=== PATIENT | female | born 1970 | race Caucasian/White ===

== ENCOUNTER 2016-10-24 05:48 | Outpatient (CLI) | payer OTHER ==
[2016-10-22 11:11] LABS: BASOPHILS 0.1 % (0.0-2.0); EOSINOPHILS 2.4 % (0-7); HEMATOCRIT 42.2 % (36.0-48.0); HEMOGLOBIN 14.2 g/dL (12-16); IMMATURE GRANULOCYTES 0.7 % (0-5); LYMPHOCYTES 13.9 % (15-50); MCH 32.5 pg (26.0-34.0); MCHC 33.6 g/dL (31.0-37.0); MCV 96.6 fL (80.0-100.0); MEAN PLATELET VOLUME 9.5 fL (7.4-10.4); MONOCYTES 9.2 % (2-11); NEUTROPHILS 73.7 % (40-80); RBC 4.37 10x6/uL (4.00-5.40); RDW 12.8 % (11.5-14.5); WBC 14.5 10x3/uL (4.8-10.8)
[2016-10-22 11:12] LABS: PLATELET COUNT 353 10x3/uL (130-400)
[~2016-10-24] VITALS: Ht 149.9 cm; Wt 47.2 kg
[~2016-10-24 05:48] MED LIST: ABILIFY2 MG PO; HYDROCODON-ACE1 EAC7 PO; INDERAL10 MG PO; NEURONTIN 400400 MG PO; NEXIUM20 MG PO; PROZAC20 MG PO
[2016-10-24 06:01] VITALS: BP 112/66; Ht 149.9 cm; Wt 47.2 kg
[2016-10-24 06:08] LABS: HCG URINE NEGATIVE (NEGATIVE)
--- NOTE | 2016-10-24 06:33 | NUR ---
0600-DR NINO NOTIFIED OF PT WBC OF 14.2, NEW ORDER RECEIVED FOR CHEST XRAY 0615-PTS POX 86-89% ON ROOM AIR AND BASE OF LUNGS ARE WET DR NINO AWARE. 06-DR NINO HERE AT BEDSIDE SPEAKING WITH PATIENT, PT SURGERY CANCELLED AND PT GIVEN PRESCRIPTIONS x2. PT STATES UNDERSTANDING AND DENIES ANY NEEDS OR CONCERNS AT THIS TIME. PT DISCHARGED HOME IN STABLE CONDITION WITH FAMILY AT SIDE. OFFICE WILL CALL PT AND RESCHEDULE SURGERY AT A LATER DATE.
== END 2016-10-24 07:00 | disposition home or self-care (01) ==
LOC: D.SDCHOLD 05:48 → D.PAN 05:48 → D.SDCHOLD 07:00 → EDSTATUS 07:30 → D.SDCHOLD 07:30
PROVIDERS: Obstetrics & Gynecology
DX: Z53.09 Procedure and treatment not carried out because of other contraindication (principal)

== ENCOUNTER 2016-11-01 05:24 | Inpatient (IN) | payer OTHER ==
[2016-10-29 10:50] LABS: EOSINOPHILS 5.8 % (0-7); HEMATOCRIT 41.5 % (36.0-48.0); HEMOGLOBIN 13.3 g/dL (12-16); IMMATURE GRANULOCYTES 2.8 % (0-5); LYMPHOCYTES 26.5 % (15-50); MCH 32.1 pg (26.0-34.0); MCV 100.2 fL (80.0-100.0); MONOCYTES 8.3 % (2-11); NEUTROPHILS 55.6 % (40-80); PLATELET COUNT 422 10x3/uL (130-400); RBC 4.14 10x6/uL (4.00-5.40); RDW 14.8 % (11.5-14.5); WBC 9.3 10x3/uL (4.8-10.8)
[2016-11-01] VITALS (13 sets, daily range): BP systolic 86–120; BP diastolic 50–63; Ht 121.9 cm; Wt 46.7 kg
[~2016-11-01] VITALS: Ht 121.9 cm; Wt 46.7 kg
[2016-11-01 06:23] LABS: HCG URINE NEGATIVE (NEGATIVE)
--- NOTE | 2016-11-01 09:50 | NUR ---
PATIENT RECEIVED TO ROOM 1214 FROM PACU VIA STRETCHER. PATIENT ASSISTED TO BED. PATIENT ORIENTED TO ROOM AND CALL SYSTEM. INITIAL VITAL SIGNS OBTAINED. PATIENT ALSO ORIENTED TO CHARGE AIDE SYSTEM. PATIENT DENIES QUESTIONS OR CONCERNS. CALL LIGHT WITHIN REACH AND SIDE RAILS UP X 2.
--- NOTE | 2016-11-01 10:05 | NUR ---
ASSESSMENT COMPLETE AT THIS TIME. NO SIGNS OF DISTRESS NOTED.
--- NOTE | 2016-11-01 10:33 | NUR ---
Pt wanting to smoke and coffee. Explained no smoking and offered patch - pt said I guess. No coffee just yet want to see how you do on clears - water provided per request over juice or sprite. IV infusing per pump with out difficulty. STRATEGY EXECUTION CONSULTANT not used yet but working, rates pain 3 on 0-10 pain scale. Sats 95% on o2. Jain to bed side gravity, blue/green tinged urine draining without difficulty. Dressing to abd C/D/I. Family at bed side.
--- NOTE | 2016-11-01 10:43 | NUR ---
Sats 95 on 4lt o2, pt resting with eyes closed. decreased o2 to 3 lt and will monitor. Pt does not use 02 at home.
--- NOTE | 2016-11-01 11:53 | NUR ---
Resting quietly with eyes closed, aroused when scanning braclet. Sats 96 % on 2lt O2. Decreased to 2 lt and will monitor. IV site clear, villeda draing to bed side gravity without difficulty. Visitor at bedside. No needs at this time.
--- NOTE | 2016-11-01 12:30 | NUR ---
PATIENT UP IN BED EATING LUNCH. VISITOR IN ROOM. PATIENT DENIES NEEDS AT THIS TIME.
--- NOTE | 2016-11-01 13:30 | NUR ---
Patient resting with eyes closed. at bedside. No signs of distress noted.
--- NOTE | 2016-11-01 14:47 | NUR ---
Pt resting quietly with eyes closed. Family in room at bed side. Pulse ox 97 % on 2 lt, will monitor.
--- NOTE | 2016-11-01 14:54 | NUR ---
Pt back to sleep/snoring. Sats dropped to 89% on RA. O2 placed at 1 lt and will monitor.
--- NOTE | 2016-11-01 14:55 | NUR ---
Sats at 90-91 on 1 lt, increased O2 to 2 lt and will monitor
--- NOTE | 2016-11-01 15:02 | NUR ---
INSTRUCTED PATIENT AND FAMILY ON IS AND COUGH AND DEEP BREATHING. PT AND FAMILY VERBLIZED UNDERSTANDING. O2 AT 2.5 lT AND SATS AT 93% AT THIS TIME. WILL CALL MD TO REPORT.
--- NOTE | 2016-11-01 15:10 | NUR ---
DR NINO NOTIFIED BY KATRINA HERRERA OF PATIENT STILL REQUIRING OXYGEN 3 LT AND PATIENT WANTING NICOTINE PATCH. NEW ORDERS RECEIVED.
[2016-11-01 15:47] LABS: BASOPHILS 0.2 % (0.0-2.0); EOSINOPHILS 2.2 % (0-7); HEMATOCRIT 32.2 % (36.0-48.0); HEMOGLOBIN 10.2 g/dL (12-16); IMMATURE GRANULOCYTES 0.9 % (0-5); LYMPHOCYTES 17.5 % (15-50); MCH 32.2 pg (26.0-34.0); MCHC 31.7 g/dL (31.0-37.0); MCV 101.6 fL (80.0-100.0); MEAN PLATELET VOLUME 8.9 fL (7.4-10.4); MONOCYTES 3.6 % (2-11); NEUTROPHILS 75.6 % (40-80); RBC 3.17 10x6/uL (4.00-5.40); RDW 15.6 % (11.5-14.5); WBC 10.8 10x3/uL (4.8-10.8)
[2016-11-01 15:55] LABS: CALC OSMOLALITY 274 mosm/kg (275-300); CALCIUM 7.5 mg/dL (8.5-10.1); CARBON DIOXIDE 28.9 mmol/L (21.0-32.0); CHLORIDE - SERUM 104 mmol/L (98-107); CREATININE - SERUM 0.6 mg/dL (0.6-1.3); GLUCOSE 82 mg/dL (74-106); POTASSIUM - SERUM 4.4 mmol/L (3.5-5.1); SODIUM 139 mmol/L (136-145); UREA NITROGEN 6 mg/dL (7-18); eGFR NON AFRICAN AMERICAN > 90 mL/min (90-120)
--- NOTE | 2016-11-01 16:00 | NUR ---
APPLIED NICOTINE PATCH REQUESTED AND ORDERED. SITTING IN BED WITH AT BEDSIDE AND FAMILY IN THE ROOM. STATES NO FURTHER NEEDS AT THIS TIME.
--- NOTE | 2016-11-01 16:20 | NUR ---
PATIENT AWAKE SITTING UP IN BED. ENCOURAGED PATIENT TO USE INCENTIVE SPIROMETER. OXYGEN SATURATION 92% ON OXIMIZER. PATIENT VISITING WITH FAMILY.
[2016-11-01 16:21] LABS: PLATELET COUNT 324 10x3/uL (130-400)
--- NOTE | 2016-11-01 17:30 | NUR ---
PATIENT RESTING QUIETLY IN ROOM. OXYGEN SATURATION 93 % AT 2.5 l VIA OXIMIZER. 250 CC'S OF CLEAR YELLOW URINE EMPTIED OUT OF LUGO CATHETER. vs TAKEN. nO SIGNS OF DISTRESS NOTED.
--- NOTE | 2016-11-01 19:15 | NUR ---
PT RECEIVED SITTING UP IN BED WITH SPOUSE AT BEDSIDE. BP - 88/50, P-107 O2 - 93% ON 2.5 LITERS O2 VIA OXYMIZER. TEMP 99.2 ORAL. IV NOTED TO RIGHT WRIST INFUSING LR @ 125 CC/HR. PATENT. DRESSING CDI. HEART RRR. LUNG SOUNDS EXPIRATORY WHEEZES BILATERALLY. BOWEL SOUNDS ACTIVE X4 QUAD. PT RATES PAIN 4/10. SCDS NOTED TO BLE. LOW TRANSVERSE INCISION NOTED TO ABDOMEN WITH DRESSING. CDI. SCANT BLEEDING NOTED TO PAD UNDER PT. ABDOMEN SOFT WITH TENDERNESS. PT REQUESTS PILLOW AT THIS TIME. DENIES OTHER NEEDS. BED LOW. PHONE AND CALL LIGHT IN REACH. SRX2.
--- NOTE | 2016-11-01 20:40 | NUR ---
EMPTIED 600 CC FROM LUGO AT THIS TIME. REASSESSED PT'S BP. READING ON LEFT ARM WAS 85/42. CHANGED ARMS. READING ON RIGHT ARM 94/47. PT DENIES ANY DIZZINESS OR LIGHTHEADEDNESS. WILL CONTINUE TO MONITOR.
--- NOTE | 2016-11-01 21:20 | NUR ---
PT RESTING QUIETLY AT THIS TIME. DENIES NEEDS. BED LOW. PHONE AND CALL LIGHT IN REACH. SRX2.
--- NOTE | 2016-11-01 22:25 | NUR ---
PT SITTING UP IN BED RESTING QUIETLY AT THIS TIME. AROUSED EASILY. BP - 106/52 - P-105. PT JUST FINISHED DRINKING ICE WATER. WILL REASSESS TEMP. REQUESTS MORE ICE WATER. DENIES OTHER NEEDS. 02 SAT 92% ON 2.5 L VIA OXYMIZER. EMPTIED 650 CC FROM LUGO AT THIS TIME. BED LOW. PHONE AND CALL LIGHT IN REACH. SRX2.
--- NOTE | 2016-11-01 22:50 | NUR ---
REASSESSED TEMP AT THIS TIME. 99.6 ORALLY. WILL CONTINUE TO MONITOR. PT SITTING UP IN BED ON BACK. STATES SHE HAS USED HER IS AND COUGHED. PT REQUESTS COFFEE AT THIS TIME. DENIES OTHER NEEDS. BED LOW. PHONE AND CALL LIGHT IN REACH. SRX2.
--- NOTE | 2016-11-01 23:45 | NUR ---
PT LYING IN BED RESTING QUIETLY AT THIS TIME. SCANT BLEEDING NOTED TO PAD UNDER PT. DIME SIZE SEROSANGINOUS DISCOLORATION NOTED TO DRESSING. DRAINAGE HAS NOT SATURATED DRESSING AT THIS TIME. WILL CONTINUE TO MONITOR. BP 110/58 P-107 O2 94% ON 2.5 L O2 VIA OXYMIZER. VENITA PADS CHANGED AT THIS TIME. INSTRUCTED PT TO LIMIT MOVEMENT TO EVERY 2 HOURS FOR PAIN CONTROL. PT VERBALIZED UNDERSTANDING. DENIES NEEDS AT THIS TIME. BED LOW. PHONE AND CALL LIGHT IN REACH. SRX2.
--- NOTE | 2016-11-02 02:02 | NUR ---
PT SITTING UP IN BED WATCHING TV AT THIS TIME. TEMP-98.8. P -98 O2-93% ON 2.5 L O2 VIA OXYMIZER. NO BLOOD NOTED TO VENITA PADS UNDER PT. DRESSING - NO CHANGE. PT REQUESTS COFFEE AT THIS TIME. DENIES OTHER NEEDS. BED LOW. PHONE AND CALL LIGHT IN REACH. SRX2.
[2016-11-02 04:00] VITALS: BP 100/54
--- NOTE | 2016-11-02 04:00 | NUR ---
PT RESTING QUIETLY AT THIS TIME. BP-100/54 P-93 TEMP 98.7. O2 - 91% ON 2.5 L O2 VIA OXYMIZER. EMPTIED 900 CC FROM LUGO AT THIS TIME. PT RATES PAIN 06/17. SCANT LOCHIA NOTED TO VENITA PAD UNDER PT. PLACED NEW VENITA PAD. DRESSING - NO CHANGE. PT REQUESTS ICE WATER AT THIS TIME. DENIES OTHER NEEDS. BED LOW. PHONE AND CALL LIGHT IN REACH. SRX2.
--- NOTE | 2016-11-02 06:34 | NUR ---
PT RESTING QUIETLY AT THIS TIME. ADMINISTERED TORADOL IVP PER ORDERS FOR PAIN 06/17. SCANT AMOUNT BLOOD NOTED TO VENITA PAD. CHANGED VENITA PAD. EMPTIED 950 CC FROM LUGO AT THIS TIME. PT DENIES OTHER NEEDS. BED LOW. PHONE AND CALL LIGHT IN REACH. SRX2.
[2016-11-02 07:20] VITALS: BP 95/59
--- NOTE | 2016-11-02 07:20 | NUR ---
PT AWAKE, ALERT, ORIENTED, SITTING UP IN BED. 02 ON PER OXIMIZER NC AT 2.5 LITERS. EXP WHEEZES HEARD BILATERALLY IN UPPER LOBES. BS PRESENT, ABD SOFT. DRESSING TO LOWER ABD C/D/I. LUGO DRAINING CLEAR YELLOW URINE, [address] ENCOURAGED USE OF IS. PT USED ONCE AND BEGAN COUGHING AND SAID " THAT'S ALL YOUR GETTING WITH THAT". DISCUSSED PLAN OF CARE. WILL D/C LUGO AND IVF'S WITH MD'S ORDERS, AMBULATE, SHOWER. PT ASKS RE GOING OUT TO SMOKE. DEFERRED ANSWER PENDING DOCTOR'S VISIT. SIG OTHER AT BEDSIDE. BASIN PROVIDED FOR PT TO BRUSH TEETH.
[2016-11-02 07:27] LABS: BASOPHILS 0.1 % (0.0-2.0); EOSINOPHILS 0.4 % (0-7); HEMATOCRIT 31.2 % (36.0-48.0); HEMOGLOBIN 9.8 g/dL (12-16); IMMATURE GRANULOCYTES 0.6 % (0-5); MCH 32.1 pg (26.0-34.0); MCHC 31.4 g/dL (31.0-37.0); MCV 102.3 fL (80.0-100.0); MEAN PLATELET VOLUME 8.8 fL (7.4-10.4); MONOCYTES 4.4 % (2-11); NEUTROPHILS 85.5 % (40-80); PLATELET COUNT 326 10x3/uL (130-400); RBC 3.05 10x6/uL (4.00-5.40); RDW 15.8 % (11.5-14.5)
[2016-11-02 07:29] LABS: WBC 18.4 10x3/uL (4.8-10.8)
[2016-11-02 07:39] LABS: CALC OSMOLALITY 270 mosm/kg (275-300); CALCIUM 7.7 mg/dL (8.5-10.1); CARBON DIOXIDE 29.4 mmol/L (21.0-32.0); CHLORIDE - SERUM 101 mmol/L (98-107); CREATININE - SERUM 0.5 mg/dL (0.6-1.3); GLUCOSE 97 mg/dL (74-106); POTASSIUM - SERUM 3.8 mmol/L (3.5-5.1); SODIUM 137 mmol/L (136-145); eGFR NON AFRICAN AMERICAN > 90 mL/min (90-120)
[2016-11-02 07:40] LABS: UREA NITROGEN 4 mg/dL (7-18)
--- NOTE | 2016-11-02 08:34 | NUR ---
RESTING IN BED ON RIGHT SIDE. TURNS SELF EASILY FROM SIDE TO SIDE. SIG OTHER AT BEDSIDE.
--- NOTE | 2016-11-02 09:19 | NUR ---
LINENS PROVIDED FOR SPOUSE TO SHOWER.
--- NOTE | 2016-11-02 09:49 | NUR ---
PT RESTING ON LEFT SIDE. ASKS RE ANOTHER DOSE OF TORADOL. ADVISED NOT YET TIME.
[2016-11-02 10:52] VITALS: BP 96/61
--- NOTE | 2016-11-02 10:52 | NUR ---
02 SAT NOTED ON RA. 02 REPLACED AT 3L PER OXIMIZER. MULTIPLE FAMILY MEMBERS AT BEDSIDE.
--- NOTE | 2016-11-02 11:25 | NUR ---
LUGO CATH D/C'D PER ORDER, WITH 700 IN BAG. IVF'S D/C'D. ADVISED MD ORDERED PERCOCET, BUT PT SAID SHE TAKES NORCO. DR. BOSS ADVISED.
--- NOTE | 2016-11-02 12:17 | NUR ---
PT UP TO SHOWER ASSISTED BY SPOUSE.
--- NOTE | 2016-11-02 12:36 | NUR ---
DRESSING REMOVED FROM LOWER ABD INCISION. INCISION LINE C/D/I WITH RHINA. COVERED WITH VENITA PAD FOR COMFORT. SITTING UP AT BEDSIDE EATING LUNCH.
--- NOTE | 2016-11-02 12:37 | NUR ---
UP TO AMBULATE IN HALLWAY.
--- NOTE | 2016-11-02 13:00 | NUR ---
02 SAT 92% ON 2L PER NC. PT REPORTS OXYGEN DRYING NASAL PASSAGES. PAGED RT TO BRING HUMIDIFIER.
--- NOTE | 2016-11-02 13:36 | NUR ---
CONCUR WITH WITNESS TO WASTE OF DILAUDID.
--- NOTE | 2016-11-02 13:36 | NUR ---
2.8 MG DILAUDID WASTED FROM CURRICULUM AND INSTRUCTION DIRECTOR, WITNESSED BY EDUARDO TURNER RN.
--- NOTE | 2016-11-02 13:46 | NUR ---
PT SITTING UP IN BED TALKING WITH FAMILY. OFFERED PT TOBACCO QUITLINE. SHE DECLINED.
--- NOTE | 2016-11-02 14:06 | NUR ---
OFFERED PT REFERRAL TO TOBACCO QUITLINE, SHE DECLINED. STATES NICOTINE PATCH HELPING HER CRAVINGS, AND WOULD LIKE RX WHEN D/C'D.
--- NOTE | 2016-11-02 14:38 | NUR ---
PT TRANSFERRED AMBULATORY TO ROOM 1257. ORIENTED TO ROOM, CALL LIGHT, ETC. 02 PLACED ON @ 2L PER NC, HUMIDIFIED. SIG OTHER AT BEDSIDE.
[2016-11-02 14:50] VITALS: BP 109/69
--- NOTE | 2016-11-02 14:50 | NUR ---
TORADOL 30 MG IV GIVEN FOR INCISIONAL PAIN. VSS. 02 AT 93% ON 2L.
--- NOTE | 2016-11-02 14:54 | NUR ---
PT VOIDED 350 CC LUIS URINE.
--- NOTE | 2016-11-02 15:32 | NUR ---
PT SITTING UP IN BED LOOKING AT IPAD. NO NEEDS AT THIS TIME.
--- NOTE | 2016-11-02 16:13 | NUR ---
PT CALLS ON LIGHT. THIS NURSE AND Marium TURNER RN TO ROOM. PT STATES "I'M SUPPOSED TO GET PAIN MEDICINE AT 4 O'CLOCK". PT STATES PAIN OF "6" ON 0-10 PAIN SCALE. NORCO 10/325 GIVEN PO ORDERED. PT INSTRUCTED ON PAIN MED BEING PRN AND PT HAS TO REQUEST PRN MEDICATION. PT VERBALIZES UNDERSTANDING. NEXT DUE PAIN MED INFO PLACED IN DRY ERASE BOARD FOR PT.
--- NOTE | 2016-11-02 17:00 | NUR ---
PT SITTING UP IN BED. CONSUMING REG DIET. DIDI WELL. DENIES NEEDS OR C/O.
--- NOTE | 2016-11-02 18:00 | NUR ---
PT SITTING UP IN BED. VISITS WITH SO.
--- NOTE | 2016-11-02 19:04 | NUR ---
REPORT GIVEN TO ON-COMING SHIFT.
[2016-11-02 19:18] VITALS: BP 98/58
--- NOTE | 2016-11-02 19:18 | NUR ---
RN TO RESUME CARE OF PATIENT IN ROOM 1257. PT REC'D SITTING IN BED IN SEMI FOWLERS POSITION WITH SPOUSE AT BEDSIDE. BEDSIDE REPORT REC'D FROM Miguel SALINAS RN. PT A&O X3, CURRENTLY HAS O2 LAYING IN BED BESIDE HER STATING THAT HER NOSTRILS WERE VERY DRY EVEN WITH HUMIDIFIED O2. O2 SAT 91% ON RA, REQUESTS TO LEAVE O2 OFF AT THIS TIME. PAIN CURRENTLY 4/10 TO INTERMITTENT ABD CRAMPING/ACHING/SORENESS, AND INCISIONAL BURNING. INCISION WELL APPROXIMATED WITH 18 RHINA INTACT, CLEAN AND DRY WITH NO DRAINAGE NOTED. PERIPAD COVERING INCISION AT THIS TIME, REPLACED WITH PILLOWCASE D/T C/O ITCHING FROM TAILS OF PERIPAD. INSTRUCTED THAT WHEN SHE GOT HOME SHE COULD USE A SOFT WASH CLOTHE/TOWEL, PILLOW CASE, OR EVEN GAUZE DRSG WAS TO PREVENT WAISTLINE OF CLOTHING FROM RUBBING AND IRITIATING INCISION, VERBALIZED UNDERSTANDING. BOWEL SOUNDS PRESENT AND ACTIVE X4 QUAD, REPORT THAT SHE HAS HAD BM AND IS PASSING FLATUS AT THIS TIME. DENIES DIFFICULTY VOIDING, REPORTS OCCASIONAL "SPOTTING" NONE NOTED TO PERIPAD AT THIS TIME, STATES SHE HAS HAD NONE SINCE 1400 THIS AFTERNOON. PT REPORTS THAT SHE HAS BEEN USING INCENTIVE SPIROMETER, DEMONSTRATED PROPER USE X10 TO RN. INSTRUCTED ON INCISIONAL CARE FOR D/C AND S/S OF INFECTION/COMPLICATIONS TO REPORT AND PAIN MGMT TECHNIQUES AT D/C VERBALIZED UNDERSTANDING. PLAN OF CARE DISCUSSED WITH PT AND SPOUSE, BOTH VERBALIZED UNDERSTANDING AND DENY QUESTIONS. VSS. SL FROM LEFT FA REMOVED PER PT REQUEST FOLLOWING REVIEW OF LAB VALUES, PT VERBALIZED UNDERSTANDING THAT PIV WOULD HAVE TO BE RESITED IF NEED FOR IV ACCESS OCCURS. ICE WATER GIVEN PER REQUEST. PT UP TO AMBULATE AROUND UNIT WITH SPOUSE AT THIS TIME. BED IN LOW POSITION, CL/PHONE PLACED ON BEDSIDE TABLE BESIDE BED.
--- NOTE | 2016-11-02 19:50 | NUR ---
PT BACK TO ROOM FROM AMBULATING WITH SPOUSE. REPORTS THAT SHE AND SPOUSE AMBULATED TO VENDING MACHINES BY CAFETERIA, DENIES NEEDS AT THIS TIME. PAIN 4-5/10, DENIES NEED FOR PAIN MEDICATION AT THIS TIME.
--- NOTE | 2016-11-02 20:20 | NUR ---
PT CALLED VIA . PAIN 7-04/17. REQUESTS MOTRIN AND NORCO FOR PAIN. GIVEN PER REQUEST. ICE WATER GIVEN. PT LAYING IN BED WITH GRIMACE ON FACE. SPOUSE SITTING ON COUCH AT THIS TIME, SUPPORTIVE OF PATIENT. PT REPORTS INCISIONAL BURNING AND ABD CRAMPING AND ACHING. DENIES ADDITIONAL NEEDS AT THIS TIME.
--- NOTE | 2016-11-02 21:05 | NUR ---
PAIN REASSESSMENT COMPLETED. PAIN CURRENTLY /, DENIES NEED FOR ADDITIONAL INTERVENTION, STATES THAT SHE IS JUST GOING TO TRY TO REST AT THIS TIME.
--- NOTE | 2016-11-02 21:19 | NUR ---
PT REQUESTS AMBIEN AT THIS TIME. STATES THAT SHE HAS NEVER TAKEN THIS MEDICATION IN THE PAST AND REQUESTS TO TAKE 5 MG STARTING OUT AND THEN THE ADDITIONAL 5 MG PRN. 5 MG DOSE GIVEN, ADDITIONAL TAB RETURNED TO BOX. VSS AT THIS TIME. PT REQUESTS NOT TO BE WOKE DURING THE NIGHT FOR 0000 V/S IF SHE IS SLEEPING AT THAT TIME. AMBIEN USE AND S/E DISCUSSED, VERBALIZED UNDERSTANDING. ROUNDING EXPLAINED TO PATIENT, VERBALIZED UNDERSTANDING, EXPLAINED THAT IF SHE WERE RESTING AND RESPIRATIONS WERE REGULAR, RN WOULD NOT WAKE UNTIL 0400 V/S. BED IN LOW POSITION, CL/PHONE WITHIN PT REACH. SPOUSE REMAINS AT BEDSIDE.
--- NOTE | 2016-11-02 22:19 | NUR ---
ROUND MADE. PT SLEEPING AT THIS TIME. RESPIRATIONS REGULAR, NO S/S OF DISTRESS NOTED. SPOUSE WATCHING TV AT THIS TIME, DENIES NEEDS. BED REMAINS IN LOW POSITION WITH UPPER SIDE RAILS RAISED X2. CL/PHONE WITHIN PT REACH. WILL CONT TO MONITOR AND ASSIST PRN.
--- NOTE | 2016-11-03 00:20 | NUR ---
ROUNDS MADE. PT SLEEPING AT THIS TIME. RESPIRATIONS REGULAR, NO S/S OF DISTRESS NOTED. SPOUSE SLEEPING ON COUCH IN ROOM. CL/PHONE ON BEDSIDE TABLE WITHIN PT REACH. BED REMAINS IN LOW POSITION WITH UPPER SIDE RAILS RAISED X2. PT LEFT SLEEPING PER REQUEST, WILL CHECK V/S AT NEXT SCHEDULED TIME.
--- NOTE | 2016-11-03 02:24 | NUR ---
ROUNDS MADE. PT SLEEPING AT THIS TIME. RESPIRATIONS REGULAR, NO S/S OF DISTRESS NOTED. BED REMAINS IN LOW POSITION WITH UPPER SIDE RAILS RAISED X2, HOB ELEVATED TO 20 DEGREES. CL/PHONE REMAIN WITHIN REACH. SPOUSE AT BEDSIDE SLEEPING ON COUCH AT THIS TIME. WILL CONT TO MONITOR AND ASSIST PRN.
--- NOTE | 2016-11-03 04:43 | NUR ---
CALLED VIA CL. PT TEARFUL UPON RN ENTERING ROOM, STATES THAT SHE GOT UP TO VOID AND IS IN TERRIBLE PAIN AT THIS TIME. PAIN 10/10 TO ABD AND INCISION, DESCRIBED PRESSURE, REPORTS THAT IT OCCURRED FOLLOWING VOIDING ALONG WITH INCISIONAL BURNING AND ABD ACHING. REQUEST NORCO AND MOTRIN, GIVEN PER REQUEST. STATES THAT SHE STILL FEELS THE NEED TO VOID, REFUSED TO ALLOW RN TO ASSESS FOR DISTENDED BLADDER. BLADDER SCAN DISCUSSED WITH PT AND SHE IS AGREEABLE ONCE RN ALLOWS TIME FOR PAIN MEDS TO WORK.
--- NOTE | 2016-11-03 04:51 | NUR ---
DR. BOSS NOTIFIED OF PT C/O PRESSURE TO ABD FOLLOWING VOID AND CONTINUING TO FEEL THE NEED TO VOID, PT REFUSALL TO ALLOW RN TO ASSESS FOR DISTENDED BLADDER. MD AGREEABLE FOR BLADDER SCAN TO BE DONE.
[2016-11-03] MEDS ORDERED: IBUPROFEN600 MG PO (05:05)
[2016-11-03] MEDS ORDERED: HYDROCODONE-APA1 TAB PO (05:05)
[2016-11-03] MEDS ORDERED: NICODERM C1 PATCH .2 TRANSDERM (05:06)
--- NOTE | 2016-11-03 05:31 | NUR ---
PAIN NOW 4-5/10. BLADDER SCAN DONE, SHOWING LESS THAN 30 MLS OVER 3 AREAS OF BLADDER, EXPLAINED THIS TO PT. VERBALIZED UNDERSTANDING AND STATES THAT SINCE PAIN MEDS HAVE STARTED WORKING PRESSURE IS GONE.
[2016-11-03 06:35] LABS: HEMOGLOBIN 9.9 g/dL (12-16); MCH 31.9 pg (26.0-34.0); MCHC 30.9 g/dL (31.0-37.0); MCV 103.2 fL (80.0-100.0); MEAN PLATELET VOLUME 9.1 fL (7.4-10.4); RBC 3.1 10x6/uL (4.00-5.40); RDW 15.7 % (11.5-14.5); WBC 15.2 10x3/uL (4.8-10.8)
--- NOTE | 2016-11-03 06:42 | NUR ---
AM HEMOGRAM STABLE, WILL PROCEED WITH D/C HOME PER MD ORDERS.
--- NOTE | 2016-11-03 07:50 | NUR ---
PATIENT HAS DC ORDERS WRITTEN THIS MORNING BY . TO ROOM TO DC PATIENT BUT CURRENTLY OUT AMBULATING. WILL COMPLETE DC INSTRUCTIONS WHEN SHE RETURNS.
--- NOTE | 2016-11-03 08:20 | NUR ---
COMPLETED DC TEACHING TO INCLUDE POST-OP CARE, S&S OF INFECTION, MEDICATION ADMINISTRATION, PAIN MANAGEMENT AND FOLLOW-UP. VERBAL AND WRITTEN INFORMATION GIVEN. VERBALIZED UNDERSTANDING. DC'D VIA WHEELCHAIR TO CAR WITH FAMILY MEMBER, PT HAS INSTRUCTIONS PRESCRIPTIONS AND ALL BELONGINGS FROM ROOM.
== END 2016-11-03 08:20 | disposition home or self-care (01) | DRG 743 ==
LOC: D.SDCHOLD 05:24 → D.WS 05:24 → D.SDCHOLD 07:30 → D.WS 09:34 → D.LD 11-02 14:39
PROVIDERS: Specialist; ADMIT Obstetrics & Gynecology
PROC: 0UT20ZZ Resection of Bilateral Ovaries, Open Approach (ICD-10-PCS; 2016-11-01)
PROC: 0UT70ZZ Resection of Bilateral Fallopian Tubes, Open Approach (ICD-10-PCS; 2016-11-01)
PROC: 0UT90ZZ Resection of Uterus, Open Approach (ICD-10-PCS; principal; 2016-11-01 07:30)
PROC: 0UTC0ZZ Resection of Cervix, Open Approach (ICD-10-PCS; 2016-11-01 07:30)
DX: N92.0 Excessive and frequent menstruation with regular cycle (principal); N80.9 Endometriosis, unspecified; N73.6 Female pelvic peritoneal adhesions (postinfective); Z72.0 Tobacco use

== ENCOUNTER → 2017-04-14 16:32 | Outpatient (CLI) | payer MEDICAID ==
[2016-11-01 13:32] VITALS: BMI 31.4
[~2017-04-14 16:32] MED LIST changes: +HYDROCODONE-APA1 TAB PO; +IBUPROFEN600 MG PO; +NICODERM C1 PATCH .2 TRANSDERM
== END | disposition home or self-care (01) ==
LOC: D.LABREF 16:32
DX: R07.9 Chest pain, unspecified (principal)

== ENCOUNTER → 2017-04-17 07:29 | Outpatient (CLI) | payer BC ==
[2016-11-01 13:32] VITALS: BMI 31.4
--- NOTE | ~2017-04-17 | EC ---
PATIENT:NARGIS CUELLO DATE OF SERVICE: 04/17/17 SEX: F MEDICAL RECORD: [id number] DATE OF : [birth year] LOCATION:D.RT AGE OF PATIENT: 47 ADMISSION DATE: 04/17/17 REFERRING PHYSICIAN: INTERPRETING PHYSICIAN: AUSTIN ALMONTE MD ECHOCARDIOGRAM REPORT ECHO CHARGES 4 ECHO COMPLETE CLINICAL DIAGNOSIS: CP ECHOCARDIOGRAPHIC MEASUREMENTS (adult normal given) AC root (d.<3.7cm) 2.9 cm LV Septum d (<1.2 cm> 1.0 cm Valve Excursion 1.8 cm LV Septum (systole) 1.4 cm Left Atria (s.<4.0cm> 2.8 cm LVPW d(<1.2cm) 0.9 cm RV (d.<2.3cm) 2.4 cm LVPW (sytole) 1.4 cm LV diastole(<5.6CM) 5.0 cm MV E-F(>70mm/sec) cm LV systole 3.2 cm LVOT Diameter 1.7 cm MV exc.(>10mm) cm Est.ejection fraction (50-75%) % Pericardial Effusion N DOPPLER: LVIT cm/sec A 56.0 cm/sec E 85.0 cm/sec LA cm/sec RVSP 33.2 mmHg LVOT 107 cm/sec AOP1/2T m/s Asc. Ao 155 cm/sec RVOT 66.0 cm/sec RA cm/sec PA 71.0 cm/sec AV Gradient Peak 9.6 mmHg AV Mean 4.2 mmHg AV Area 1.6 cm MV Gradient Peak 4.4 mmHg MV Mean 1.8 mmHg MV Area cm COMMENTS: ECHO WITH BUBBLE STUDY [employer] Worker: Sierra DUMONTOE Amr Physician: 1 Dr. Almonte TAPE# PACS DATE OF SERVICE: 04/17/2017 Echocardiogram with Bubble Study FINDINGS: 1. Left ventricular chamber size is within normal limits. Left ventricular systolic function is normal. Overall ejection fraction estimated at 55%. 2. Left atrium, right atrium, and right ventricular chamber sizes are within normal limits. 3. Valvular structures have normal structure and motion. ECHOCARDIOGRAM REPORT [id number] NARGIS CUELLO Y 4. Doppler interrogation reveals mild mitral regurgitation, mild tricuspid regurgitation, no other valvular insufficiency or stenosis. Pulmonary systolic pressure is normal estimated at 33 mmHg. 5. Bubble study was performed, this is normal with no left to right or right to left shunt. TRANSINT:[id number] Voice Confirmation ID: [id number] DOCUMENT ID: [id number] AUSTIN ALMONTE MD CC: [id number] DICTATION DATE: 04/17/17 1244 GEAR MACHINE OPERATOR GENERAL: 04/17/17 1905 [facility] [address] [id number]
[2017-04-17 10:37] LABS: BASOPHILS 0.2 % (0-2); EOSINOPHILS 0.1 % (0-7); HEMATOCRIT 32.8 % (36.0-48.0); HEMOGLOBIN 10.1 g/dL (12-16); IMMATURE GRANULOCYTES 1.2 % (0-5); LYMPHOCYTES 12.5 % (15-50); MCH 35.8 pg (26.0-34.0); MCHC 30.8 g/dL (31.0-37.0); MCV 116.3 fL (80.0-100.0); MEAN PLATELET VOLUME 9.2 fL (7.4-10.4); PLATELET COUNT 267 10x3/uL (130-400); RBC 2.82 10x6/uL (4.00-5.40); RDW 16.6 % (11.5-14.5); WBC 11.1 10x3/uL (4.8-10.8)
[2017-04-17 11:08] LABS: ALBUMIN 3.8 g/dL (3.4-5.0); ALKALINE PHOSPHATASE 36 U/L (46-116); ALT (SGPT) 18 U/L (10-68); BILIRUBIN - TOTAL 1.18 mg/dL (0.2-1.3); CALC OSMOLALITY 274 mosm/kg (275-300); CALCIUM 8.5 mg/dL (8.5-10.1); CARBON DIOXIDE 30.4 mmol/L (21.0-32.0); CHLORIDE - SERUM 101 mmol/L (98-107); CREATININE - SERUM 0.6 mg/dL (0.6-1.3); GLUCOSE 102 mg/dL (74-106); POTASSIUM - SERUM 3.8 mmol/L (3.5-5.1); PROTEIN - SERUM 7.1 g/dL (6.4-8.2); SODIUM 138 mmol/L (136-145); UREA NITROGEN 11 mg/dL (7-18); eGFR NON AFRICAN AMERICAN > 90 mL/min (90-120)
[2017-04-18 10:17] LABS: ANA REFLEX - DIRECT Negative (Negative)
[2017-04-18 14:20] LABS: IMMUNOGLOBULIN E 500 IU/mL (0-100)
== END | disposition home or self-care (01) ==
LOC: D.RT 07:29
PROVIDERS: Internal Medicine Pulmonary Disease
DX: J96.91 Respiratory failure, unspecified with hypoxia (principal); R07.9 Chest pain, unspecified; R79.1 Abnormal coagulation profile

== ENCOUNTER → 2017-05-29 19:17 | Outpatient (CLI) | payer BC ==
[2016-11-01 13:32] VITALS: BMI 31.4
== END | disposition home or self-care (01) ==
LOC: D.SLEEP 19:17
DX: G47.33 Obstructive sleep apnea (adult) (pediatric) (principal)

== ENCOUNTER → 2017-06-02 19:12 | Outpatient (CLI) | payer BC ==
[2016-11-01 13:32] VITALS: BMI 31.4
== END | disposition home or self-care (01) ==
LOC: D.SLEEP 19:12
DX: G47.33 Obstructive sleep apnea (adult) (pediatric) (principal)

== ENCOUNTER 2017-08-20 10:27 | Inpatient (IN) | payer BC ==
[~2017-08-20] VITALS: Ht 121.9 cm; Wt 53.6 kg
[2017-08-20 11:21] VITALS: BP 112/73; BMI 36.0
[2017-08-20 13:10] LABS: BASOPHILS 0.3 % (0-2); EOSINOPHILS 0.6 % (0-7); HEMATOCRIT 32.9 % (36.0-48.0); HEMOGLOBIN 10.1 g/dL (12-16); MCH 34.6 pg (26.0-34.0); MCHC 30.7 g/dL (31.0-37.0); MCV 112.7 fL (80.0-100.0); MEAN PLATELET VOLUME 9.8 fL (7.4-10.4); MONOCYTES 6.7 % (2-11); NEUTROPHILS 64.4 % (40-80); PLATELET COUNT 293 10x3/uL (130-400); RBC 2.92 10x6/uL (4.00-5.40); RDW 17.7 % (11.5-14.5); WBC 15.8 10x3/uL (4.8-10.8)
[2017-08-20 13:23] LABS: ALBUMIN 3.7 g/dL (3.4-5.0); ALKALINE PHOSPHATASE 44 U/L (46-116); ALT (SGPT) 20 U/L (10-68); BILIRUBIN - TOTAL 1.43 mg/dL (0.2-1.3); CALC OSMOLALITY 281 mosm/kg (275-300); CALCIUM 8.8 mg/dL (8.5-10.1); CARBON DIOXIDE 30.1 mmol/L (21.0-32.0); CHLORIDE - SERUM 105 mmol/L (98-107); CREATININE - SERUM 0.6 mg/dL (0.6-1.3); GLUCOSE 82 mg/dL (74-106); POTASSIUM - SERUM 4.2 mmol/L (3.5-5.1); PROTEIN - SERUM 6.6 g/dL (6.4-8.2); SODIUM 142 mmol/L (136-145); UREA NITROGEN 12 mg/dL (7-18); eGFR NON AFRICAN AMERICAN > 90 mL/min (90-120)
[2017-08-20 17:02] VITALS: BP 85/45
[2017-08-20 17:17] LABS: CKMB 0.8 U/L (0.0-3.6); CREATINE KINASE 64 UL (21-215)
[2017-08-20 17:23] LABS: TROPONIN-I < 0.017 ng/mL (0.000-0.060)
[2017-08-20 20:00] VITALS: BP 93/45
--- NOTE | 2017-08-20 20:00 | NUR ---
ASSESSMENT PER FLOWSHEET. IV PATENT RT FOREAR. OF NS AT KVO. O2 ON 5L/M PER NC. PT ON CONTINUOUS PULSE OX SHOWING 94-95%SR UP X2 CALL LIGHT WITHIN REACH.
--- NOTE | 2017-08-20 21:00 | NUR ---
MEDS GIVEN PER MAR.
[2017-08-20 23:57] LABS: CKMB 0.5 U/L (0.0-3.6); CREATINE KINASE 42 UL (21-215)
[2017-08-20 23:59] LABS: TROPONIN-I < 0.017 ng/mL (0.000-0.060)
[2017-08-21] VITALS: BP 90/48
--- NOTE | 2017-08-21 | NUR ---
EYES CLOSED RESPIRATIONS WITH EASE AND UNLABORED.
--- NOTE | 2017-08-21 03:00 | NUR ---
RESTING QUIETLY DENIES NEEDS.
[2017-08-21 04:00] VITALS: BP 103/70
[2017-08-21 04:43] LABS: BASOPHILS 0 % (0-2); EOSINOPHILS 0 % (0-7); HEMATOCRIT 30.2 % (36.0-48.0); HEMOGLOBIN 9.2 g/dL (12-16); IMMATURE GRANULOCYTES 1.2 % (0-5); LYMPHOCYTES 10.9 % (15-50); MCH 34.5 pg (26.0-34.0); MCHC 30.5 g/dL (31.0-37.0); MCV 113.1 fL (80.0-100.0); MEAN PLATELET VOLUME 9.5 fL (7.4-10.4); MONOCYTES 2.8 % (2-11); NEUTROPHILS 85.1 % (40-80); PLATELET COUNT 268 10x3/uL (130-400); RBC 2.67 10x6/uL (4.00-5.40); RDW 17.8 % (11.5-14.5)
[2017-08-21 04:56] LABS: WBC 6.7 10x3/uL (4.8-10.8)
[2017-08-21 05:16] LABS: ALBUMIN 3.4 g/dL (3.4-5.0); ALKALINE PHOSPHATASE 42 U/L (46-116); ALT (SGPT) 25 U/L (10-68); CALC OSMOLALITY 274 mosm/kg (275-300); CALCIUM 8.6 mg/dL (8.5-10.1); CARBON DIOXIDE 27.6 mmol/L (21.0-32.0); CHLORIDE - SERUM 103 mmol/L (98-107); CKMB 0.5 U/L (0.0-3.6); CREATINE KINASE 36 UL (21-215); CREATININE - SERUM 0.7 mg/dL (0.6-1.3); POTASSIUM - SERUM 4.5 mmol/L (3.5-5.1); PROTEIN - SERUM 6.6 g/dL (6.4-8.2); SODIUM 136 mmol/L (136-145); TROPONIN-I < 0.017 ng/mL (0.000-0.060); UREA NITROGEN 15 mg/dL (7-18); eGFR NON AFRICAN AMERICAN > 90 mL/min (90-120)
[2017-08-21 05:21] LABS: GLUCOSE 126 mg/dL (74-106)
[2017-08-21 07:01] LABS: UDS - AMPHET NEGATIVE QUAL (NEGATIVE); UDS - BARB NEGATIVE QUAL (NEGATIVE); UDS - BENZO NEGATIVE QUAL (NEGATIVE); UDS - COCAINE NEGATIVE QUAL (NEGATIVE); UDS - OPIATE POSITIVE QUAL (NEGATIVE); UDS - PCP NEGATIVE QUAL (NEGATIVE); UDS - THC NEGATIVE QUAL (NEGATIVE)
--- NOTE | 2017-08-21 07:10 | NUR ---
REPORT RECEIVED, ASSUMED CARE OF PT. RESTING, WATCHING TV, NO NEEDS VOICED AT THIS TIME. R FOREARM IV SALINE LOCKED, DRSG C/D/I. 02 AT 5L VIA NASAL CANNULA. BED IN LOWEST POSITION, SIDE RAILS UP X 2, CALL LIGHT WITHIN REACH.
[2017-08-21 08:48] VITALS: BP 102/63
[2017-08-21 10:53] LABS: % SATURATION 50 % (15-55); IRON 86 ug/dl (35-150); TOTAL IRON BIND CAPACITY 171 ug/dl (260-445); UNSAT IRON BIND CAPACITY 85 ug/dl (150-375)
[2017-08-21 12:33] VITALS: BP 103/60
--- NOTE | 2017-08-21 15:31 | NUR ---
Patient Name: NARGIS CUELLO Admission Status: Elective Accout number: [id number] Admission Date: 08-20-2017 : 1970 Admission Diagnosis: Attending: WARREN BLANCO Current LOS: 1 Anticipated DC Date: 08-25-2017 Planned Disposition: Home Primary Insurance: [employer] [facility] [employer] Discharge Planning Comments: CM MET WITH PATIENT REGARDING D/C NEEDS AND PLANS. PATIENT STATED SHE LIVES WITH HER SPOUSE AND HE WILL DRIVE HER HOME AT DISCHARGE. PATIENT STATED SHE DOES NOT HAVE ANY STEPS OR STAIRS AT HER HOME. PATIENT IS INDEPENDENT WITH HER CARE AND HAS A WALKER, BS COMMODE, SHOWER CHAIR, CANE, C-PAP, OXYGEN, NEBULIZER, AND PORTABLE O2. PATIENT DOES NOT REMEMBER WHO SUPPLIES HER OXYGEN BUT WILL HAVE HER SPOUSE BRING HER PORTABLE AT DISCHARGE. PATIENTS PCP IS DR. BLANCO AND PHARMACY IS [facility]. CM WILL CONTINUE TO FOLLOW PATIENT WITH D/C NEEDS AND PLANS. PCP DR. BLANCO [facility] [id number] JAYDA (DAUGHTER) [phone] [employer] H[employer] Developer: Marjorie Rivera Is the patient Alert and Oriented? Yes 0 * How many steps to enter\exit or inside your home? 0 0 * PCP DR. BLANCO 0 * Pharmacy [facility] 0 * Preadmission Environment Home with Family 0 * ADLs Independent 0 * Equipment Bedside Commode Cane CPAP Nebulizer Oxygen Shower Chair Walker 0 * List name and contact numbers for known caregivers / representatives who currently or will assist patient after discharge: JAYDA (DAUGHTER) [phone] * Community resources currently utilized None 0 * Additional services required to return to the preadmission environment? Yes 0 * Can the patient safely return to the preadmission environment? Yes 0 * Has this patient been hospitalized within the prior 30 days at any hospital? No 0 Grand Total: 0
[2017-08-21 15:55] VITALS: BP 99/63
[2017-08-21 20:00] VITALS: BP 103/58
--- NOTE | 2017-08-21 20:00 | NUR ---
ASSESSMENT PER FLOWSHEET. IV PATENT RT FOREARM SALINE LOCKED. O2 ON 5 L/M PER NC. ALERT/ORIENTED X3 DENIES NEEDS.
--- NOTE | 2017-08-21 21:30 | NUR ---
MEDS GIVEN PER NOV. UP AND ABOUT IN ROOM ON ROOM AIR. NO DISTRESS. UP AND AMBULATED OUTSIDE FOR A SMOKE.
--- NOTE | 2017-08-21 22:30 | NUR ---
RETURNS TO ROOM O2 PLACED BY PATIENT AT 5 L/M. DENIES NEEDS.
[2017-08-22] VITALS: BP 90/55
--- NOTE | 2017-08-22 | NUR ---
MEDS GIVEN PER MAR.
--- NOTE | 2017-08-22 01:44 | NUR ---
EYES CLOSED RESPIRATIONS WITH EASE AND UNLABORED.
[2017-08-22 04:00] VITALS: BP 104/69
[2017-08-22 05:38] LABS: BASOPHILS 0 % (0-2); EOSINOPHILS 0 % (0-7); HEMATOCRIT 31.9 % (36.0-48.0); HEMOGLOBIN 9.8 g/dL (12-16); IMMATURE GRANULOCYTES 1.2 % (0-5); LYMPHOCYTES 7.1 % (15-50); MCH 34.8 pg (26.0-34.0); MCHC 30.7 g/dL (31.0-37.0); MCV 113.1 fL (80.0-100.0); MEAN PLATELET VOLUME 9.8 fL (7.4-10.4); NEUTROPHILS 86.7 % (40-80); PLATELET COUNT 305 10x3/uL (130-400); RBC 2.82 10x6/uL (4.00-5.40); RDW 18.7 % (11.5-14.5)
[2017-08-22 05:45] LABS: WBC 11.2 10x3/uL (4.8-10.8)
[2017-08-22 06:11] LABS: ALBUMIN 3.8 g/dL (3.4-5.0); ALKALINE PHOSPHATASE 43 U/L (46-116); ALT (SGPT) 23 U/L (10-68); BILIRUBIN - TOTAL 1.23 mg/dL (0.2-1.3); CALC OSMOLALITY 282 mosm/kg (275-300); CARBON DIOXIDE 30.6 mmol/L (21.0-32.0); CHLORIDE - SERUM 102 mmol/L (98-107); CREATININE - SERUM 0.7 mg/dL (0.6-1.3); GLUCOSE 138 mg/dL (74-106); POTASSIUM - SERUM 4.5 mmol/L (3.5-5.1); PROTEIN - SERUM 7.1 g/dL (6.4-8.2); SODIUM 141 mmol/L (136-145); UREA NITROGEN 12 mg/dL (7-18); eGFR NON AFRICAN AMERICAN > 90 mL/min (90-120)
--- NOTE | 2017-08-22 08:00 | NUR ---
ASSESSMENT PER FLOW SHEET.PT WITHOUT DISTRESS. SHE IS GOING TO AMBULATE IN HALLS FOR COFFEE.MONITOR FOR NEEDS
[2017-08-22 08:08] VITALS: BP 108/66
--- NOTE | 2017-08-22 09:00 | NUR ---
WALKING WITH DAUGHTER OUT TO CAR. PT WITHOUT DISTRESS.
--- NOTE | 2017-08-22 10:40 | NUR ---
MEDS ORDERED PER MAR AFTER SHOWER
[2017-08-22 12:26] VITALS: BP 120/72
[2017-08-22 12:36] VITALS: Ht 121.9 cm; Wt 53.6 kg
[2017-08-22 15:58] VITALS: BP 96/55
--- NOTE | 2017-08-22 20:02 | NUR ---
IV DCD WITH CATH TIP INTACT.DISCHARGE INSTRUCTIONS,STATES UNDERSTANDING.LEFT UNIT WITH FAMILY FOR TRANSPORT HOME
[2017-08-23 07:24] LABS: HAPTOGLOBIN <10 mg/dL (34-200)
[2017-08-23] MEDS ORDERED: STERAPRED DS 1210 MG PO (11:06)
[2017-08-25 09:09] LABS: ERYTHROPOIETIN 27.6 mIU/mL (2.6-18.5)
--- NOTE | 2017-08-26 15:53 | EC ---
PATIENT:NARGIS CUELLO DATE OF SERVICE: 08/20/17 SEX: F MEDICAL RECORD: [id number] DATE OF : [birth year] LOCATION:D.MS [facility] AGE OF PATIENT: 47 ADMISSION DATE: 08/20/17 REFERRING PHYSICIAN: INTERPRETING PHYSICIAN: DEWEY KEY MD ECHOCARDIOGRAM REPORT ECHO CHARGES 4 ECHO COMPLETE CLINICAL DIAGNOSIS: SOB/HYPOXEMIA ECHOCARDIOGRAPHIC MEASUREMENTS (adult normal given) AC root (d.<3.7cm) 3.4 cm LV Septum d (<1.2 cm> 1.0 cm Valve Excursion 1.5 cm LV Septum (systole) 1.5 cm Left Atria (s.<4.0cm> 3.2 cm LVPW d(<1.2cm) 1.4 cm RV (d.<2.3cm) 4.0 cm LVPW (sytole) 1.7 cm LV diastole(<5.6CM) 4.7 cm MV E-F(>70mm/sec) cm LV systole 2.9 cm LVOT Diameter 1.9 cm MV exc.(>10mm) 1.2 cm Est.ejection fraction (50-75%) % Pericardial Effusion N DOPPLER: LVIT cm/sec A 85.0 cm/sec E 93.0 cm/sec LA cm/sec RVSP 30 mmHg LVOT 101 cm/sec AOP1/2T m/s Asc. Ao 154 cm/sec RVOT 65 cm/sec RA cm/sec PA 98 cm/sec AV Gradient Peak 9.52 mmHg AV Mean 4.77 mmHg AV Area 2.2 cm MV Gradient Peak 4.59 mmHg MV Mean 2.26 mmHg MV Area cm COMMENTS: Boarding Specialist: Brando WEBER [employer] Agent: 4 Dr. Key TAPE# PACS DATE OF SERVICE: 08/21/2017 PROCEDURE: Transthoracic echocardiogram. FINDINGS: 1. Left ventricle is normal size, normal function, mildly hyperdynamic. The overall ejection fraction is 65%. There is evidence of mild concentric left ventricular hypertrophy with normal inflow characteristics. 2. The right ventricle is normal size, normal function. 3. The right atrium appears to be mildly dilated. ECHOCARDIOGRAM REPORT [id number] NARGIS CUELLO Y 4. The aortic valve appears to be grossly normal. 5. The mitral valve is structurally normal. 6. The tricuspid valve has mild mitral regurgitation. 7. RVSP of 30 mmHg. 8. There is no pericardial effusion. 9. The pulmonic valve is normal. CONCLUSIONS: The patient has evidence of normal to hyperdynamic function with possibly mild hypertrophic left ventricular wall, which is concentric in nature. TRANSINT:[id number] Voice Confirmation ID: [id number] DOCUMENT ID: [id number] 08/26/2017 Edited to correct date of service, dm. DEWEY KEY MD at 1553 CC: [id number] DICTATION DATE: 08/22/17 0753 HEALTH LEAD: 08/22/17 1246 DIS IN 08/22/17 [facility] [address] [place] [address]
--- NOTE | 2017-09-04 14:06 | CN ---
PATIENT NAME:NARGIS CUELLO MEDICAL RECORD: [id number] : 68 LOCATION:[id number] ADMIT DATE: 08/20/17 ACCOUNT: [id number] CONSULTING PHYSICIAN: MANJULA SAMPSON MD REFERRING PHYSICIAN: WARREN BLANCO MD DATE OF CONSULTATION: 08/20/2017 CONSULT REQUESTING PHYSICIAN: Dr. Kelsie Ledesma. REASON FOR CONSULTATION: Acute exacerbation of chronic obstructive pulmonary disease and acute hypoxia. HISTORY OF PRESENT ILLNESS: Ms. Cuello is a 47-year-old female who has a history of COPD. She is sick for the last couple of weeks. She was seen in Dr. Bright's office on Friday. She was given prednisone and steroids. She was seen in Dr. Blanco's office yesterday, her pulse ox was in the 80. She was also getting doxycycline and Rocephin injections, but the patient was not getting any better and directly admitted from his office. She hears herself wheezing. She has shortness of breath with exertion. The cough is not productive with the sputum. There are no night sweats. REVIEW OF SYSTEMS: CONSTITUTIONAL: She has aches and pain. No fever. HEENT: Sinus congestion. RESPIRATORY: As in history of present illness. CARDIOVASCULAR: Negative. GASTROINTESTINAL: No nausea, vomiting. No diarrhea. GENITOURINARY: Negative. Other review of the systems is negative. PAST MEDICAL HISTORY: 1. COPD. 2. Asthma. PAST SURGICAL HISTORY: Hysterectomy. FAMILY HISTORY: Significant for coronary artery disease and lung cancer and asthma. PERSONAL SOCIAL HISTORY: The patient stills continue half pack per day. PHYSICAL EXAMINATION: GENERAL: Now, the patient is lying comfortably. She is not in acute distress. VITAL SIGNS: The blood pressure 112/73, pulse is 80, respiration is 16, temperature 98.8, and SPO2 is 84% on room air. HEENT: Conjunctivae are pink. Sclerae nonicteric. NECK: Neck is supple. No JVD. CHEST: The chest excursion is minimal on both side. Wheeze on forceful expiration. HEART: Rhythm regular, normal sound, no murmur. ABDOMEN: Abdomen is soft. Bowel sounds present. No hepatosplenomegaly. RECTAL: Deferred. EXTREMITIES: No cyanosis, no clubbing, and no pedal edema. SKIN: The skin is warm, normal turgor. CENTRAL NERVOUS SYSTEM: The patient is awake and alert. There are no obvious CONSULT REPORT [id number] NARGIS CUELLO cranial nerve abnormalities. The gait was not tested. LABORATORY DATA AND DIAGNOSTIC STUDIES: Chest radiograph, there is no acute infiltrate. Other laboratory data; CBC: The WBC 15.8, hemoglobin 10.1, hematocrit is 32.9, and the platelet count 293. Chemistry; sodium 142, potassium 4.2, BUN is 12, creatinine 0.6. The D-dimer is pending. ABG: The pH is 7.40, pCO2 45.7, the pO2 is 72, bicarbonate is 28.4, and the O2 saturation is 94%. This was done on the room air. IMPRESSION: 1. Acute hypoxic respiratory failure. 2. Acute exacerbation of chronic obstructive pulmonary disease. 3. Tracheobronchitis, possible pneumonitis. 4. Leukocytosis. 5. Tobacco dependence syndrome. 6. Dyspnea on exertion. 7. Allergic rhinitis. RECOMMENDATIONS: 1. The patient was counseled to quit smoking. 2. Start her on IV Levaquin IV. The patient has failed doxycycline and Rocephin as outpatient. 3. Methylprednisolone IV. 4. Start Brovana and budesonide nebulizer. 5. Discontinue Advair. 6. Albuterol/ipratropium nebulizer. 7. Flonase nasal spray. 8. Check D-dimer. If it is positive, we will proceed with a CTA of the chest. Dr. Ledesma, thank you for involving me in the care of Ms. Cuello. TRANSINT:[id number] Voice Confirmation ID: [id number] DOCUMENT ID: [id number] MANJULA SAMPSON MD at 1406 CC: MIO LEDESMA MD [id number] DICTATION DATE: 08/20/17 170 REPRESENTATIVE PHLEBOTOMY SERVICES: 08/20/17 180 DIS IN 08/22/17 [place] [id number] [place] [address]
== END 2017-08-22 20:03 | disposition home or self-care (01) | DRG 193 ==
LOC: D.MS 10:27
PROVIDERS: Family Medicine; Internal Medicine Hematology & Oncology; ADMIT Family Medicine
DX: J18.9 Pneumonia, unspecified organism (principal); J96.21 Acute and chronic respiratory failure with hypoxia; J44.1 Chronic obstructive pulmonary disease with (acute) exacerbation; F17.203 Nicotine dependence unspecified, with withdrawal; J98.11 Atelectasis; J44.0 Chronic obstructive pulmonary disease with (acute) lower respiratory infection; Z99.81 Dependence on supplemental oxygen; R79.89 Other specified abnormal findings of blood chemistry; D72.829 Elevated white blood cell count, unspecified; D64.9 Anemia, unspecified

== ENCOUNTER 2017-09-06 11:57 | Emergency (ER) | payer BC ==
[2017-08-22 12:36] VITALS: BMI 36.0
[~2017-09-06 11:57] MED LIST changes: +STERAPRED DS 1210 MG PO
== END 2017-09-06 14:40 | disposition home or self-care (01) ==
LOC: D.ER 11:57
DX: J45.901 Unspecified asthma with (acute) exacerbation (principal); J20.9 Acute bronchitis, unspecified; J44.9 Chronic obstructive pulmonary disease, unspecified; F17.200 Nicotine dependence, unspecified, uncomplicated

== ENCOUNTER → 2017-10-21 07:44 | Outpatient (CLI) | payer BC ==
[2017-08-22 12:36] VITALS: BMI 36.0
== END | disposition home or self-care (01) ==
LOC: D.CT 07:44
DX: R91.8 Other nonspecific abnormal finding of lung field (principal); J40 Bronchitis, not specified as acute or chronic

== ENCOUNTER 2017-11-03 07:47 | Outpatient (CLI) | payer BC ==
[~2017-11-03] VITALS: Ht 149.9 cm; Wt 56.8 kg
[2017-11-03 08:12] LABS: BASOPHILS 0.4 % (0-2); EOSINOPHILS 1.3 % (0-7); HEMATOCRIT 41.7 % (36.0-48.0); HEMOGLOBIN 13.6 g/dL (12-16); IMMATURE GRANULOCYTES 0.6 % (0-5); LYMPHOCYTES 47.2 % (15-50); MCH 33.7 pg (26.0-34.0); MCHC 32.6 g/dL (31.0-37.0); MCV 103.5 fL (80.0-100.0); MEAN PLATELET VOLUME 9.3 fL (7.4-10.4); MONOCYTES 10.3 % (2-11); NEUTROPHILS 40.2 % (40-80); PLATELET COUNT 251 10x3/uL (130-400); RBC 4.03 10x6/uL (4.00-5.40); WBC 4.7 10x3/uL (4.8-10.8)
[2017-11-03 08:36] LABS: CALC OSMOLALITY 277 mosm/kg (275-300); CARBON DIOXIDE 25.8 mmol/L (21.0-32.0); CHLORIDE - SERUM 103 mmol/L (98-107); CREATININE - SERUM 0.5 mg/dL (0.6-1.3); GLUCOSE 94 mg/dL (74-106); POTASSIUM - SERUM 4.2 mmol/L (3.5-5.1); SODIUM 140 mmol/L (136-145); UREA NITROGEN 10 mg/dL (7-18); eGFR NON AFRICAN AMERICAN > 90 mL/min (90-120)
[2017-11-03] MEDS ORDERED: PAXIL CR37.5 MG PO (08:38)
[2017-11-03] MEDS ORDERED: SINGULAIR10 MG PO (08:39)
[2017-11-03 08:48] LABS: INR 0.97 (0.85-1.17); PROTIME 12.5 SECONDS (11.6-15.0)
[2017-11-03 08:53] VITALS: BP 110/65; Ht 149.9 cm; Wt 56.8 kg
== END 2017-11-03 16:00 | disposition home or self-care (01) ==
LOC: D.OPS 07:47 → D.CT 10:30 → D.OPS 16:00
PROVIDERS: Specialist
DX: R91.1 Solitary pulmonary nodule (principal); Z01.812 Encounter for preprocedural laboratory examination

== ENCOUNTER 2017-11-20 05:29 | Outpatient (CLI) | payer BC ==
[~2017-11-20] VITALS: Ht 149.9 cm; Wt 56.8 kg
[~2017-11-20 05:29] MED LIST changes: +PAXIL CR37.5 MG PO; +SINGULAIR10 MG PO
[2017-11-20 06:22] LABS: APTT 23.6 SECONDS (22.8-39.4); INR 0.94 (0.85-1.17); PROTIME 12.2 SECONDS (11.6-15.0)
[2017-11-20 06:23] LABS: BASOPHILS 0.5 % (0-2); EOSINOPHILS 1.5 % (0-7); HEMATOCRIT 38.9 % (36.0-48.0); HEMOGLOBIN 12.4 g/dL (12-16); IMMATURE GRANULOCYTES 0.6 % (0-5); LYMPHOCYTES 24.6 % (15-50); MCH 33.2 pg (26.0-34.0); MCHC 31.9 g/dL (31.0-37.0); MEAN PLATELET VOLUME 9.5 fL (7.4-10.4); MONOCYTES 8.6 % (2-11); NEUTROPHILS 64.2 % (40-80); PLATELET COUNT 246 10x3/uL (130-400); RBC 3.74 10x6/uL (4.00-5.40); RDW 16.1 % (11.5-14.5); WBC 6.2 10x3/uL (4.8-10.8)
[2017-11-20 06:29] VITALS: BP 100/64; Ht 149.9 cm; Wt 56.8 kg
[2017-11-20 06:35] LABS: CALC OSMOLALITY 276 mosm/kg (275-300); CARBON DIOXIDE 28.2 mmol/L (21.0-32.0); CHLORIDE - SERUM 103 mmol/L (98-107); CREATININE - SERUM 0.7 mg/dL (0.6-1.3); GLUCOSE 86 mg/dL (74-106); POTASSIUM - SERUM 4.4 mmol/L (3.5-5.1); SODIUM 139 mmol/L (136-145); UREA NITROGEN 13 mg/dL (7-18); eGFR NON AFRICAN AMERICAN > 90 mL/min (90-120)
== END 2017-11-20 14:28 | disposition home or self-care (01) ==
LOC: D.OPS 05:29 → D.CT 08:00 → D.OPS 08:00
PROVIDERS: Radiology Vascular & Interventional Radiology
DX: R91.8 Other nonspecific abnormal finding of lung field (principal)

== ENCOUNTER → 2017-12-29 12:13 | Outpatient (CLI) | payer BC ==
[~2017-12-29 12:13] MED LIST changes: +ASPIRIN325 MG PO; +BENZONATATE200 MG PO; +CHANTIX0.5 MG PO; +LEVAQUIN500 MG PO; +MUCINEX600 MG PO
[2017-12-30 11:17] LABS: HEPATITIS C ANTIBODY <0.1 (0.0-0.9)
== END | disposition home or self-care (01) ==
LOC: D.RT 12:13
PROVIDERS: Internal Medicine Cardiovascular Disease
DX: C34.31 Malignant neoplasm of lower lobe, right bronchus or lung (principal); R09.89 Other specified symptoms and signs involving the circulatory and respiratory systems

== ENCOUNTER 2018-01-06 05:12 | Inpatient (IN) | payer BC ==
[2018-01-05 10:07] LABS: APPEARANCE CLEAR (CLEAR); BILIRUBIN NEGATIVE (NEGATIVE); COLOR YELLOW (YELLOW); GLUCOSE NEGATIVE (NEGATIVE); KETONE NEGATIVE (NEGATIVE); NITRITE NEGATIVE (NEGATIVE); PROTEIN NEGATIVE (NEGATIVE); SPECIFIC GRAVITY 1.005 (1.005-1.020); UROBILINOGEN NORMAL (NORMAL)
[2018-01-05 10:07] LABS: HEMATOCRIT 43.2 % (36.0-48.0); HEMOGLOBIN 14.1 g/dL (12-16); MCHC 32.6 g/dL (31.0-37.0); MCV 101.2 fL (80.0-100.0); MEAN PLATELET VOLUME 9.1 fL (7.4-10.4); RBC 4.27 10x6/uL (4.00-5.40); RDW 13.7 % (11.5-14.5); WBC 7.2 10x3/uL (4.8-10.8)
[2018-01-05 10:16] LABS: INR 0.93 (0.85-1.17); PROTIME 12.1 SECONDS (11.6-15.0)
[2018-01-05 10:17] LABS: APTT 23.7 SECONDS (22.8-39.4)
[2018-01-05 10:22] LABS: ALBUMIN 3.8 g/dL (3.4-5.0); ALKALINE PHOSPHATASE 58 U/L (46-116); ALT (SGPT) 31 U/L (10-68); CALC OSMOLALITY 281 mosm/kg (275-300); CALCIUM 9.1 mg/dL (8.5-10.1); CARBON DIOXIDE 27.9 mmol/L (21.0-32.0); CHLORIDE - SERUM 103 mmol/L (98-107); CREATININE - SERUM 0.7 mg/dL (0.6-1.3); GLUCOSE 92 mg/dL (74-106); PROTEIN - SERUM 7.7 g/dL (6.4-8.2); SODIUM 141 mmol/L (136-145); UREA NITROGEN 16 mg/dL (7-18); eGFR NON AFRICAN AMERICAN > 90 mL/min (90-120)
[~2018-01-06] VITALS: Ht 149.9 cm; Wt 61.1 kg
[2018-01-06] VITALS (56 sets, daily range): BP systolic 85–138; BP diastolic 44–69; BMI 27.5; BMI 29.2
--- NOTE | ~2018-01-06 | CN ---
PATIENT NAME:NARGIS CUELLO MEDICAL RECORD: [id number] : 68 LOCATION:[facility] ADMIT DATE: 01/06/18 ACCOUNT: [id number] CONSULTING PHYSICIAN: MANJULA SAMPSON MD REFERRING PHYSICIAN: ALEKSANDAR GIBSON MD DATE OF CONSULTATION: 01/10/2018 CONSULT REQUESTING PHYSICIAN: Dr. Aleksandar Gibson. REASON FOR CONSULTATION: Pneumonia. HISTORY OF PRESENT ILLNESS: Ms. 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 The patient has underwent lobectomy on Friday and now she has some low-grade fever and also she has shortness of breath and the chest radiograph is abnormal. She also has chest pain after this surgery at the incision site. Also, complaining of insomnia since she is in the hospital. REVIEW OF SYSTEMS: Mainly in the history of present illness. PAST MEDICAL HISTORY: 1. COPD. 2. Asthma. 3. Obstructive sleep apnea. 4. Tobacco dependence syndrome. PAST SURGICAL HISTORY: 1. She is now status post right lower lobe lobectomy for non-small cell carcinoma of the lung. 2. Hysterectomy. PERSONAL SOCIAL HISTORY: She still continues to smoke. She is a nondrinker. FAMILY HISTORY: Noncontributory. PHYSICAL EXAMINATION: GENERAL: Now, the patient is sitting in chair. She is not in acute distress. VITAL SIGNS: The blood pressure is 105/57, pulse is 86, respirations 16, temperature 98.3, and SPO2 is 96% on 4 liters nasal cannula. HEENT: Conjunctivae are pink. Sclerae are not icteric. NECK: Neck is supple. No JVD. CHEST: There are bilateral crackles, wheeze on forceful expiration. HEART: Rhythm regular, normal sound, no murmur. ABDOMEN: Abdomen is soft. Bowel sounds present. No hepatosplenomegaly. RECTAL: Deferred. EXTREMITIES: No cyanosis, clubbing. No pedal edema. SKIN: The skin is warm, normal turgor. CENTRAL NERVOUS SYSTEM: The patient is awake and alert. There are no obvious cranial nerve abnormalities. The gait was not tested. LABORATORY DATA AND DIAGNOSTIC STUDIES: CBC: WBC 8.9, hemoglobin 10.8, hematocrit 34, and the platelet count is 182. Chemistry: Sodium 139, potassium 3.6, BUN is 6, creatinine 0.5. ABG on 01/09/2018; the pH is 7.40, pCO2 is 47.4, pO2 of 61, and bicarbonate is 29.6. CONSULT REPORT [id number] NARGIS CUELLO Chest radiograph; improving aeration of the left lung. There is patchy airspace opacity in the right lung base as well as on the left. IMPRESSION: 1. Acute hypoxic respiratory failure. A. Pneumonia. 2. Acute exacerbation of chronic obstructive pulmonary disease. B. Status post right lower lobe lobectomy. 3. Non-small cell carcinoma of the right lower lobe. 4. Obstructive sleep apnea. 5. Gastroesophageal reflux disease. 6. Secondary pulmonary hypertension. 7. Insomnia. RECOMMENDATION: 1. Start albuterol/ipratropium nebulizer. Start Brovana and budesonide nebulizer. 2. Start on vancomycin, cefepime, and Levaquin to cover for hospital-acquired pneumonia, possible MRSA and Gram-negative rods. 3. Benadryl at night. 4. Follow up labs and chest radiograph. 5. Continue supplemental oxygen. Dr. Gibson, thank you for involving me in the care of Ms. Cuello. TRANSINT:[id number] Voice Confirmation ID: [id number] DOCUMENT ID: [id number] MANJULA SAMPSON MD at 1208 CC: ALEKSANDAR GIBSON [id number] DICTATION DATE: 01/10/18 1315 PROPERTY INSPECTOR: 01/10/18 1550 DIS IN 01/14/18 [place] [id number] [place] [id number]
--- NOTE | ~2018-01-06 | OP ---
PATIENT NAME: NARGIS CUELLO MEDICAL RECORD: [id number] :68 LOCATION:[facility] ADMISSION DATE:01/06/18 SURGEON: ALEKSANDAR PARK MD DATE OF OPERATION: 01/06/2018 SURGEON: Aleksandar Park MD ANESTHESIA: General endotracheal, Dr. Yadav. OPERATIONS PERFORMED: 1. Right lower lobectomy. 2. Right mediastinal lymphadenectomy. 3. Flexible fiberoptic bronchoscopy. PREOPERATIVE DIAGNOSIS: Non-small cell carcinoma, right lower lobe. POSTOPERATIVE DIAGNOSIS: Non-small cell carcinoma, right lower lobe. INDICATION FOR OPERATION: Non-small cell carcinoma, right lower lobe. FINDINGS OF THE OPERATION: Non-small cell carcinoma, right lower lobe. The lymph nodes were harvested from level 10. There were no nodes at level 8 and 9. There was one lymph node at level 7 that was taken. There were none seen in level 4. ESTIMATED BLOOD LOSS: Less than 100 mL. After informed consent, adequate preoperative medication, and evaluation, the patient was brought to the operating room and placed on the table in supine position. After induction of general endotracheal anesthesia and application of appropriate monitoring devices, the patient underwent flexible fiberoptic bronchoscopy and placement of a double-lumen tube. The patient was then turned in a left lateral decubitus position, protecting the pressure points and neurological structures. The right chest was then prepped and draped in sterile field utilizing Betadine scrub, alcohol, and Betadine solution. Betadine-impregnated drape was also used. An incision was made over the fifth interspace. Dissection was carried down to the fascia. Hemostasis was maintained with electrocautery. The fifth interspace was identified. The space was opened and the lung collapsed. The chest and mediastinum were examined. There were no other abnormalities noted. Traction was then placed on the inferior pulmonary ligament and the ligament was dissected to the inferior pulmonary vein. There were no lymph nodes at level 8 and level 9. The inferior pulmonary vein was then dissected free of surrounding structures. Attention was then turned towards the hilum. The hilum was opened and a large peribronchial lymph node was removed from middle lobe and pulmonary artery. This afforded access to the pulmonary artery proximally and distally. The vessels to the lower lobe were then surrounded with a vessel loop. Utilizing an Endo-PHILIP stapler, the pulmonary artery to the lower lobe was divided. Attention was then turned towards the pulmonary vein, which was divided with an Endo-PHILIP stapler. Dissection was then carried around the lower lobe bronchus. The middle lobe bronchus was identified. Utilizing a TA-34.8 stapler, the bronchus was divided and the bronchial stump tested and was secure. The lung was examined and sent to pathology. Pathology demonstrated a right lower lobe non-small cell carcinoma. Attention was then turned towards the mediastinum. The level 7 lymph nodes were dissected free of surrounding structures and sent to pathology OPERATIVE REPORT [id number] NARGIS CUELLO for permanent section. Level 10 nodes were then taken separately in addition to the lower lobe and was sent to pathology for permanent section. Level 4 was examined. The patient has an azygos lobe. There were no lymph nodes seen for biopsy in the level 4 area or level 3. The chest was then irrigated with copious amounts of antibiotic solution and normal saline. There was no bleeding. Two #32 chest tubes were placed, one anteriorly-superiorly and one inferiorly-posteriorly. The chest was again irrigated. Instrument count and sponge count were correct times 2. Chest was closed in layers utilizing #2 Vicryl pericostal sutures, #1 Vicryl on the muscle, 2-0 Vicryl on the subcutaneous tissue, and skin approximated with 3-0 subcuticular Vicryl. Sterile dressings were applied. The patient tolerated the procedure well. She was turned in supine position and underwent flexible fiberoptic bronchoscopy that demonstrated good closure of the lower lobe bronchial stump. No blood or mucus obstructing the other bronchi, right or left side. The patient was then awakened and transferred to the [facility] ICU in satisfactory condition. TRANSINT:[id number] Voice Confirmation ID: [id number] DOCUMENT ID: [id number] ALEKSANDAR PARK MD at 1318 CC: [id number] DICTATION DATE: 01/06/18 1036 REGULATOR PIN INSERTER: 01/06/18 1351 ADM IN [place] [id number] [place] [id number]
--- NOTE | ~2018-01-06 | HP ---
PATIENT: NARGIS CUELLO MEDICAL RECORD: [id number] ACCOUNT: [id number] LOCATION:[facility]08 : [birth year] ADMISSION DATE: 01/06/18 HISTORY AND PHYSICAL EXAMINATION NARGIS Alvarez (47yo, F) ID# [id number]. Date/Time01/02/2018 10:[id number] Dept.NPP_[facility] ClinicProviderEDASTON GIBSON MDInsuranceMed Primary: [place] Insurance # : [id number] Policy/Group # : [id number] Referring Provider Name : WARREN BLANCO Employer Name : UNEMPLOYED Prescription: CMX - Member is eligible. Chief Complaint Followup: Malignant tumor of lung RLL NSCLC-TEST RESULTS CAROTID DOPPLER/PFT/6 MIN. WALK Patient's Care Team Referring Provider (): WARREN BLANCO: [facility], [address] [place] [phone], , Primary Care Provider: WARREN BLANCO DO: [address] [facility] [place] [address], , Art Educator: BLAKE GUNTER MD Patient's Pharmacies [facility] [address] [place] [phone], , Vitals BP:112/72 sitting R arm 01/02/2018 10:01 amHR:78/REG 01/02/2018 10:02 amHt:4 ft 10 in 01/02/2018 09:59 amWt:130 lbs 01/02/2018 10:02 amBMI:27.2 01/02/2018 10:02 amAllergies Reviewed Allergies WOOLNKDAMedications Reviewed Medications acetaminophen 300 mg-codeine 30 mg ysihzb37/05/17 filledCaremarkalbuterol sulfate 2.5 mg/3 mL (0.083 %) solution for lfxxuuweryfy88/30/17 filledCaremarkARIPiprazole 15 mg tablet Take 1 tablet(s) every day by oral route.12/01/17 filledCaremarkbenzonatate 200 mg bionhhp80/26/18 filledCaremarkbuPROPion HCl 75 mg /10/17 filledCaremarkbuPROPion HCl SR 150 mg tablet,12 hr sustained-kyoager50/20/17 filledCaremarkChantix Starting Month Box 0.5 mg (11)-1 mg (42) tablets in dose pack09/25/17 filledCaremarkclarithromycin 500 mg /30/17 filledCaremarkdiazePAM 5 mg grwpos57/26/18 filledCaremarkdoxycycline hyclate 100 mg tfaokbs28/05/17 filledCaremarkEstrace 2 mg tablet Take 1 tablet(s) every day by oral route.04/14/17 enteredCharity McAllisterestradiol 0.1 mg/24 hr weekly transdermal patch06/17/17 filledCaremarkfluticasone 50 mcg/actuation nasal spray,suspension [place] 1 spray(s) every day by intranasal route.04/15/17 filledCaremarkHYDROcodone 10 mg-acetaminophen 325 mg /27/18 filledCaremarkHYDROcodone 7.5 mg-acetaminophen 325 mg igzmxa57/12/17 filledCaremarkibuprofen 600 mg /06/17 filledCaremarklevoFLOXacin 500 mg ixwffl55/13/18 filledCaremarklevoFLOXacin 750 mg uclpgq19/04/18 filledCaremarkLORazepam 1 mg zydqkf84/16/18 filledCaremarkmontelukast 10 mg tablet TAKE 1 TABLET BY MOUTH DAILY12/18/17 filledCaremarkNexIUM 20 mg capsule,delayed release Take 1 capsule(s) every day by oral route.04/14/17 enteredCharity HISTORY AND PHYSICAL [id number] NARGIS CUELLOllnobleoseltamivir 75 mg cuzxaer73/05/17 filledCaremarkoxygen 5Lnc pRN SOB12/23/17 enteredKathy WilsonPARoxetine ER 37.5 mg tablet,extended release 24 hr Take 1 tablet(s) every day by oral route.12/18/17 filledCaremarkpredniSONE 10 mg tablet Take 1 tablet(s) every day by oral route as directed for 12 days. Note: 40mg x 3 days; 30mg x 3 days; 20mg x 3 days; 10mg x 3 days04/14/17 Vishnu GarsiaredniSONE 10 mg tablets in a dose pack08/23/17 filledCaremarkpredniSONE 20 mg tablet Take 2 tablet(s) by oral route for 5 days.09/06/17 filledCaremarkProAir HFA 90 mcg/actuation aerosol inhaler Inhale 2 PUFF EVERY 4 HOURS as needed by inhalation route.04/15/17 filledCaremarkpromethazine 6.25 mg-codeine 10 mg/5 mL syrup Take 5 mL every 6 hours by oral route.05/14/17 filledCaremarkpromethazine-DM 6.25 mg-15 mg/5 mL syrup11/17/17 filledCaremarkpropranolol 10 mg tablet Take 2 tablet(s) 3 times a day by oral route.04/14/17 enteredCharity McAllistersulfamethoxazole 800 mg-trimethoprim 160 mg ryqqny57/12/18 filledCaremarkTessalon Perles 100 mg capsule Take 2 capsule(s) 3 times a day by oral route for 30 days.05/13/17 Katya Garsiaussin AC 10 mg-100 mg/5 mL oral /26/18 filledCaremarkProblems Reviewed Problems Carcinoma of lower lobe, bronchus or lung - Onset: 12/23/2017, Right Malignant tumor of lung - Onset: 12/23/2017 Leukocytosis Chronic obstructive lung disease Asthma Anemia Family History Reviewed Family History Mother- Alzheimer's disease - history of COPDFather- Malignant neoplastic disease - bronchogenic carcinomaUnspecified Relation- Family history of coronary arteriosclerosis - AsthmaSocial History Reviewed Social History Cardiology, General, and Meaningful Use - Optional Family history of heart disease?: Y Smoking Status: Current every day smoker Smoker (1/2 PPD) (Notes: smoked for 40 years up to one pack per day) High Cholesterol: N High blood pressure: N Diabetes: N Alcohol intake: Occasional (Notes: 2 beers a day) Diet: Regular Marital status: Caffeine intake: Moderate Illicit drugs: (Notes: quit in 2005 - IV methamphetamines, THC, among other drugs) Deaf or serious difficul ty hearing: N Blind or serious difficulty seeing: N Difficulty concentrating, remembering or making decisions: N Difficulty walking or climbing stairs: N Difficulty dressing or bathing: N Difficulty doing errands alone: N HISTORY AND PHYSICAL [id number] NARGIS CUELLO Y Surgical History Reviewed Surgical History Hysterectomy/revise vagina - 09/08/2016 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) Past Medical History Reviewed Past Medical History Asthma: Y COPD: Y Cancer: Y GERD: Y High Blood Pressure: Y Shortness of Breath: Y Notes: anxiety Documents for Discussion Discussed the following documents: HEPATITIS (A+B+C) PANEL, SERUM - 12/30/17 Results: - SERUM OR PLASMA HEPATITIS A VIRUS IGM ANTIBODY DETECTION BY IMMUNOASSAY: NEGATIVE NEGATIVE - SERUM OR PLASMA HEPATITIS B VIRUS CORE IGM ANTIBODY DETECTION BY IMMUNOA: NEGATIVE NEGATIVE - SERUM OR PLASMA HEPATITIS B VIRUS SURFACE ANTIGEN DETECTION BY IMMUNOASSA: NEGATIVE NEGATIVE - HCV AB S/CO SERPL EIA: < 0.1 6 MINUTE WALK TEST - 12/29/17 Notes - satisfactory 6 minute walk PFT, COMPLETE - 12/29/17 Notes - satisfactory pulmonary function studies for right lower lobe resection US, DUPLEX, CAROTID ARTERY - 12/29/17 UNKNOWN - 12/29/17 Results: - ADMINISTRATION OF ANIYA'S TEST: POSITIVE POSITIVE - ARTERIAL BLOOD BASE EXCESS BY CALCULATION: 1.8 NORMAL - OXYGEN DELIVERY DEVICE: ROOM AIR - FIO2: 21 - ARTERIAL BLOOD GLUCOSE MEASUREMENT (MASS/VOLUME): 96 NORMAL - ARTERIAL BLOOD BICARBONATE MEASUREMENT (MOLES/VOLUME): 26.3 NORMAL - HEMATOCRIT OF ARTERIAL BLOOD: 43 NORMAL - HEMOGLOBIN ARTERIAL: 14.6 NORMAL - ARTERIAL BLOOD IONIZED CALCIUM MEASUREMENT (MASS/VOLUME): 1.12 LOW - POTASSIUM BLOOD ARTERIAL: 3.7 NORMAL - ARTERIAL BLOOD SODIUM MEASUREMENT: 139 NORMAL - O2 SATURATION ARTERIAL BLOOD: 95.2 NORMAL - BLOOD PCO2: 39.7 NORMAL - ARTERIAL BLOOD GAS PH: 7.429 NORMAL - BLOOD PO2: 74 LOW - SITE: R RADIAL - TCO2: 27.5 NORMAL Screening None recorded. HPI HISTORY AND PHYSICAL [id number] NARGIS CUELLO Y Dyspnea Reported by patient. Quality: can't catch breath; wears O2 at %LNC a couple times a week to get over shortness of breath Severity: severe Duration: sensation/episode lasts 10-15 minutes; for 6 months Onset/Timing: daily; weekly Context: with activity; after respiratory illness; history of lung disease Alleviating Factors: rest; relieved with oxygen Aggravating Factors: activity Associated Symptoms: no chest pain; no palpitations; no orthopnea; no PND; no fever; no chills; no wheezing; no dietary indiscretion; no sputum production; no hemoptysis; no weight gain; no dyspepsia carcinoma right lower lobe ROS Patient reports no fever, no night sweats, no significant weight gain, and no exercise intolerance; now gaining wt again recently.. She reports nose/sinus problems but reports no frequent noseb mirza. She reports shortness of breath when walking but reports no chest pain, no arm pain on exertion, no shortness of breath when lying down, no palpitations, and no known heart murmur. She reports cough and sleep apnea but reports no wheezing, no shortness of breath, and no coughing up blood. She reports no loss of consciousness, no weakness, no numbness, no seizures, no dizziness, and no headaches; HUERTAS. She reports depression and sleep disturbances but reports feeling safe in relationship and no alcohol abuse. She reports fatigue. She reports no dry eyes, no irritation, and no vision change. She reports no difficulty hearing and no ear pain. She reports no sore throat, no bleeding gums, no snoring, no dry mouth, no mouth ulcers, no oral abnormalities, and no teeth problems. She reports no jugular vein distension and no swollen glands. She reports no abdominal pain, no vomiting, normal appetite, no diarrhea, not vomiting blood, no nausea, and no constipation. She reports no incontinence, no difficulty urin a ting, no hematuria, and no increased frequency. She reports no muscle aches, no muscle weakness, no arthralgias/joint pain, no back pain, and no swelling in the extremities. She reports no abnormal mole, no jaundice, and no rashes. She reports no swollen glands and no bruising. She reports no runny nose, no sinus pressure, no itching, no hives, and no frequent sneezing. ROS as noted in the HPI Physical Exam Patient is a 47-year-old female. Constitutional: General Appearance: well nourished and well developed. Level of Distress: no acute distress. Ambulation: ambulating normally. Ears: Cerumen negative. Canal: no erythema or swelling. Tympanic Membrane: no bulging or fluid and perforated. Nasal: Nasal Mucosa: edematous and boggy and no discharge. Septum: not markedly deformed. Oropharynx: Lips, Teeth, and Gums normal dentition and lips. Oral Mucosa no ulcer, mass, inflammation, swelling, or leukoplakia and moist. Palate: normal hard palate and soft palate. Tongue: no erythema, lesions, enlargement, or swelling. Tonsils: no enlargement or lesions. Posterior Pharynx no enlargement, erythema, exudate, ulcers, mass, or white patches and cobblestoning. Neck: Neck: supple, trachea midline, no masses, and Full ROM. Thyroid: no HISTORY AND PHYSICAL [id number] CUATE,NARGIS Y enlargement or nodules and non-tender. Jugular Veins: no jugular venous distention or robles a waves present and normal jugular venous pressure; no carotid bruits. Lungs: Respiratory effort: unlabored. Inspection: normal curve an d chest wall expansion; no deformity, tenderness, or swelling; and tactile fremitus present and equal on both sides. Auscultation: no wheezing, rales/crackles, or rhonchi and breath sounds normal. Percussion: no dullness, flatness, or hyperresonance. Cardiovascular: Precordial Exam: non displaced focal PMI. Heart Rate And Rhythm: normal heart rate and rhythm. Heart Sounds: no gallop, click, physiologically split S2, or pericardial friction rub and normal s1. Systolic Murmur: no systolic murmurs. Diastolic Murmur: no diastolic murmurs. Observation/Palpation of peripheral vascular system: no cyanosis or varicosity changes and normal dorsalis pedis and posterior tibialis. Abdomen: Inspection and Palpation: no tenderness or masses and soft and non-distended. L iver: non-tender and no hepatomegaly. Spleen: non-tender and no splenomegaly. Bowel Sounds: normal and no abdominal bruits. Lymphatic: no cervical lymph enlargement, axillary LAD, inguinal LAD, femoral LAD, supraclavicular LAD, or popliteal LAD. Musculoskeletal:: Motor Strength and Tone: normal bulk, tone, and motor strength. Gait and Station: normal gait, station, and tandem gait. Joints, Bones, and Muscles: no contractures, malalignment, tenderness, scoliosis, kyphosis, or bony abnormalities and normal m ovement of all extremities. Extremities: Inspection/Palpation of digits and nails: no clubbing, cyanosis, petechiae, ischemia, edema, or nodular lesions. Skin: Inspection and palpation: no rash, lesions, jaundice, ulcer, erythema, or induration and normal turgor. Neurologic: Mental Status/Orientation: oriented to person, place, problem/situation, and time. Mood/Affect: normal mood and affect. Sensation sensation normal. Cranial Nerves cranial nerves II - XII intact. Deep Tendon Reflexes upper extremities positive and lower extremities positive. 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 Malignant tumor of lung C34.90: Malignant neoplasm of unspecified part of unspecified bronchus or lung Discussion Notes 6 minute walk test and pulmonary function studies much improved from last summer She is a candidate for pulmonary resection I have discussed her disease process with her and her mother in detail as well as the alternative methods of treatment we discussed right pulmonary resection including the expected benefits and risks which include bleeding, infection, stroke, , and the imponderables. She understands all of the above and wishes to proceed with planned surgery. [facility] right pulmonary resection next week HISTORY AND PHYSICAL [id number] NARGIS CUELLO EDWARD MD at 1318 CC: [id number] DICTATION DATE: 01/02/18 1010 STAFF TRAINER: ERLIN 01/05/18 1603 ADM IN [facility] [address] [id number]
[~2018-01-06 05:12] MED LIST changes: -ASPIRIN325 MG PO; -BENZONATATE200 MG PO; -CHANTIX0.5 MG PO; -LEVAQUIN500 MG PO; -MUCINEX600 MG PO
[2018-01-06] MEDS ORDERED: CHANTIX0.5 MG PO (05:54)
[2018-01-06] MEDS ORDERED: BENZONATATE200 MG PO (05:54)
[2018-01-07] VITALS (85 sets, daily range): BP systolic 90–130; BP diastolic 31–70; BMI 29.1
[2018-01-07 06:49] LABS: ALKALINE PHOSPHATASE 39 U/L (46-116); ALT (SGPT) 27 U/L (10-68); BILIRUBIN - TOTAL 0.18 mg/dL (0.2-1.3); CALCIUM 8.4 mg/dL (8.5-10.1); CARBON DIOXIDE 26.2 mmol/L (21.0-32.0); CHLORIDE - SERUM 107 mmol/L (98-107); CREATININE - SERUM 0.6 mg/dL (0.6-1.3); GLUCOSE 128 mg/dL (74-106); POTASSIUM - SERUM 3.7 mmol/L (3.5-5.1); PROTEIN - SERUM 6.2 g/dL (6.4-8.2); SODIUM 143 mmol/L (136-145); eGFR NON AFRICAN AMERICAN > 90 mL/min (90-120)
[2018-01-07 06:51] LABS: ALBUMIN 2.7 g/dL (3.4-5.0); CALC OSMOLALITY 284 mosm/kg (275-300); UREA NITROGEN 8 mg/dL (7-18)
[2018-01-07 09:04] LABS: HEMATOCRIT 37.4 % (36.0-48.0); HEMOGLOBIN 11.8 g/dL (12-16); MCH 32.5 pg (26.0-34.0); MCHC 31.6 g/dL (31.0-37.0); MEAN PLATELET VOLUME 9.8 fL (7.4-10.4); RBC 3.63 10x6/uL (4.00-5.40); RDW 13.8 % (11.5-14.5); WBC 14.5 10x3/uL (4.8-10.8)
[2018-01-08] VITALS (31 sets, daily range): BP systolic 92–135; BP diastolic 42–77; Ht 149.9 cm; Wt 61.1 kg
[2018-01-08 06:56] LABS: ALBUMIN 2.5 g/dL (3.4-5.0); ALKALINE PHOSPHATASE 53 U/L (46-116); ALT (SGPT) 29 U/L (10-68); CALC OSMOLALITY 281 mosm/kg (275-300); CALCIUM 8.5 mg/dL (8.5-10.1); CARBON DIOXIDE 26.3 mmol/L (21.0-32.0); CHLORIDE - SERUM 105 mmol/L (98-107); CREATININE - SERUM 0.7 mg/dL (0.6-1.3); PROTEIN - SERUM 6.6 g/dL (6.4-8.2); SODIUM 140 mmol/L (136-145); UREA NITROGEN 8 mg/dL (7-18); eGFR NON AFRICAN AMERICAN > 90 mL/min (90-120)
[2018-01-08 06:57] LABS: GLUCOSE 188 mg/dL (74-106)
[2018-01-08 07:30] LABS: HEMATOCRIT 37.5 % (36.0-48.0); HEMOGLOBIN 11.9 g/dL (12-16); MCH 32.2 pg (26.0-34.0); MCHC 31.7 g/dL (31.0-37.0); MCV 101.6 fL (80.0-100.0); MEAN PLATELET VOLUME 9.4 fL (7.4-10.4); RBC 3.69 10x6/uL (4.00-5.40); RDW 13.2 % (11.5-14.5); WBC 17.4 10x3/uL (4.8-10.8)
[2018-01-09] VITALS (24 sets, daily range): BP systolic 92–138; BP diastolic 51–73
[2018-01-09 05:48] LABS: HEMATOCRIT 34.7 % (36.0-48.0); HEMOGLOBIN 11.1 g/dL (12-16); MCH 32.3 pg (26.0-34.0); MCV 100.9 fL (80.0-100.0); RBC 3.44 10x6/uL (4.00-5.40); RDW 13.4 % (11.5-14.5)
[2018-01-09 05:50] LABS: WBC 12.2 10x3/uL (4.8-10.8)
[2018-01-09 06:10] LABS: ALBUMIN 2.1 g/dL (3.4-5.0); ALKALINE PHOSPHATASE 61 U/L (46-116); ALT (SGPT) 33 U/L (10-68); CARBON DIOXIDE 29.5 mmol/L (21.0-32.0); CHLORIDE - SERUM 104 mmol/L (98-107); CREATININE - SERUM 0.6 mg/dL (0.6-1.3); POTASSIUM - SERUM 3.7 mmol/L (3.5-5.1); PROTEIN - SERUM 6.1 g/dL (6.4-8.2); SODIUM 141 mmol/L (136-145); UREA NITROGEN 7 mg/dL (7-18); eGFR NON AFRICAN AMERICAN > 90 mL/min (90-120)
[2018-01-09 06:17] LABS: CALC OSMOLALITY 278 mosm/kg (275-300); GLUCOSE 97 mg/dL (74-106)
[2018-01-10] VITALS (24 sets, daily range): BP systolic 92–118; BP diastolic 54–68
[2018-01-10 05:37] LABS: HEMOGLOBIN 10.8 g/dL (12-16); MCH 31.4 pg (26.0-34.0); MCHC 31.8 g/dL (31.0-37.0); RBC 3.44 10x6/uL (4.00-5.40); RDW 13.5 % (11.5-14.5)
[2018-01-10 05:39] LABS: MCV 98.8 fL (80.0-100.0); WBC 8.9 10x3/uL (4.8-10.8)
[2018-01-10 06:04] LABS: ALKALINE PHOSPHATASE 73 U/L (46-116); ALT (SGPT) 38 U/L (10-68); CALC OSMOLALITY 275 mosm/kg (275-300); CALCIUM 8.4 mg/dL (8.5-10.1); CHLORIDE - SERUM 102 mmol/L (98-107); CREATININE - SERUM 0.5 mg/dL (0.6-1.3); GLUCOSE 93 mg/dL (74-106); POTASSIUM - SERUM 3.6 mmol/L (3.5-5.1); PROTEIN - SERUM 6.4 g/dL (6.4-8.2); SODIUM 139 mmol/L (136-145); UREA NITROGEN 6 mg/dL (7-18); eGFR NON AFRICAN AMERICAN > 90 mL/min (90-120)
[2018-01-11] VITALS (25 sets, daily range): BP systolic 101–118; BP diastolic 48–85
[2018-01-11 05:35] LABS: BASOPHILS 0.1 % (0-2); EOSINOPHILS 1.8 % (0-7); HEMATOCRIT 33.2 % (36.0-48.0); HEMOGLOBIN 10.7 g/dL (12-16); IMMATURE GRANULOCYTES 0.2 % (0-5); LYMPHOCYTES 10.1 % (15-50); MCH 31.8 pg (26.0-34.0); MCHC 32.2 g/dL (31.0-37.0); MCV 98.5 fL (80.0-100.0); MEAN PLATELET VOLUME 8.8 fL (7.4-10.4); MONOCYTES 7.3 % (2-11); NEUTROPHILS 80.5 % (40-80); PLATELET COUNT 201 10x3/uL (130-400); RBC 3.37 10x6/uL (4.00-5.40); RDW 13.5 % (11.5-14.5); WBC 8.9 10x3/uL (4.8-10.8)
[2018-01-11 05:54] LABS: CALC OSMOLALITY 271 mosm/kg (275-300); CALCIUM 8.5 mg/dL (8.5-10.1); CHLORIDE - SERUM 100 mmol/L (98-107); CREATININE - SERUM 0.6 mg/dL (0.6-1.3); GLUCOSE 91 mg/dL (74-106); POTASSIUM - SERUM 3.5 mmol/L (3.5-5.1); SODIUM 137 mmol/L (136-145); eGFR NON AFRICAN AMERICAN > 90 mL/min (90-120)
[2018-01-11 06:00] LABS: UREA NITROGEN 8 mg/dL (7-18)
[2018-01-12] VITALS (26 sets, daily range): BP systolic 95–117; BP diastolic 55–68
[2018-01-12 06:03] LABS: BASOPHILS 0.3 % (0-2); EOSINOPHILS 2.1 % (0-7); HEMATOCRIT 34.1 % (36.0-48.0); HEMOGLOBIN 11.1 g/dL (12-16); IMMATURE GRANULOCYTES 0.5 % (0-5); LYMPHOCYTES 17.6 % (15-50); MCH 31.8 pg (26.0-34.0); MCHC 32.6 g/dL (31.0-37.0); MCV 97.7 fL (80.0-100.0); MEAN PLATELET VOLUME 9.2 fL (7.4-10.4); MONOCYTES 8.7 % (2-11); NEUTROPHILS 70.8 % (40-80); RBC 3.49 10x6/uL (4.00-5.40); RDW 13.6 % (11.5-14.5); WBC 6.7 10x3/uL (4.8-10.8)
[2018-01-12 06:08] LABS: PLATELET COUNT 273 10x3/uL (130-400)
[2018-01-12 06:27] LABS: CALC OSMOLALITY 278 mosm/kg (275-300); CALCIUM 8.8 mg/dL (8.5-10.1); CARBON DIOXIDE 28.7 mmol/L (21.0-32.0); CHLORIDE - SERUM 103 mmol/L (98-107); CREATININE - SERUM 0.5 mg/dL (0.6-1.3); GLUCOSE 105 mg/dL (74-106); POTASSIUM - SERUM 3.6 mmol/L (3.5-5.1); SODIUM 141 mmol/L (136-145); UREA NITROGEN 6 mg/dL (7-18); eGFR NON AFRICAN AMERICAN > 90 mL/min (90-120)
[2018-01-13] VITALS (25 sets, daily range): BP systolic 101–125; BP diastolic 47–69
[2018-01-13 05:52] LABS: BASOPHILS 0.3 % (0-2); EOSINOPHILS 2.1 % (0-7); HEMATOCRIT 32.8 % (36.0-48.0); HEMOGLOBIN 10.4 g/dL (12-16); IMMATURE GRANULOCYTES 1.1 % (0-5); LYMPHOCYTES 18.5 % (15-50); MCH 31.2 pg (26.0-34.0); MCHC 31.7 g/dL (31.0-37.0); MCV 98.5 fL (80.0-100.0); MEAN PLATELET VOLUME 9.1 fL (7.4-10.4); MONOCYTES 11.9 % (2-11); NEUTROPHILS 66.1 % (40-80); PLATELET COUNT 269 10x3/uL (130-400); RBC 3.33 10x6/uL (4.00-5.40); RDW 13.5 % (11.5-14.5); WBC 6.2 10x3/uL (4.8-10.8)
[2018-01-13 06:17] LABS: CALC OSMOLALITY 282 mosm/kg (275-300); CALCIUM 8.8 mg/dL (8.5-10.1); CARBON DIOXIDE 29.3 mmol/L (21.0-32.0); CHLORIDE - SERUM 106 mmol/L (98-107); CREATININE - SERUM 0.5 mg/dL (0.6-1.3); GLUCOSE 109 mg/dL (74-106); POTASSIUM - SERUM 3.9 mmol/L (3.5-5.1); SODIUM 143 mmol/L (136-145); UREA NITROGEN 5 mg/dL (7-18); eGFR NON AFRICAN AMERICAN > 90 mL/min (90-120)
[2018-01-14] VITALS (10 sets, daily range): BP systolic 96–119; BP diastolic 48–69
[2018-01-14 06:13] LABS: BASOPHILS 0.4 % (0-2); EOSINOPHILS 2.1 % (0-7); HEMATOCRIT 34.8 % (36.0-48.0); HEMOGLOBIN 11.3 g/dL (12-16); IMMATURE GRANULOCYTES 1.5 % (0-5); LYMPHOCYTES 21.6 % (15-50); MCH 31.7 pg (26.0-34.0); MCHC 32.5 g/dL (31.0-37.0); MCV 97.8 fL (80.0-100.0); MEAN PLATELET VOLUME 9.1 fL (7.4-10.4); NEUTROPHILS 61.4 % (40-80); RBC 3.56 10x6/uL (4.00-5.40); RDW 13.7 % (11.5-14.5)
[2018-01-14 06:17] LABS: PLATELET COUNT 353 10x3/uL (130-400); WBC 7.8 10x3/uL (4.8-10.8)
[2018-01-14 06:45] LABS: CALC OSMOLALITY 270 mosm/kg (275-300); CALCIUM 9.5 mg/dL (8.5-10.1); CARBON DIOXIDE 27.8 mmol/L (21.0-32.0); CHLORIDE - SERUM 102 mmol/L (98-107); CREATININE - SERUM 0.5 mg/dL (0.6-1.3); GLUCOSE 106 mg/dL (74-106); POTASSIUM - SERUM 4.4 mmol/L (3.5-5.1); SODIUM 137 mmol/L (136-145); UREA NITROGEN 5 mg/dL (7-18); eGFR NON AFRICAN AMERICAN > 90 mL/min (90-120)
[2018-01-14] MEDS ORDERED: MUCINEX600 MG PO (10:15)
[2018-01-14] MEDS ORDERED: ASPIRIN325 MG PO (10:16)
[2018-01-14] MEDS ORDERED: LEVAQUIN500 MG PO (10:18)
[2018-01-14] MEDS ORDERED: HYDROCODONE-APA1 TAB PO (10:19)
== END 2018-01-14 12:15 | disposition home or self-care (01) | DRG 163 ==
LOC: D.SDCHOLD 05:12 → D.CVICU 05:12 → D.SDCHOLD 07:30 → D.CVICU 10:15
PROVIDERS: Internal Medicine Cardiovascular Disease; Internal Medicine Pulmonary Disease
PROC: 07T70ZZ Resection of Thorax Lymphatic, Open Approach (ICD-10-PCS; 2018-01-06)
PROC: 0BJ08ZZ Inspection of Tracheobronchial Tree, Via Natural or Artificial Opening Endoscopic (ICD-10-PCS; 2018-01-06)
PROC: 0BT60ZZ Resection of Right Lower Lobe Bronchus, Open Approach (ICD-10-PCS; principal; 2018-01-06 07:30)
DX: C34.31 Malignant neoplasm of lower lobe, right bronchus or lung (principal); J96.01 Acute respiratory failure with hypoxia; J18.9 Pneumonia, unspecified organism; J44.1 Chronic obstructive pulmonary disease with (acute) exacerbation; J98.11 Atelectasis; G47.33 Obstructive sleep apnea (adult) (pediatric); K21.9 Gastro-esophageal reflux disease without esophagitis; I27.20 Pulmonary hypertension, unspecified; D72.829 Elevated white blood cell count, unspecified; G47.00 Insomnia, unspecified; D64.9 Anemia, unspecified; R53.81 Other malaise

== ENCOUNTER → 2018-01-29 11:21 | Outpatient (CLI) | payer BC ==
[2018-01-08 09:17] VITALS: BMI 29.1
[~2018-01-29 11:21] MED LIST changes: +ASPIRIN325 MG PO; +BENZONATATE200 MG PO; +CHANTIX0.5 MG PO; +LEVAQUIN500 MG PO; +MUCINEX600 MG PO
== END | disposition home or self-care (01) ==
LOC: D.RAD 01-28 15:45
DX: J90 Pleural effusion, not elsewhere classified (principal); C34.90 Malignant neoplasm of unspecified part of unspecified bronchus or lung

== ENCOUNTER → 2018-02-06 08:48 | Outpatient (CLI) | payer BC ==
[2018-01-08 09:17] VITALS: BMI 29.1
== END | disposition home or self-care (01) ==
LOC: D.CT 08:48
DX: C78.01 Secondary malignant neoplasm of right lung (principal)

== ENCOUNTER → 2018-02-09 08:10 | Outpatient (CLI) | payer BC ==
[2018-01-08 09:17] VITALS: BMI 29.1
== END | disposition home or self-care (01) ==
LOC: D.NM 08:10
DX: C78.01 Secondary malignant neoplasm of right lung (principal)

== ENCOUNTER 2018-02-13 06:17 | Day surgery (SDC) | payer BC ==
[~2018-02-13] VITALS: Ht 149.9 cm; Wt 61.2 kg
--- NOTE | ~2018-02-13 | OP ---
PATIENT NAME: NARGIS CUELLO MEDICAL RECORD: [id number] :68 LOCATION:D.OPS ADMISSION DATE: SURGEON: ANIL NY MD DATE OF OPERATION: 02/13/2018 PREOPERATIVE DIAGNOSES: 1. Lung cancer. 2. Gastroesophageal reflux disease. 3. Tobacco dependence. POSTOPERATIVE DIAGNOSES: 1. Lung cancer. 2. Gastroesophageal reflux disease. 3. Tobacco dependence. PROCEDURES: 1. Left subclavian vein port placement. 2. Fluoroscopic interpretation. SURGEON: Anil Ny MD REPORT OF PROCEDURE: The patient's left chest was prepped and draped in sterile fashion. A needle was used to cannulate the left subclavian vein and a guidewire was advanced with ease. Fluoro was used to note that the wire was in good position in the venous system. A skin incision was made on the left superior lateral chest and a subcutaneous pouch was made over the pectoral fascia. The catheter was tunneled between this pouch and the wire exit site. The port was then sutured to the pectoral fascia using interrupted 2-0 Prolenes times 2. The catheter was cut with a beveled tip at 20 cm. The dilator trocar device placed over the wire and the wire and dilator were removed. The catheter tip was advanced through the trocar and the trocar was removed. Fluoro was used to note that the catheter tip was resting comfortably in the superior vena cava. The catheter aspirated nonpulsatile dark blood and flushed easily with heparinized saline. The subcutaneous tissues were then reapproximated with interrupted 3-0 Vicryl and the skin was closed with running subcutaneous 5-0 Monocryl. COMPLICATIONS: None. CONDITION: Stable. ANESTHESIA: General endotracheal. BLOOD LOSS: Minimal. TRANSINT:[id number] Voice Confirmation ID: [id number] DOCUMENT ID: [id number] OPERATIVE REPORT [id number] ELIZABETH CUELLOYLA Alexandre ANIL NY MD at 1309 CC: WARREN BLANCO and JAREK VELASQUEZ MD [id number] DICTATION DATE: 02/13/18 1005 CLINICAL SUPPORT SPECIALIST: 02/13/18 [id number] [place] [address]
[2018-02-13 06:46] LABS: BASOPHILS 0.2 % (0-2); EOSINOPHILS 6.2 % (0-7); HEMATOCRIT 40.1 % (36.0-48.0); HEMOGLOBIN 13.1 g/dL (12-16); IMMATURE GRANULOCYTES 0.5 % (0-5); LYMPHOCYTES 21.8 % (15-50); MCH 30.9 pg (26.0-34.0); MCHC 32.7 g/dL (31.0-37.0); MCV 94.6 fL (80.0-100.0); MEAN PLATELET VOLUME 9.2 fL (7.4-10.4); MONOCYTES 8.7 % (2-11); NEUTROPHILS 62.6 % (40-80); PLATELET COUNT 283 10x3/uL (130-400); RBC 4.24 10x6/uL (4.00-5.40); RDW 14.4 % (11.5-14.5); WBC 8.3 10x3/uL (4.8-10.8)
[2018-02-13 07:21] LABS: APTT 23.7 SECONDS (22.8-39.4); INR 0.93 (0.85-1.17); PROTIME 12.1 SECONDS (11.6-15.0)
[2018-02-13 07:23] VITALS: BP 117/70; Ht 149.9 cm; Wt 61.2 kg
== END 2018-02-13 12:15 | disposition home or self-care (01) ==
LOC: D.OPS 06:17 → D.PAN 09:00 → D.OPS 12:15 → D.PAN 12:30 → D.OPS 13:00
PROVIDERS: Anesthesiology
DX: C34.90 Malignant neoplasm of unspecified part of unspecified bronchus or lung (principal); K21.9 Gastro-esophageal reflux disease without esophagitis; F17.200 Nicotine dependence, unspecified, uncomplicated; Z01.812 Encounter for preprocedural laboratory examination

== ENCOUNTER 2018-03-09 06:19 | Outpatient (CLI) | payer BC ==
[2018-02-13 07:23] VITALS: BMI 27.3
== END 2018-03-09 23:59 | disposition home or self-care (01) ==
LOC: D.MAMMO 06:19
DX: Z12.31 Encounter for screening mammogram for malignant neoplasm of breast (principal)

== ENCOUNTER → 2018-04-02 20:48 | Outpatient (CLI) | payer BC ==
[2018-02-13 07:23] VITALS: BMI 27.3
== END | disposition home or self-care (01) ==
LOC: D.MAMMO 13:30
DX: R92.8 Other abnormal and inconclusive findings on diagnostic imaging of breast (principal)

== ENCOUNTER → 2018-06-10 13:46 | Outpatient (CLI) | payer BC ==
[2018-02-13 07:23] VITALS: BMI 27.3
[~2018-06-10 13:46] MED LIST changes: +LEVAQUIN750 MG PO; +VENTOLIN HFA18 GM INH
== END | disposition home or self-care (01) ==
LOC: D.RAD 13:46
DX: C78.01 Secondary malignant neoplasm of right lung (principal); C34.31 Malignant neoplasm of lower lobe, right bronchus or lung; J44.1 Chronic obstructive pulmonary disease with (acute) exacerbation

== ENCOUNTER → 2018-06-24 10:43 | Outpatient (CLI) | payer BC ==
[2018-02-13 07:23] VITALS: BMI 27.3
[2018-06-24 11:46] LABS: ALBUMIN 3.2 g/dL (3.4-5.0); ALKALINE PHOSPHATASE 82 U/L (46-116); ALT (SGPT) 32 U/L (10-68); BILIRUBIN - TOTAL 0.38 mg/dL (0.2-1.3); CALC OSMOLALITY 275 mosm/kg (275-300); CALCIUM 8.6 mg/dL (8.5-10.1); CARBON DIOXIDE 25.2 mmol/L (21.0-32.0); CHLORIDE - SERUM 101 mmol/L (98-107); CREATININE - SERUM 0.5 mg/dL (0.6-1.3); GLUCOSE 102 mg/dL (74-106); POTASSIUM - SERUM 3.9 mmol/L (3.5-5.1); PROTEIN - SERUM 6.9 g/dL (6.4-8.2); SODIUM 139 mmol/L (136-145); UREA NITROGEN 7 mg/dL (7-18); eGFR NON AFRICAN AMERICAN > 90 mL/min (90-120)
== END | disposition home or self-care (01) ==
LOC: D.LABREF 10:43
PROVIDERS: Internal Medicine Hematology & Oncology
DX: C78.01 Secondary malignant neoplasm of right lung (principal); D72.829 Elevated white blood cell count, unspecified

== ENCOUNTER 2018-06-29 12:23 | Inpatient (IN) | payer BC ==
[~2018-06-29] VITALS: Ht 147.3 cm; Wt 64.9 kg
--- NOTE | ~2018-06-29 | MORECARE ---
CASE MANAGEMENT DISCHARGE SUMMARY PATIENT: NARGIS CUELLO UNIT: [id number] ADM DATE: 06/30/18 AGE: 48 : 68 SEX: F ROOM/BED: D.[facility] AUTHOR: DOROTA,DOC PHYSICIAN: REFERRING PHYSICIAN: WARREN BLANCO MD DATE OF SERVICE: 07/01/18 Discharge Plan Patient Name: NARGIS CUELLO Facility: [facility]:[place] : 1970 Planned Disposition: Home Anticipated Discharge Date: Discharge Date: Expected LOS: Initial Reviewer: [email or web address] Initial Review Date: 07/01/2018 Generated: 07/01/18 5:45 pm Comments DCP- Discharge Planning Updated by [email or web address]: Hanny Hoffmann on 07/01/18 3:[address] Patient Name: NARGIS CUELLO Admission Status: Urgent Accout number: [id number] Admission Date: 06-30-2018 : 1970 Admission Diagnosis: Attending: WARREN BLANCO Current LOS: 1 Anticipated DC Date: Planned Disposition: Home Primary Insurance: [employer] EXCHANGE Discharge Planning Comments: CM met with patient, she is alone in the room. States she lives with her . States she is independent with all ADL's and IADL's. Informed of availability of inpatient rehab, SNF, home health. States her plan is to return home with her . Declines need for HHS or additional DME. States her will take her home on discharge. No needs identified at this time. CM will continue to follow and assist with discharge planning/needs. Development Coordinator: Hanny Hoffmann DCPIA - Discharge Planning Initial Assessment Updated by [email or web address]: Hanny Hoffmann on 07/01/18 4:32 pm * Is the patient Alert and Oriented? Yes * How many steps to enter\exit or inside your home? * PCP Dr. Blanco * Pharmacy budget * Preadmission Environment Home with Family * ADLs Independent * Equipment Bedside Commode CPAP Nebulizer Other Oxygen Shower Chair Walker * Other Equipment Portable oxygen * List name and contact numbers for known caregivers / representatives who currently or will assist patient after discharge: Christelle - - [phone] * Verbal permission to speak to the caregivers and representatives has been obtained from the patient. Yes * Community resources currently utilized None * Please name any agencies selected above. DME company is [facility] Patient * Additional services required to return to the preadmission environment? No * Can the patient safely return to the preadmission environment? Yes * Has this patient been hospitalized within the prior 30 days at any hospital? No Last DP export: 07/01/18 3:33 Patient Name: NARGIS CUELLO Page [id number] at 1646 All edits/amendments must be made on the electronic document DICTATION DATE: 07/01/181644 SCIENTIFIC LINGUIST: ERLIN 07/01/181644 RPT#: [id number] DC DATE: STATUS: ADM IN [facility] [address] [place] [address] END OF REPORT
--- NOTE | ~2018-06-29 | MORECARE ---
CASE MANAGEMENT DISCHARGE SUMMARY PATIENT: NARGIS CUELLO UNIT: [id number] ADM DATE: 06/30/18 AGE: 48 : [birth year] SEX: F ROOM/BED: D.[facility] AUTHOR: MACK RAYA PHYSICIAN: REFERRING PHYSICIAN: WARREN BLANCO MD DATE OF SERVICE: 07/01/18 Discharge Plan Patient Name: NARGIS [facility]UELLO [facility] [facility] 1970 Planned Disposition: Home Anticipated Discharge Date: Discharge Date: Expected LOS: Initial Reviewer: [email or web address] Initial Review Date: 07/01/2018 Generated: 07/01/18 5:33 pm DCPIA - Discharge Planning Initial Assessment Updated by [email or web address]: Hanny Hoffmann on 07/01/18 4:32 pm * Is the patient Alert and Oriented? Yes * How many steps to enter\exit or inside your home? * PCP Dr. Blanco * Pharmacy budget * Preadmission Environment Home with Family * ADLs Independent * Equipment Bedside Commode CPAP Nebulizer Other Oxygen Shower Chair Walker * Other Equipment Portable oxygen * List name and contact numbers for known caregivers / representatives who currently or will assist patient after discharge: Christelle [facility] - [phone] * Verbal permission to speak to the caregivers and representatives has been obtained from the patient. Yes * Community resources currently utilized None * Please name any agencies selected above. DME company is [facility] Patient * Additional services required to return to the preadmission environment? No * Can the patient safely return to the preadmission environment? Yes * Has this patient been hospitalized within the prior 30 days at any hospital? No Patient Name: NARGIS CUELLO Page [phone] at 1633 All edits/amendments must be made on the electronic document DICTATION DATE: 07/01/181631 [employer] CIVIL ENGINEER: ERLIN 07/01/181631 RPT#: [id number] DC DATE: STATUS: ADM IN [facility] [address] [place] [address] END OF REPORT
--- NOTE | ~2018-06-29 | MORECARE ---
CASE MANAGEMENT DISCHARGE SUMMARY PATIENT: NARGIS CUELLO UNIT: [id number] ADM DATE: 06/30/18 AGE: 48 : 68 SEX: F ROOM/BED: D.[facility] AUTHOR: DOROTA,DOC PHYSICIAN: REFERRING PHYSICIAN: WARREN BLANCO MD DATE OF SERVICE: 07/03/18 Discharge Plan Patient Name: NARGIS CUELLO Facility[facility]:[place] : 1970 Planned Disposition: Home Anticipated Discharge Date: Discharge Date: 07/02/2018 Expected LOS: 0 Initial Reviewer: [email or web address] Initial Review Date: 07/01/2018 Generated: 07/03/18 10:28 am Comments DCP- Discharge Planning Updated by [email or web address]: Hanny Hoffmann on 07/01/18 3:[address] Patient Name: NARGIS CUELLO Admission Status: Urgent Accout number: [id number] Admission Date: 06-30-2018 : 1970 Admission Diagnosis: Attending: WARREN BLANCO Current LOS: 1 Anticipated DC Date: Planned Disposition: Home Primary Insurance: [employer] EXCHANGE Discharge Planning Comments: CM met with patient, she is alone in the room. States she lives with her . States she is independent with all ADL's and IADL's. Informed of availability of inpatient rehab, SNF, home health. States her plan is to return home with her . Declines need for HHS or additional DME. States her will take her home on discharge. No needs identified at this time. CM will continue to follow and assist with discharge planning/needs. Soil Conservation Aide: Hanny Hoffmann DCPIA - Discharge Planning Initial Assessment Updated by [email or web address]: Hanny Hoffmann on 07/01/18 4:32 pm * Is the patient Alert and Oriented? Yes * How many steps to enter\exit or inside your home? * PCP Dr. Blanco * Pharmacy budget * Preadmission Environment Home with Family * ADLs Independent * Equipment Bedside Commode CPAP Nebulizer Other Oxygen Shower Chair Walker * Other Equipment Portable oxygen * List name and contact numbers for known caregivers / representatives who currently or will assist patient after discharge: Christelle - - [phone] * Verbal permission to speak to the caregivers and representatives has been obtained from the patient. Yes * Community resources currently utilized None * Please name any agencies selected above. DME company is [facility] Patient * Additional services required to return to the preadmission environment? No * Can the patient safely return to the preadmission environment? Yes * Has this patient been hospitalized within the prior 30 days at any hospital? No Last DP export: 07/01/18 3:46 Patient Name: NARGIS CUELLO Page 68631 at 0928 All edits/amendments must be made on the electronic document DICTATION DATE: 07/03/18926 FIRER ELECTRIC LOCOMOTIVE: ERLIN 07/03/18926 RPT#: [id number] DC DATE:07/02/18 STATUS: DIS IN [facility] [address] [place] [address] END OF REPORT
[~2018-06-29 12:23] MED LIST changes: -LEVAQUIN750 MG PO; -VENTOLIN HFA18 GM INH
[2018-06-29 13:12] VITALS: BP 111/76; BMI 29.9
[2018-06-29 14:26] LABS: BASOPHILS 0.2 % (0-2); EOSINOPHILS 0.3 % (0-7); HEMATOCRIT 36.9 % (36.0-48.0); HEMOGLOBIN 12.6 g/dL (12-16); IMMATURE GRANULOCYTES 0.6 % (0-5); LYMPHOCYTES 6.9 % (15-50); MCH 33.1 pg (26.0-34.0); MCHC 34.1 g/dL (31.0-37.0); MCV 96.9 fL (80.0-100.0); MEAN PLATELET VOLUME 8.8 fL (7.4-10.4); MONOCYTES 10.3 % (2-11); NEUTROPHILS 81.7 % (40-80); PLATELET COUNT 318 10x3/uL (130-400); RBC 3.81 10x6/uL (4.00-5.40); RDW 14.4 % (11.5-14.5); WBC 9.7 10x3/uL (4.8-10.8)
[2018-06-29 14:35] LABS: ALKALINE PHOSPHATASE 97 U/L (46-116); ALT (SGPT) 21 U/L (10-68); BILIRUBIN - TOTAL 0.43 mg/dL (0.2-1.3); CALC OSMOLALITY 270 mosm/kg (275-300); CALCIUM 8.6 mg/dL (8.5-10.1); CARBON DIOXIDE 22.4 mmol/L (21.0-32.0); CHLORIDE - SERUM 99 mmol/L (98-107); CREATININE - SERUM 0.5 mg/dL (0.6-1.3); GLUCOSE 88 mg/dL (74-106); MAGNESIUM - SERUM 1.9 mg/dL (1.8-2.4); POTASSIUM - SERUM 3.8 mmol/L (3.5-5.1); SODIUM 137 mmol/L (136-145); UREA NITROGEN 7 mg/dL (7-18); eGFR NON AFRICAN AMERICAN > 90 mL/min (90-120)
[2018-06-29 14:56] LABS: APTT 26.2 SECONDS (22.8-39.4); INR 1.09 (0.85-1.17); PROTIME 13.7 SECONDS (11.6-15.0)
[2018-06-29 17:01] VITALS: BP 110/67
[2018-06-29 17:23] LABS: APPEARANCE CLEAR (CLEAR); BILIRUBIN NEGATIVE (NEGATIVE); COLOR YELLOW (YELLOW); GLUCOSE NEGATIVE (NEGATIVE); KETONE MODERATE mg/dL (NEGATIVE); NITRITE NEGATIVE (NEGATIVE); PROTEIN NEGATIVE (NEGATIVE); UROBILINOGEN NORMAL (NORMAL)
[2018-06-29 17:24] LABS: BACTERIA NONE SEEN /hpf (NONE SEEN); EPITHELIAL CELLS NSEEN /hpf (0-5); RED CELLS - URINE NONE SEEN /hpf (0-5); WHITE CELLS - URINE NSEEN /hpf (0-5)
[2018-06-29 20:00] VITALS: BP 120/68
[2018-06-30 05:20] LABS: BASOPHILS 0.3 % (0-2); EOSINOPHILS 0.8 % (0-7); HEMATOCRIT 33.4 % (36.0-48.0); HEMOGLOBIN 11.3 g/dL (12-16); IMMATURE GRANULOCYTES 0.8 % (0-5); LYMPHOCYTES 8.8 % (15-50); MCH 32.3 pg (26.0-34.0); MCHC 33.8 g/dL (31.0-37.0); MCV 95.4 fL (80.0-100.0); MEAN PLATELET VOLUME 8.8 fL (7.4-10.4); MONOCYTES 11.7 % (2-11); NEUTROPHILS 77.6 % (40-80); PLATELET COUNT 257 10x3/uL (130-400); RDW 14.4 % (11.5-14.5)
[2018-06-30 05:21] LABS: WBC 6.6 10x3/uL (4.8-10.8)
[2018-06-30 05:39] VITALS: BP 116/63
[2018-06-30 05:39] LABS: CALC OSMOLALITY 275 mosm/kg (275-300); CALCIUM 8.5 mg/dL (8.5-10.1); CARBON DIOXIDE 25.3 mmol/L (21.0-32.0); CHLORIDE - SERUM 103 mmol/L (98-107); CREATININE - SERUM 0.4 mg/dL (0.6-1.3); GLUCOSE 92 mg/dL (74-106); POTASSIUM - SERUM 4.2 mmol/L (3.5-5.1); SODIUM 140 mmol/L (136-145); eGFR NON AFRICAN AMERICAN > 90 mL/min (90-120)
[2018-06-30 05:53] LABS: UREA NITROGEN 5 mg/dL (7-18)
[2018-06-30 08:18] VITALS: BP 102/64
[2018-06-30 12:16] VITALS: BP 101/66
[2018-06-30 15:58] VITALS: BP 110/60
[2018-06-30 20:00] VITALS: BP 96/59
[2018-07-01 05:53] LABS: BASOPHILS 0.3 % (0-2); EOSINOPHILS 0.5 % (0-7); HEMATOCRIT 33.6 % (36.0-48.0); HEMOGLOBIN 11.3 g/dL (12-16); IMMATURE GRANULOCYTES 0.5 % (0-5); LYMPHOCYTES 9.5 % (15-50); MCH 32.4 pg (26.0-34.0); MCHC 33.6 g/dL (31.0-37.0); MCV 96.3 fL (80.0-100.0); MEAN PLATELET VOLUME 8.7 fL (7.4-10.4); MONOCYTES 13.2 % (2-11); PLATELET COUNT 308 10x3/uL (130-400); RBC 3.49 10x6/uL (4.00-5.40); RDW 14.3 % (11.5-14.5); WBC 7.6 10x3/uL (4.8-10.8)
[2018-07-01 05:55] LABS: CALC OSMOLALITY 277 mosm/kg (275-300); CALCIUM 8.4 mg/dL (8.5-10.1); CARBON DIOXIDE 24.5 mmol/L (21.0-32.0); CHLORIDE - SERUM 105 mmol/L (98-107); CREATININE - SERUM 0.5 mg/dL (0.6-1.3); GLUCOSE 105 mg/dL (74-106); POTASSIUM - SERUM 3.6 mmol/L (3.5-5.1); SODIUM 141 mmol/L (136-145); UREA NITROGEN 5 mg/dL (7-18); eGFR NON AFRICAN AMERICAN > 90 mL/min (90-120)
[2018-07-01 06:13] VITALS: BP 106/66
[2018-07-01 09:07] VITALS: BP 111/76
[2018-07-01 10:36] VITALS: Ht 147.3 cm; Wt 64.9 kg
[2018-07-01 12:29] VITALS: BP 112/64
[2018-07-01 17:14] VITALS: BP 101/54
[2018-07-01 20:00] VITALS: BP 103/54
[2018-07-02 04:00] VITALS: BP 118/64
[2018-07-02 05:46] LABS: BASOPHILS 0.2 % (0-2); EOSINOPHILS 0.8 % (0-7); HEMATOCRIT 34.4 % (36.0-48.0); HEMOGLOBIN 11.6 g/dL (12-16); IMMATURE GRANULOCYTES 0.4 % (0-5); MCH 32.5 pg (26.0-34.0); MCHC 33.7 g/dL (31.0-37.0); MCV 96.4 fL (80.0-100.0); MEAN PLATELET VOLUME 8.6 fL (7.4-10.4); MONOCYTES 10.7 % (2-11); NEUTROPHILS 74.9 % (40-80); PLATELET COUNT 301 10x3/uL (130-400); RBC 3.57 10x6/uL (4.00-5.40); RDW 14.3 % (11.5-14.5)
[2018-07-02 05:54] LABS: WBC 5.1 10x3/uL (4.8-10.8)
[2018-07-02 06:01] LABS: CALC OSMOLALITY 281 mosm/kg (275-300); CALCIUM 8.5 mg/dL (8.5-10.1); CARBON DIOXIDE 26.7 mmol/L (21.0-32.0); CHLORIDE - SERUM 106 mmol/L (98-107); CREATININE - SERUM 0.4 mg/dL (0.6-1.3); GLUCOSE 102 mg/dL (74-106); POTASSIUM - SERUM 3.5 mmol/L (3.5-5.1); SODIUM 143 mmol/L (136-145); eGFR NON AFRICAN AMERICAN > 90 mL/min (90-120)
[2018-07-02 06:11] LABS: UREA NITROGEN 3 mg/dL (7-18)
[2018-07-02 08:34] VITALS: BP 110/66
[2018-07-02 15:45] VITALS: BP 112/68
[2018-07-02] MEDS ORDERED: LEVAQUIN750 MG PO (17:54)
[2018-07-02] MEDS ORDERED: VENTOLIN HFA18 GM INH (17:56)
== END 2018-07-02 20:04 | disposition home or self-care (01) | DRG 194 ==
LOC: D.MS 12:23 → OBSVTIME 12:23 → D.MS 12:23
PROVIDERS: Family Medicine; Internal Medicine Nephrology
DX: J10.00 Influenza due to other identified influenza virus with unspecified type of pneumonia (principal); J44.0 Chronic obstructive pulmonary disease with (acute) lower respiratory infection; J96.10 Chronic respiratory failure, unspecified whether with hypoxia or hypercapnia; F17.203 Nicotine dependence unspecified, with withdrawal; Z99.81 Dependence on supplemental oxygen; K21.9 Gastro-esophageal reflux disease without esophagitis; F41.8 Other specified anxiety disorders; D64.9 Anemia, unspecified

== ENCOUNTER → 2018-07-14 10:20 | Outpatient (CLI) | payer BC ==
[2018-07-01 10:36] VITALS: BMI 29.8
--- NOTE | ~2018-07-14 | HEMODYNAMI ---
PATIENT:NARGIS CUELLO MEDICAL RECORD: [id number] : 68 LOCATION:DGERTRUDIS ADMISSION DATE: 07/14/18 Generatedon:07/14/201811:43 Patient name: NARGIS CUELLO Patient #: [id number] SSN: : 1970 Date of study: 07/14/2018 Page: Of Hemodynamic Procedure Report Patient Data Patient Demographics Procedure consent was obtained First Name: NARGIS Gender: Female Last Name: CUATE : 1970 Middle Initial: Y Age: 48 year(s) Patient #: [id number] Race: Unknown Additional ID: [id number] Contact details Address: [address] [place] [address] State: [place] City: [place] Zip code: [address] Admission Admission Data Admission Date: 07/14/2018 Admission Time: 10:20 Procedure Procedure Types Cath Procedure Peripheral Cath Diagnostic Procedure Miscellaneous Cathetergram Procedure Description Procedure Date Procedure Date: 07/14/2018 Procedure Start Time: 11:40 Procedure Staff Name Function Lester Singleton MD Performing Physician Luigi Meier RT Monitor Maria M Mendoza RN Nurse Nan Guzman Scrub Procedure Data Cath Procedure Fluoroscopy Diagnostic fluoroscopy Total fluoroscopy Time: 0.4 time: 0.4 min min Diagnostic fluoroscopy Total fluoroscopy dose: 46 dose: 46 mGy mGy Contrast Material Contrast Material Type Amount (ml) Isovue 300 7 Hemodynamics Rest Pre Cath Intra NCS Post Cath Procedure Log Time Note 10:54:25 Nan Guzman sent for patient. Start room use. 10:54:30 Time tracking: Regular hours (M-F 7:00 - 5:00) 10:54:46 Patient received from Other to IR Alert and oriented. Tansferred to table in Supine position. 10:54:48 Warm blankets applied for patient comfort. 10:55:11 Correct patient and procedure confirmed by team. 10:55:18 Signed procedure consent form obtained from patient. 10:55:24 Full Disclosure recording started 10:56:40 Patient here for cathogram injection. 10:56:55 No allergies. 10:57:10 No sedation to be given. 10:57:42 Port is on left side and has access already. 10:57:58 Alarms reviewed. 10:58:03 Sharps counted by scrub and verified. 11:35:23 --------ALL STOP TIME OUT------ 11:35:40 Left chest site verified by team. 11:36:09 Sedation plan: Local Anesthetic Medication:Lidocaine 11:36:15 Maria M Mendoza RN present and monitoring patient for TIVA. 11:40:51 Procedure started. 11:41:49 Procedure ended.(Physican Out) 11:41:55 Fluoroscopy time 00.40 minutes. 11:42:00 Fluoroscopy dose: 46 mGy 11:42:00 Flurop Dose total: 46 11:42:11 Contrast amount:Isovue 300 7ml. 11:42:18 Sharps counted by scrub and verified by R.N. 11:42:23 Report given to Outpatients. 11:42:42 Patient transfered to Outpatients with Ambulatory. Signature Audit [place] Stage Time Signature Unsigned Intra-Procedure 07/14/2018 Luigi 11:43:15 AM Renea RT (R) (CV) Signatures Monitor : Luigi Signature : Renea RT Date : Time : [id number] [place] [address]
[~2018-07-14 10:20] MED LIST changes: +ATROVENT 0.02%2.5 ML UPD; +BROVANA15 MCG/2 M INH; +DOXYCYCLINE HY100 M2 PO; +FEXOFENADINE HC60 MG PO; +FLUTICASONE PRO16 GM NASAL; +LEVAQUIN750 MG PO; +MUCINEX DM ER1 EAC1 PO; +Nicoderm [PBKC] TRANSDERM; +PREDNISONE10 MG PO; +PRO-AIR; +PULMICORT0.5 MG/21 UPD; +VENTOLIN HFA18 GM INH; +XOPENEX 0.0.63 MG/3 UPD; +[UNRECOGNIZED DRUG - OTHER] PO
== END | disposition home or self-care (01) ==
LOC: D.SP 10:20
DX: T82.594A Other mechanical complication of infusion catheter, initial encounter (principal); I82.290 Acute embolism and thrombosis of other thoracic veins; Z85.118 Personal history of other malignant neoplasm of bronchus and lung; Z01.812 Encounter for preprocedural laboratory examination

== ENCOUNTER 2018-07-21 08:07 | Day surgery (SDC) | payer BC ==
[~2018-07-21] VITALS: Ht 147.3 cm; Wt 63.5 kg
--- NOTE | ~2018-07-21 | OP ---
PATIENT NAME: NARGIS CUELLO MEDICAL RECORD: [id number] :68 LOCATION:D.OPS ADMISSION DATE: SURGEON: ANIL NY MD DATE OF OPERATION: 07/21/2018 PREOPERATIVE DIAGNOSES: 1. Malfunctioning Port-A-Cath. 2. Lung cancer. 3. Tobacco dependence syndrome. 4. Hypertension. 5. Gastroesophageal reflux disease. POSTOPERATIVE DIAGNOSES: 1. Malfunctioning Port-A-Cath. 2. Lung cancer. 3. Tobacco dependence syndrome. 4. Hypertension. 5. Gastroesophageal reflux disease. PROCEDURES: 1. Left subclavian vein port exchange. 2. Fluoroscopic interpretation. SURGEON: Anil Ny MD REPORT OF PROCEDURE: The patient's left chest was prepped and draped in sterile fashion. A skin incision was made overlying the indwelling port. We were able to dissect this free and after freeing it from the 2 sutures holding it in place, it was eviscerated through the wound. We then made a small incision on the left chest overlying the bend of the catheter going under the clavicle. We were able to pull this up and transect the catheter. We then advanced a wire with ease under fluoroscopic guidance. We were able to eventually pass the wire through what appeared to be a fibrinous sheath. Once we got past this wire, projected easily towards the patient's right atrium. A new port and catheter were inserted. The catheter was tunneled between the subcutaneous pouch and the wire exit site. The catheter was then sutured to the pectoral fascia using interrupted 2-0 Prolenes times 2. The catheter was cut with a beveled tip at 25 cm, which is about 5 cm longer than what the previous catheter had been. The dilator trocar device was then placed over the wire and the wire and dilator were removed. The catheter tip was advanced through the trocar and the trocar was then removed. The catheter tip was noted to be resting in good position right near the right atrial opening. There was some fluctuations of the catheter with beating in the heart. There were no signs of any EKG changes with the catheter in place. The catheter did aspirate nonpulsatile dark blood and flushed easily with heparinized saline. The subcutaneous tissues were reapproximated with interrupted 3-0 Vicryl and the skin was closed with running subcutaneous 5-0 Monocryl. We then accessed the port and flushed it one last time before applying a dressing. COMPLICATIONS: None. CONDITION: Stable. ANESTHESIA: General endotracheal. OPERATIVE REPORT [id number] NARGIS CUELLO BLOOD LOSS: Minimal. TRANSINT:[id number] Voice Confirmation ID: [id number] DOCUMENT ID: [id number] ANIL NY MD at 1219 CC: WARREN BLANCO and JAREK VELASQUEZ MD [id number] DICTATION DATE: 07/21/18 1103 LDR RN: 07/21/18 1125 [facility] SDC 07/21/18 [address] [place] [address]
[~2018-07-21 08:07] MED LIST changes: -ATROVENT 0.02%2.5 ML UPD; -BROVANA15 MCG/2 M INH; -DOXYCYCLINE HY100 M2 PO; -FEXOFENADINE HC60 MG PO; -FLUTICASONE PRO16 GM NASAL; -MUCINEX DM ER1 EAC1 PO; -Nicoderm [PBKC] TRANSDERM; -PREDNISONE10 MG PO; -PULMICORT0.5 MG/21 UPD; -XOPENEX 0.0.63 MG/3 UPD; -[UNRECOGNIZED DRUG - OTHER] PO
[2018-07-21 08:23] LABS: BASOPHILS 0.3 % (0-2); EOSINOPHILS 1.3 % (0-7); HEMATOCRIT 41.8 % (36.0-48.0); IMMATURE GRANULOCYTES 0.8 % (0-5); LYMPHOCYTES 14.4 % (15-50); MCH 31.9 pg (26.0-34.0); MCHC 33.5 g/dL (31.0-37.0); MCV 95.2 fL (80.0-100.0); MEAN PLATELET VOLUME 8.8 fL (7.4-10.4); MONOCYTES 9.2 % (2-11); PLATELET COUNT 313 10x3/uL (130-400); RBC 4.39 10x6/uL (4.00-5.40); RDW 14.2 % (11.5-14.5); WBC 7.1 10x3/uL (4.8-10.8)
[2018-07-21 08:51] VITALS: BP 99/68; Ht 147.3 cm; Wt 63.5 kg
== END 2018-07-21 12:55 | disposition home or self-care (01) ==
LOC: D.OPS 08:07 → D.PAN 11:15 → D.OPS 12:15 → D.PAN 12:15 → D.OPS 12:55
PROVIDERS: Anesthesiology
DX: T82.594A Other mechanical complication of infusion catheter, initial encounter (principal); C34.90 Malignant neoplasm of unspecified part of unspecified bronchus or lung; F17.200 Nicotine dependence, unspecified, uncomplicated; I10 Essential (primary) hypertension; K21.9 Gastro-esophageal reflux disease without esophagitis; Z01.812 Encounter for preprocedural laboratory examination

== ENCOUNTER 2018-07-31 10:41 | Inpatient (IN) | payer BC ==
[~2018-07-31] VITALS: Ht 147.3 cm; Wt 63.5 kg
--- NOTE | ~2018-07-31 | MORECARE ---
CASE MANAGEMENT DISCHARGE SUMMARY PATIENT: NARGIS CUELLO UNIT: [id number] ADM DATE: 07/31/18 AGE: 48 : 68 SEX: F ROOM/BED: D.2226 AUTHOR: DOROTADOC PHYSICIAN: REFERRING PHYSICIAN: MEME QUEEN MD DATE OF SERVICE: 08/07/18 Discharge Plan Patient Name: NARGIS CUELLO Facility: [facility]:[place] : 1970 Planned Disposition: Home Anticipated Discharge Date: 08/04/18 Discharge Date: 08/06/2018 Expected LOS: 4 Initial Reviewer: [id number] Initial Review Date: 08/04/2018 Generated: 08/07/18 10:46 am Comments DCP- Discharge Planning Updated by [email or web address]: Hanny Chuasagrario on 08/06/18 11:[address] Patient Name: NARGIS CUELLO Encounter No: [id number] : 1970 Primary Insurance: [employer] HLTH EXCHANGE Anticipated DC Date: 08-04-2018 Planned Disposition: Home External Planned Provider: : DCP follow-up note: Patient and family in agreement with discharge plan. States she has nebulizer, oxygen and portable oxygen. States she gets her neb meds from [facility]. States she does not need home health. Her daughter is in the room and states "I'm her home health, I've taken care of both my grandparents on hospice and this one is easy." No changes to plan. Case management will follow and assist as needed. Hanny Shun DCP- Discharge Planning Updated by [email or web address]: Hanny Chuasagrario on 08/04/18 9:[address] Patient Name: NARGIS CUELLO Admission Status: ER Accout number: [id number] Admission Date: 07-31-2018 : 1970 Admission Diagnosis:PNEUMONIA, UNSPECIFIED ORGANISM Attending: MEEM QUEEN Current LOS: 4 Anticipated DC Date: 08-04-2018 Planned Disposition: Home Primary Insurance: [employer] HLTH EXCHANGE Discharge Planning Comments: CM met with patient to discuss discharge planning, she is alone in the room. She states she lives with her . She is independent with all ADL's and IADL's. Discussed the availability of rehab, SNF, home health services. States her discharge plan is to return home with her , he will provide transportation. Declines home health or additional DME needs at this time. CM will continue to follow and assist with discharge planning/needs. Senior Power Scheduler: Hanny Hoffmann DCPIA - Discharge Planning Initial Assessment Updated by [email or web address]: Hanny Hoffmann on 08/04/18 10:00 am * Is the patient Alert and Oriented? Yes * How many steps to enter\\exit or inside your home? 0/0 * PCP Dr. Camejo * Pharmacy Budget * Preadmission Environment Home with Family * ADLs Independent * Equipment Bedside Commode Cane CPAP Nebulizer Other Oxygen Walker Wheelchair * List name and contact numbers for known caregivers / representatives who currently or will assist patient after discharge: Christelle - spouse - [phone] [facility] - [phone] * Verbal permission to speak to the caregivers and representatives has been obtained from the patient. Yes * Community resources currently utilized None * Please name any agencies selected above. DME company for oxygen, nebulizer and CPAP is [facility] * Additional services required to return to the preadmission environment? No * Can the patient safely return to the preadmission environment? Yes * Has this patient been hospitalized within the prior 30 days at any hospital? Yes Last DP export: 08/06/18 11:31 Patient Name: NARGIS CUELLO Page 21850 at 0946 All edits/amendments must be made on the electronic document DICTATION DATE: 08/07/18944 WORKFORCE SERVICES REPRESENTATIVE: ERLIN 08/07/18944 RPT#: [id number] DC DATE:08/06/18 STATUS: DIS IN [facility] [address] [place] [address] END OF REPORT
--- NOTE | ~2018-07-31 | MORECARE ---
CASE MANAGEMENT DISCHARGE SUMMARY PATIENT: NARGIS CUELLO UNIT: [id number] ADM DATE: 07/31/18 AGE: 48 : 68 SEX: F ROOM/BED: D.2226 AUTHOR: MACK RAYA PHYSICIAN: REFERRING PHYSICIAN: MEME QUEEN MD DATE OF SERVICE: 08/06/18 Discharge Plan Patient Name: NARGIS CUELLO Facility: [facility]:[place] : 1970 Planned Disposition: Home Anticipated Discharge Date: 08/04/18 Discharge Date: Expected LOS: 4 Initial Reviewer: [email or web address] Initial Review Date: 08/04/2018 Generated: 08/06/18 1:31 pm Comments DCP- Discharge Planning Updated by [email or web address]: Hanny Chuasagrario on 08/06/18 11:[address] Patient Name: NARGIS CUELLO Encounter No: [id number] : 1970 Primary Insurance: [employer] HLTH EXCHANGE Anticipated DC Date: 08-04-2018 Planned Disposition: Home External Planned Provider: : DCP follow-up note: Patient and family in agreement with discharge plan. States she has nebulizer, oxygen and portable oxygen. States she gets her neb meds from [facility]. States she does not need home health. Her daughter is in the room and states "I'm her home health, I've taken care of both my grandparents on hospice and this one is easy." No changes to plan. Case management will follow and assist as needed. Hanny Chuasagrario DCP- Discharge Planning Updated by [email or web address]: Hanny Hoffmann on 08/04/18 9:[address] Patient Name: NARGIS CUELLO Admission Status: ER Accout number: [id number] Admission Date: 07-31-2018 : 1970 Admission Diagnosis:PNEUMONIA, UNSPECIFIED ORGANISM Attending: MEME QUEEN Current LOS: 4 Anticipated DC Date: 08-04-2018 Planned Disposition: Home Primary Insurance: [employer]TH EXCHANGE Discharge Planning Comments: CM met with patient to discuss discharge planning, she is alone in the room. She states she lives with her . She is independent with all ADL's and IADL's. Discussed the availability of rehab, SNF, home health services. States her discharge plan is to return home with her , he will provide transportation. Declines home health or additional DME needs at this time. CM will continue to follow and assist with discharge planning/needs. Car Tester: Hanny Hoffmann DCPIA - Discharge Planning Initial Assessment Updated by [email or web address]: Hanny Hoffmann on 08/04/18 10:00 am * Is the patient Alert and Oriented? Yes * How many steps to enter\\exit or inside your home? 0/0 * PCP Dr. Camejo * Pharmacy Budget * Preadmission Environment Home with Family * ADLs Independent * Equipment Bedside Commode Cane CPAP Nebulizer Other Oxygen Walker Wheelchair * List name and contact numbers for known caregivers / representatives who currently or will assist patient after discharge: Christelle [facility] - [phone] [facility] - [phone] * Verbal permission to speak to the caregivers and representatives has been obtained from the patient. Yes * Community resources currently utilized None * Please name any agencies selected above. DME company for oxygen, nebulizer and CPAP is [facility] * Additional services required to return to the preadmission environment? No * Can the patient safely return to the preadmission environment? Yes * Has this patient been hospitalized within the prior 30 days at any hospital? Yes Last DP export: 08/04/18 9:07 Patient Name: NARGIS CUELLO Page 34225 at 1231 All edits/amendments must be made on the electronic document DICTATION DATE: 08/06/18 1231 INDUSTRIAL TECHNOLOGY TEACHER: ERLIN 08/06/18 1231 RPT#: [id number] DC DATE: STATUS: ADM IN [facility] [address] [place] [address] END OF REPORT
--- NOTE | ~2018-07-31 | MORECARE ---
CASE MANAGEMENT DISCHARGE SUMMARY PATIENT: NARGIS CUELLO UNIT: [id number] ADM DATE: 07/31/18 AGE: 48 : 68 SEX: F ROOM/BED: D.2226 AUTHOR: DOROTA,DOC PHYSICIAN: REFERRING PHYSICIAN: MEME QUEEN MD DATE OF SERVICE: 08/04/18 Discharge Plan Patient Name: NARGIS CUELLO Facility: [facility]:[place] : 1970 Planned Disposition: Home Anticipated Discharge Date: 08/04/18 Discharge Date: Expected LOS: 4 Initial Reviewer: [email or web address] Initial Review Date: 08/04/2018 Generated: 08/04/18 11:07 am Comments DCP- Discharge Planning Updated by [email or web address]: Hanny Hoffmann on 08/04/18 9:[address] Patient Name: NARGIS CUELLO Admission Status: ER Accout number: [id number] Admission Date: 07-31-2018 : 1970 Admission Diagnosis:PNEUMONIA, UNSPECIFIED ORGANISM Attending: MEME QUEEN Current LOS: 4 Anticipated DC Date: 08-04-2018 Planned Disposition: Home Primary Insurance: [employer] EXCHANGE Discharge Planning Comments: CM met with patient to discuss discharge planning, she is alone in the room. She states she lives with her . She is independent with all ADL's and IADL's. Discussed the availability of rehab, SNF, home health services. States her discharge plan is to return home with her , he will provide transportation. Declines home health or additional DME needs at this time. CM will continue to follow and assist with discharge planning/needs. Paper Goods Machine Operator: Hanny Hoffmann DCPIA - Discharge Planning Initial Assessment Updated by [email or web address]: Hanny Hoffmann on 08/04/18 10:00 am * Is the patient Alert and Oriented? Yes * How many steps to enter\exit or inside your home? 0/0 * PCP Dr. Camejo * Pharmacy Budget * Preadmission Environment Home with Family * ADLs Independent * Equipment Bedside Commode Cane CPAP Nebulizer Other Oxygen Walker Wheelchair * List name and contact numbers for known caregivers / representatives who currently or will assist patient after discharge: Christelle [facility] - [phone] [facility] - [phone] * Verbal permission to speak to the caregivers and representatives has been obtained from the patient. Yes * Community resources currently utilized None * Please name any agencies selected above. DME company for oxygen, nebulizer and CPAP is [facility] * Additional services required to return to the preadmission environment? No * Can the patient safely return to the preadmission environment? Yes * Has this patient been hospitalized within the prior 30 days at any hospital? Yes Last DP export: 08/04/18 8:58 Patient Name: NARGIS CUELLO Page 36708 at 1007 All edits/amendments must be made on the electronic document DICTATION DATE: 08/04/18 100 PROGRAM AIDE: ERLIN 08/04/181005 RPT#: [id number] DC DATE: STATUS: ADM IN [facility] [address] [place] [address] END OF REPORT
--- NOTE | ~2018-07-31 | MORECARE ---
CASE MANAGEMENT DISCHARGE SUMMARY PATIENT: NARGIS CUELLO UNIT: [id number] ADM DATE: 07/31/18 AGE: 48 : [birth year] SEX: F ROOM/BED: D.2226 AUTHOR: MACK RAYA PHYSICIAN: REFERRING PHYSICIAN: MEME QUEEN MD DATE OF SERVICE: 08/04/18 Discharge Plan Patient Name: NARGIS CUELLO Facility: [facility]:[place] : 1970 Planned Disposition: Home Anticipated Discharge Date: 08/04/18 Discharge Date: Expected LOS: 4 Initial Reviewer: [email or web address] Initial Review Date: 08/04/2018 Generated: 08/04/18 10:58 am Patient Name: NARGIS CUELLO Page 38487 at 0958 All edits/amendments must be made on the electronic document DICTATION DATE: 08/04/18957 BLEND TECHNICIAN: ERLIN 08/04/18957 RPT#: [id number] DC DATE: STATUS: ADM IN [facility] [address] [place] [address] END OF REPORT
[2018-07-31 11:39] LABS: BASOPHILS 0.1 % (0-2); EOSINOPHILS 0 % (0-7); HEMATOCRIT 34.5 % (36.0-48.0); HEMOGLOBIN 11.8 g/dL (12-16); IMMATURE GRANULOCYTES 0.3 % (0-5); LYMPHOCYTES 4.6 % (15-50); MCH 31.8 pg (26.0-34.0); MCHC 34.2 g/dL (31.0-37.0); MONOCYTES 3.6 % (2-11); NEUTROPHILS 91.4 % (40-80); PLATELET COUNT 231 10x3/uL (130-400); RBC 3.71 10x6/uL (4.00-5.40); RDW 14.7 % (11.5-14.5); WBC 10.4 10x3/uL (4.8-10.8)
[2018-07-31 12:06] LABS: ALBUMIN 2.8 g/dL (3.4-5.0); ALKALINE PHOSPHATASE 105 U/L (46-116); ALT (SGPT) 21 U/L (10-68); BILIRUBIN - TOTAL 0.32 mg/dL (0.2-1.3); CALC OSMOLALITY 270 mosm/kg (275-300); CALCIUM 8.3 mg/dL (8.5-10.1); CARBON DIOXIDE 24.5 mmol/L (21.0-32.0); CHLORIDE - SERUM 99 mmol/L (98-107); CREATININE - SERUM 0.6 mg/dL (0.6-1.3); GLUCOSE 108 mg/dL (74-106); POTASSIUM - SERUM 3.6 mmol/L (3.5-5.1); PROTEIN - SERUM 6.9 g/dL (6.4-8.2); SODIUM 136 mmol/L (136-145); UREA NITROGEN 6 mg/dL (7-18); eGFR NON AFRICAN AMERICAN > 90 mL/min (90-120)
[2018-07-31 12:14] LABS: CKMB 2.7 U/L (0.0-3.6); PRO BNP 171 pg/mL (0-125); THYROID STIMULATING HORMONE 0.77 uIU/mL (0.36-3.74); TROPONIN-I < 0.017 ng/mL (0.000-0.060)
[2018-07-31 14:11] VITALS: BP 108/72; BMI 29.3
[2018-07-31 17:53] LABS: APPEARANCE CLEAR (CLEAR); BILIRUBIN NEGATIVE (NEGATIVE); COLOR YELLOW (YELLOW); GLUCOSE NEGATIVE (NEGATIVE); KETONE NEGATIVE (NEGATIVE); NITRITE NEGATIVE (NEGATIVE); PROTEIN NEGATIVE (NEGATIVE); UROBILINOGEN NORMAL (NORMAL)
[2018-07-31 20:02] VITALS: BP 99/53
[2018-08-01 00:24] VITALS: BP 99/56
[2018-08-01 04:49] LABS: BASOPHILS 0 % (0-2); EOSINOPHILS 0 % (0-7); HEMATOCRIT 32.7 % (36.0-48.0); HEMOGLOBIN 10.7 g/dL (12-16); IMMATURE GRANULOCYTES 0.1 % (0-5); LYMPHOCYTES 3.8 % (15-50); MCHC 32.7 g/dL (31.0-37.0); MCV 94.8 fL (80.0-100.0); MEAN PLATELET VOLUME 8.9 fL (7.4-10.4); MONOCYTES 2.4 % (2-11); NEUTROPHILS 93.7 % (40-80); PLATELET COUNT 231 10x3/uL (130-400); RBC 3.45 10x6/uL (4.00-5.40); RDW 14.8 % (11.5-14.5); WBC 8.1 10x3/uL (4.8-10.8)
[2018-08-01 04:56] VITALS: BP 110/68
[2018-08-01 05:11] LABS: ALBUMIN 2.2 g/dL (3.4-5.0); ALKALINE PHOSPHATASE 87 U/L (46-116); ALT (SGPT) 19 U/L (10-68); CALC OSMOLALITY 275 mosm/kg (275-300); CARBON DIOXIDE 26.2 mmol/L (21.0-32.0); CHLORIDE - SERUM 105 mmol/L (98-107); CREATININE - SERUM 0.5 mg/dL (0.6-1.3); GLUCOSE 140 mg/dL (74-106); MAGNESIUM - SERUM 1.8 mg/dL (1.8-2.4); PHOSPHOROUS 3.2 mg/dL (2.5-4.9); POTASSIUM - SERUM 3.9 mmol/L (3.5-5.1); PRO BNP 563 pg/mL (0-125); PROTEIN - SERUM 6.6 g/dL (6.4-8.2); SODIUM 138 mmol/L (136-145); TROPONIN-I < 0.017 ng/mL (0.000-0.060); UREA NITROGEN 8 mg/dL (7-18); eGFR NON AFRICAN AMERICAN > 90 mL/min (90-120)
[2018-08-01 09:10] VITALS: BP 105/61
[2018-08-01 12:59] VITALS: BP 100/65
[2018-08-01 14:23] VITALS: Ht 147.3 cm; Wt 63.5 kg
[2018-08-01 14:44] VITALS: BP 118/67
[2018-08-01 20:47] VITALS: BP 101/70
[2018-08-02 01:03] VITALS: BP 107/68
[2018-08-02 05:58] VITALS: BP 119/72
[2018-08-02 09:43] LABS: BASOPHILS 0 % (0-2); EOSINOPHILS 0 % (0-7); HEMATOCRIT 32.5 % (36.0-48.0); HEMOGLOBIN 10.7 g/dL (12-16); IMMATURE GRANULOCYTES 0.3 % (0-5); MCH 31.2 pg (26.0-34.0); MCHC 32.9 g/dL (31.0-37.0); MCV 94.8 fL (80.0-100.0); MEAN PLATELET VOLUME 8.8 fL (7.4-10.4); MONOCYTES 1.5 % (2-11); NEUTROPHILS 96.2 % (40-80); PLATELET COUNT 265 10x3/uL (130-400); RBC 3.43 10x6/uL (4.00-5.40); RDW 14.6 % (11.5-14.5); WBC 12.9 10x3/uL (4.8-10.8)
[2018-08-02 09:49] LABS: CALCIUM 8.2 mg/dL (8.5-10.1); CARBON DIOXIDE 28.8 mmol/L (21.0-32.0); CHLORIDE - SERUM 103 mmol/L (98-107); CREATININE - SERUM 0.5 mg/dL (0.6-1.3); SODIUM 140 mmol/L (136-145); UREA NITROGEN 9 mg/dL (7-18); eGFR NON AFRICAN AMERICAN > 90 mL/min (90-120)
[2018-08-02 09:51] LABS: CALC OSMOLALITY 282 mosm/kg (275-300); GLUCOSE 190 mg/dL (74-106); POTASSIUM - SERUM 3.3 mmol/L (3.5-5.1)
[2018-08-02 11:28] VITALS: BP 114/66
[2018-08-02 16:38] VITALS: BP 115/77
[2018-08-02 22:09] VITALS: BP 129/73
[2018-08-03] VITALS (8 sets, daily range): BP systolic 109–131; BP diastolic 58–77
[2018-08-03 06:06] LABS: BASOPHILS 0.1 % (0-2); EOSINOPHILS 0 % (0-7); HEMATOCRIT 31.5 % (36.0-48.0); HEMOGLOBIN 10.1 g/dL (12-16); IMMATURE GRANULOCYTES 0.7 % (0-5); MCH 30.8 pg (26.0-34.0); MCHC 32.1 g/dL (31.0-37.0); MEAN PLATELET VOLUME 8.9 fL (7.4-10.4); MONOCYTES 2.7 % (2-11); NEUTROPHILS 93.5 % (40-80); PLATELET COUNT 275 10x3/uL (130-400); RBC 3.28 10x6/uL (4.00-5.40); RDW 14.6 % (11.5-14.5); WBC 10.6 10x3/uL (4.8-10.8)
[2018-08-03 06:22] LABS: CALC OSMOLALITY 283 mosm/kg (275-300); CALCIUM 8.8 mg/dL (8.5-10.1); CARBON DIOXIDE 32.3 mmol/L (21.0-32.0); CHLORIDE - SERUM 104 mmol/L (98-107); CREATININE - SERUM 0.5 mg/dL (0.6-1.3); GLUCOSE 142 mg/dL (74-106); POTASSIUM - SERUM 3.4 mmol/L (3.5-5.1); SODIUM 142 mmol/L (136-145); UREA NITROGEN 10 mg/dL (7-18); eGFR NON AFRICAN AMERICAN > 90 mL/min (90-120)
[2018-08-04 00:18] VITALS: BP 116/71
[2018-08-04 04:29] VITALS: BP 143/82
[2018-08-04 05:17] LABS: BASOPHILS 0.2 % (0-2); EOSINOPHILS 0 % (0-7); HEMATOCRIT 31.6 % (36.0-48.0); HEMOGLOBIN 10.1 g/dL (12-16); IMMATURE GRANULOCYTES 1.5 % (0-5); MCH 30.7 pg (26.0-34.0); MEAN PLATELET VOLUME 9.3 fL (7.4-10.4); MONOCYTES 3.5 % (2-11); NEUTROPHILS 91.8 % (40-80); PLATELET COUNT 302 10x3/uL (130-400); RBC 3.29 10x6/uL (4.00-5.40); RDW 14.5 % (11.5-14.5)
[2018-08-04 05:41] LABS: CALC OSMOLALITY 279 mosm/kg (275-300); CALCIUM 8.6 mg/dL (8.5-10.1); CARBON DIOXIDE 30.9 mmol/L (21.0-32.0); CHLORIDE - SERUM 103 mmol/L (98-107); CREATININE - SERUM 0.5 mg/dL (0.6-1.3); GLUCOSE 134 mg/dL (74-106); POTASSIUM - SERUM 3.8 mmol/L (3.5-5.1); SODIUM 140 mmol/L (136-145); UREA NITROGEN 11 mg/dL (7-18); eGFR NON AFRICAN AMERICAN > 90 mL/min (90-120)
[2018-08-04 08:14] VITALS: BP 141/76
[2018-08-04 12:50] VITALS: BP 135/79
[2018-08-04 17:57] VITALS: BP 151/81
[2018-08-04 21:23] VITALS: BP 148/83
[2018-08-05 05:52] VITALS: BP 110/60
[2018-08-05 05:53] LABS: BASOPHILS 0.1 % (0-2); EOSINOPHILS 0 % (0-7); HEMATOCRIT 30.5 % (36.0-48.0); LYMPHOCYTES 4.2 % (15-50); MCH 30.8 pg (26.0-34.0); MCHC 32.8 g/dL (31.0-37.0); MEAN PLATELET VOLUME 8.9 fL (7.4-10.4); MONOCYTES 5.4 % (2-11); NEUTROPHILS 86.3 % (40-80); PLATELET COUNT 278 10x3/uL (130-400); RBC 3.25 10x6/uL (4.00-5.40); RDW 14.2 % (11.5-14.5); WBC 8.6 10x3/uL (4.8-10.8)
[2018-08-05 06:00] LABS: MCV 93.8 fL (80.0-100.0)
[2018-08-05 06:11] LABS: CALC OSMOLALITY 283 mosm/kg (275-300); CALCIUM 8.1 mg/dL (8.5-10.1); CARBON DIOXIDE 33.4 mmol/L (21.0-32.0); CHLORIDE - SERUM 103 mmol/L (98-107); CREATININE - SERUM 0.5 mg/dL (0.6-1.3); GLUCOSE 136 mg/dL (74-106); POTASSIUM - SERUM 3.4 mmol/L (3.5-5.1); SODIUM 142 mmol/L (136-145); UREA NITROGEN 10 mg/dL (7-18); eGFR NON AFRICAN AMERICAN > 90 mL/min (90-120)
[2018-08-05 08:01] VITALS: BP 135/71
[2018-08-05 17:41] VITALS: BP 132/78
[2018-08-05 22:38] VITALS: BP 114/72
[2018-08-06 01:06] VITALS: BP 130/68
[2018-08-06 06:31] VITALS: BP 134/95
[2018-08-06 06:40] LABS: HEMATOCRIT 36.3 % (36.0-48.0); HEMOGLOBIN 11.9 g/dL (12-16); MCH 30.7 pg (26.0-34.0); MCHC 32.8 g/dL (31.0-37.0); MCV 93.6 fL (80.0-100.0); MEAN PLATELET VOLUME 9.3 fL (7.4-10.4); RBC 3.88 10x6/uL (4.00-5.40); RDW 14.2 % (11.5-14.5)
[2018-08-06 06:41] LABS: CALC OSMOLALITY 281 mosm/kg (275-300); CALCIUM 7.9 mg/dL (8.5-10.1); CHLORIDE - SERUM 104 mmol/L (98-107); CREATININE - SERUM 0.5 mg/dL (0.6-1.3); GLUCOSE 90 mg/dL (74-106); POTASSIUM - SERUM 3.7 mmol/L (3.5-5.1); SODIUM 141 mmol/L (136-145); eGFR NON AFRICAN AMERICAN > 90 mL/min (90-120)
[2018-08-06 06:42] LABS: PLATELET COUNT 201 10x3/uL (130-400); WBC 5.6 10x3/uL (4.8-10.8)
[2018-08-06 06:47] LABS: UREA NITROGEN 15 mg/dL (7-18)
[2018-08-06 07:23] LABS: ANISOCYTOSIS OCC; LYMPHOCYTES 9 % (15-50); MONOCYTES 9 % (2-11); NEUTROPHILS 76 % (40-80); PLATELET ESTIMATE NORMAL
[2018-08-06 09:39] VITALS: BP 125/73
[2018-08-06] MEDS ORDERED: FEXOFENADINE HC60 MG PO (11:52)
[2018-08-06] MEDS ORDERED: ATROVENT 0.02%2.5 ML UPD (11:52)
[2018-08-06] MEDS ORDERED: BROVANA15 MCG/2 M INH (11:52)
[2018-08-06] MEDS ORDERED: FLUTICASONE PRO16 GM NASAL (11:53)
[2018-08-06] MEDS ORDERED: BENZONATATE200 MG PO (11:53)
[2018-08-06] MEDS ORDERED: XOPENEX 0.0.63 MG/3 UPD (11:53)
[2018-08-06] MEDS ORDERED: MUCINEX DM ER1 EAC1 PO (11:53)
[2018-08-06] MEDS ORDERED: PULMICORT0.5 MG/21 UPD (11:53)
[2018-08-06] MEDS ORDERED: DOXYCYCLINE HY100 M2 PO (11:54)
[2018-08-06] MEDS ORDERED: Nicoderm [PBKC] TRANSDERM (11:56)
[2018-08-06] MEDS ORDERED: [UNRECOGNIZED DRUG - OTHER] PO (11:56)
[2018-08-06] MEDS ORDERED: PREDNISONE10 MG PO (11:56)
[2018-08-06 12:43] VITALS: BP 132/80
== END 2018-08-06 15:01 | disposition home or self-care (01) | DRG 177 ==
LOC: D.ER 10:41 → D.EDHOLD 13:15 → D.MS 13:15 → D.SDCHOLD 08-03 16:56 → D.MS 08-03 16:57
PROVIDERS: Emergency Medicine; Internal Medicine Nephrology; Internal Medicine Pulmonary Disease
DX: J15.6 Pneumonia due to other Gram-negative bacteria (principal); J96.21 Acute and chronic respiratory failure with hypoxia; J44.0 Chronic obstructive pulmonary disease with (acute) lower respiratory infection; C34.90 Malignant neoplasm of unspecified part of unspecified bronchus or lung; J96.10 Chronic respiratory failure, unspecified whether with hypoxia or hypercapnia; J15.212 Pneumonia due to Methicillin resistant Staphylococcus aureus; K21.9 Gastro-esophageal reflux disease without esophagitis; I10 Essential (primary) hypertension; D64.9 Anemia, unspecified

== ENCOUNTER → 2018-09-25 08:34 | Outpatient (CLI) | payer BC ==
[2018-08-01 14:23] VITALS: BMI 29.2
[~2018-09-25 08:34] MED LIST changes: +ATROVENT 0.02%2.5 ML UPD; +BROVANA15 MCG/2 M INH; +DOXYCYCLINE HY100 M2 PO; +FEXOFENADINE HC60 MG PO; +FLUTICASONE PRO16 GM NASAL; +MUCINEX DM ER1 EAC1 PO; +Nicoderm [PBKC] TRANSDERM; +PREDNISONE10 MG PO; +PULMICORT0.5 MG/21 UPD; +XOPENEX 0.0.63 MG/3 UPD; +[UNRECOGNIZED DRUG - OTHER] PO
== END | disposition home or self-care (01) ==
LOC: D.RAD 08:34
DX: C34.90 Malignant neoplasm of unspecified part of unspecified bronchus or lung (principal)

== ENCOUNTER → 2018-10-21 10:28 | Outpatient (CLI) | payer BC ==
[2018-08-01 14:23] VITALS: BMI 29.2
[~2018-10-21 10:28] MED LIST changes: +Abilify PO; +IPRAT-ALBUT 0.5-3 ML UPD; +ZITHROMAX250 MG PO
== END | disposition home or self-care (01) ==
LOC: D.RT 09-07 11:00
DX: J44.9 Chronic obstructive pulmonary disease, unspecified (principal)

== ENCOUNTER 2018-10-28 16:27 | Inpatient (IN) | payer BC ==
[~2018-10-28] VITALS: Ht 147.3 cm; Wt 90.9 kg
[~2018-10-28 16:27] MED LIST changes: -Abilify PO; -IPRAT-ALBUT 0.5-3 ML UPD; -ZITHROMAX250 MG PO
[2018-10-28 18:34] LABS: BASOPHILS 0.1 % (0-2); EOSINOPHILS 0 % (0-7); HEMATOCRIT 35.5 % (36.0-48.0); HEMOGLOBIN 11.7 g/dL (12-16); IMMATURE GRANULOCYTES 0.4 % (0-5); LYMPHOCYTES 12.9 % (15-50); MCH 30.2 pg (26.0-34.0); MCV 91.7 fL (80.0-100.0); MEAN PLATELET VOLUME 8.6 fL (7.4-10.4); MONOCYTES 6.2 % (2-11); NEUTROPHILS 80.4 % (40-80); RBC 3.87 10x6/uL (4.00-5.40); WBC 7.2 10x3/uL (4.8-10.8)
[2018-10-28 18:38] LABS: PLATELET COUNT 304 10x3/uL (130-400)
[2018-10-28 18:55] LABS: ALBUMIN 3.1 g/dL (3.4-5.0); ALKALINE PHOSPHATASE 66 U/L (46-116); ALT (SGPT) 15 U/L (10-68); BILIRUBIN - TOTAL 0.21 mg/dL (0.2-1.3); CALC OSMOLALITY 279 mosm/kg (275-300); CALCIUM 8.4 mg/dL (8.5-10.1); CARBON DIOXIDE 28.6 mmol/L (21.0-32.0); CHLORIDE - SERUM 101 mmol/L (98-107); CREATININE - SERUM 0.6 mg/dL (0.6-1.3); GLUCOSE 119 mg/dL (74-106); PHOSPHOROUS 4.2 mg/dL (2.5-4.9); POTASSIUM - SERUM 3.9 mmol/L (3.5-5.1); PROTEIN - SERUM 7.2 g/dL (6.4-8.2); SODIUM 139 mmol/L (136-145); UREA NITROGEN 15 mg/dL (7-18); eGFR NON AFRICAN AMERICAN > 90 mL/min (90-120)
[2018-10-28 20:04] LABS: APPEARANCE CLEAR (CLEAR); BILIRUBIN NEGATIVE (NEGATIVE); COLOR YELLOW (YELLOW); GLUCOSE NEGATIVE (NEGATIVE); KETONE NEGATIVE (NEGATIVE); NITRITE NEGATIVE (NEGATIVE); PROTEIN NEGATIVE (NEGATIVE); UROBILINOGEN NORMAL (NORMAL)
[2018-10-29 00:36] VITALS: BP 124/74
[2018-10-29 05:52] LABS: BASOPHILS 0.2 % (0-2); EOSINOPHILS 0.8 % (0-7); HEMATOCRIT 33.4 % (36.0-48.0); HEMOGLOBIN 10.8 g/dL (12-16); IMMATURE GRANULOCYTES 0.8 % (0-5); LYMPHOCYTES 22.2 % (15-50); MCH 29.8 pg (26.0-34.0); MCHC 32.3 g/dL (31.0-37.0); MCV 92.3 fL (80.0-100.0); MEAN PLATELET VOLUME 8.6 fL (7.4-10.4); MONOCYTES 11.4 % (2-11); NEUTROPHILS 64.6 % (40-80); PLATELET COUNT 272 10x3/uL (130-400); RBC 3.62 10x6/uL (4.00-5.40); RDW 14.2 % (11.5-14.5)
[2018-10-29 06:18] LABS: ALBUMIN 2.8 g/dL (3.4-5.0); ALKALINE PHOSPHATASE 62 U/L (46-116); ALT (SGPT) 16 U/L (10-68); BILIRUBIN - TOTAL 0.17 mg/dL (0.2-1.3); CALCIUM 7.9 mg/dL (8.5-10.1); CARBON DIOXIDE 29.3 mmol/L (21.0-32.0); CHLORIDE - SERUM 104 mmol/L (98-107); CREATININE - SERUM 0.6 mg/dL (0.6-1.3); GLUCOSE 103 mg/dL (74-106); MAGNESIUM - SERUM 2.2 mg/dL (1.8-2.4); PROTEIN - SERUM 6.8 g/dL (6.4-8.2); SODIUM 142 mmol/L (136-145); eGFR NON AFRICAN AMERICAN > 90 mL/min (90-120)
[2018-10-29 06:34] LABS: CALC OSMOLALITY 281 mosm/kg (275-300); POTASSIUM - SERUM 3.2 mmol/L (3.5-5.1); UREA NITROGEN 11 mg/dL (7-18)
[2018-10-29 09:14] VITALS: BP 113/75
[2018-10-29 12:47] VITALS: BP 100/68
[2018-10-29 16:23] VITALS: BP 109/61
[2018-10-29 17:50] LABS: VANCOMYCIN - TROUGH 12.9 ug/mL (10.0-20.0)
[2018-10-29 18:20] LABS: POTASSIUM - SERUM 3.9 mmol/L (3.5-5.1)
[2018-10-29 21:11] VITALS: BP 91/65
[2018-10-30] VITALS (7 sets, daily range): BP systolic 91–121; BP diastolic 58–83; Ht 147.3 cm; Wt 90.9 kg
[2018-10-30 05:45] LABS: ALBUMIN 2.7 g/dL (3.4-5.0); ALKALINE PHOSPHATASE 54 U/L (46-116); ALT (SGPT) 18 U/L (10-68); CALC OSMOLALITY 285 mosm/kg (275-300); CALCIUM 8.1 mg/dL (8.5-10.1); CARBON DIOXIDE 31.4 mmol/L (21.0-32.0); CHLORIDE - SERUM 108 mmol/L (98-107); CREATININE - SERUM 0.7 mg/dL (0.6-1.3); GLUCOSE 93 mg/dL (74-106); MAGNESIUM - SERUM 2.3 mg/dL (1.8-2.4); POTASSIUM - SERUM 4.1 mmol/L (3.5-5.1); PROTEIN - SERUM 6.3 g/dL (6.4-8.2); SODIUM 143 mmol/L (136-145); eGFR NON AFRICAN AMERICAN > 90 mL/min (90-120)
[2018-10-30 05:47] LABS: UREA NITROGEN 15 mg/dL (7-18)
[2018-10-30 06:37] LABS: HEMATOCRIT 32.1 % (36.0-48.0); HEMOGLOBIN 10.6 g/dL (12-16); LYMPHOCYTES 20.8 % (15-50); MCH 31.2 pg (26.0-34.0); MCV 94.4 fL (80.0-100.0); MEAN PLATELET VOLUME 8.3 fL (7.4-10.4); NEUTROPHILS 64.5 % (40-80); PLATELET COUNT 268 10x3/uL (130-400); RDW 13.5 % (11.5-14.5); WBC 3.8 10x3/uL (4.8-10.8)
--- NOTE | 2018-10-30 15:18 | MORECARE ---
CASE MANAGEMENT DISCHARGE SUMMARY PATIENT: NARGIS CUELLO UNIT: [id number] ADM DATE: 10/28/18 AGE: 48 : [birth year] SEX: F ROOM/BED: D.2203 AUTHOR: MACK RAYA PHYSICIAN: REFERRING PHYSICIAN: MARISOL BETANCOURT MD DATE OF SERVICE: 10/30/18 Discharge Plan Patient Name: NARGIS CUELLO [facility] [facility] 1970 Planned Disposition: Home Anticipated Discharge Date: Discharge Date: Expected LOS: Initial Reviewer: [email or web address] Initial Review Date: 10/28/2018 Generated: 10/30/18 4:18 pm DCPIA - Discharge Planning Initial Assessment Updated by [email or web address]: Giovanna Nuno on 10/30/18 3:17 pm * Is the patient Alert and Oriented? Yes * How many steps to enter\exit or inside your home? * PCP [facility] * Pharmacy [place] * Preadmission Environment Home with Family * ADLs Independent * Equipment Nebulizer Oxygen * List name and contact numbers for known caregivers / representatives who currently or will assist patient after discharge: JAYDA LICEA (DAUGHTER) [phone] * Verbal permission to speak to the caregivers and representatives has been obtained from the patient. N/A * Community resources currently utilized None * Additional services required to return to the preadmission environment? No * Can the patient safely return to the preadmission environment? Yes * Has this patient been hospitalized within the prior 30 days at any hospital? No Patient Name: NARGIS CUELLO Page 04593 at 1518 All edits/amendments must be made on the electronic document DICTATION DATE: 10/30/181517 TRANSFER WORKER: ERLIN 10/30/181517 RPT#: [id number] DC DATE: STATUS: ADM IN [facility] [address] [place] [address] END OF REPORT
--- NOTE | 2018-10-30 15:30 | MORECARE ---
CASE MANAGEMENT DISCHARGE SUMMARY PATIENT: NARGIS CUELLO UNIT: [id number] ADM DATE: 10/28/18 AGE: 48 : 68 SEX: F ROOM/BED: D.2203 AUTHOR: DOROTA,DOC PHYSICIAN: REFERRING PHYSICIAN: MARISOL BETANCOURT MD DATE OF SERVICE: 10/30/18 Discharge Plan Patient Name: NARGIS CUELLO Facility: [facility]:[place] : 1970 Planned Disposition: Home Anticipated Discharge Date: Discharge Date: Expected LOS: Initial Reviewer: [email or web address] Initial Review Date: 10/28/2018 Generated: 10/30/18 4:30 pm Comments DCP- Discharge Planning Updated by [email or web address]: Giovanna Nuno on 10/30/18 2:[address] Patient Name: NARGIS CUELLO Admission Status: Urgent Accout number: [id number] Admission Date: 10-28-2018 : 1970 Admission Diagnosis: Attending: MARISOL BETANCOURT Current LOS: 2 Anticipated DC Date: Planned Disposition: Home Primary Insurance: [employer] EXCHANGE Discharge Planning Comments: CM met with patient to complete initial dc planning assessment. CM educated patient on the CM role and verbal consent given by patient to complete assessment. Patient lives at home with her where she is independent with her care. At discharge patient plans to return home and feels this is a safe discharge. CM discussed availability of home health, rehab services, and medical equipment. Her daughter will be her compactor driver home. Patient has a nebulizer and home o2 ( [facility] ) Patient denied known discharge needs at this time. CM will continue to follow and will assist as needed with dc plans/needs. Barback: Giovanna Nuno DCPIA - Discharge Planning Initial Assessment Updated by [email or web address]: Giovanna Nuno on 10/30/18 3:17 pm * Is the patient Alert and Oriented? Yes * How many steps to enter\exit or inside your home? * PCP [facility] * Pharmacy [place] * Preadmission Environment Home with Family * ADLs Independent * Equipment Nebulizer Oxygen * List name and contact numbers for known caregivers / representatives who currently or will assist patient after discharge: JAYDA LICEA (DAUGHTER) [phone] * Verbal permission to speak to the caregivers and representatives has been obtained from the patient. N/A * Community resources currently utilized None * Additional services required to return to the preadmission environment? No * Can the patient safely return to the preadmission environment? Yes * Has this patient been hospitalized within the prior 30 days at any hospital? No Last DP export: 10/30/18 2:18 p Patient Name: NARGIS CUELLO Page 11557 at 1530 All edits/amendments must be made on the electronic document DICTATION DATE: 10/30/181528 INSURANCE COUNSELOR: ERLIN 10/30/181528 RPT#: [id number] DC DATE: STATUS: ADM IN [facility] [address] [place] [address] END OF REPORT
[2018-10-31 05:15] VITALS: BP 82/51
[2018-10-31 07:28] LABS: BASOPHILS 0.2 % (0-2); EOSINOPHILS 2.5 % (0-7); HEMATOCRIT 36.3 % (36.0-48.0); HEMOGLOBIN 11.5 g/dL (12-16); IMMATURE GRANULOCYTES 0.9 % (0-5); LYMPHOCYTES 18.2 % (15-50); MCH 29.6 pg (26.0-34.0); MCHC 31.7 g/dL (31.0-37.0); MCV 93.6 fL (80.0-100.0); MEAN PLATELET VOLUME 8.6 fL (7.4-10.4); MONOCYTES 9.9 % (2-11); NEUTROPHILS 68.3 % (40-80); PLATELET COUNT 243 10x3/uL (130-400); RBC 3.88 10x6/uL (4.00-5.40); RDW 14.3 % (11.5-14.5)
[2018-10-31 07:32] LABS: WBC 5.6 10x3/uL (4.8-10.8)
[2018-10-31 07:46] LABS: ALBUMIN 3.2 g/dL (3.4-5.0); ALKALINE PHOSPHATASE 63 U/L (46-116); ALT (SGPT) 18 U/L (10-68); BILIRUBIN - TOTAL 0.25 mg/dL (0.2-1.3); CALC OSMOLALITY 275 mosm/kg (275-300); CALCIUM 8.8 mg/dL (8.5-10.1); CHLORIDE - SERUM 100 mmol/L (98-107); CREATININE - SERUM 0.6 mg/dL (0.6-1.3); GLUCOSE 101 mg/dL (74-106); MAGNESIUM - SERUM 2.1 mg/dL (1.8-2.4); POTASSIUM - SERUM 4.1 mmol/L (3.5-5.1); PROTEIN - SERUM 7.5 g/dL (6.4-8.2); SODIUM 138 mmol/L (136-145); UREA NITROGEN 12 mg/dL (7-18); eGFR NON AFRICAN AMERICAN > 90 mL/min (90-120)
[2018-10-31 09:00] VITALS: BP 109/69
[2018-10-31 13:40] VITALS: BP 106/74
[2018-10-31 18:20] VITALS: BP 110/72
[2018-10-31 21:41] VITALS: BP 87/59
[2018-11-01 04:24] VITALS: BP 90/59
[2018-11-01 07:10] LABS: ALBUMIN 2.7 g/dL (3.4-5.0); ALKALINE PHOSPHATASE 58 U/L (46-116); ALT (SGPT) 20 U/L (10-68); BILIRUBIN - TOTAL 0.27 mg/dL (0.2-1.3); CALC OSMOLALITY 284 mosm/kg (275-300); CALCIUM 8.2 mg/dL (8.5-10.1); CARBON DIOXIDE 29.9 mmol/L (21.0-32.0); CHLORIDE - SERUM 105 mmol/L (98-107); CREATININE - SERUM 0.6 mg/dL (0.6-1.3); GLUCOSE 85 mg/dL (74-106); MAGNESIUM - SERUM 2.3 mg/dL (1.8-2.4); POTASSIUM - SERUM 4.1 mmol/L (3.5-5.1); PROTEIN - SERUM 6.6 g/dL (6.4-8.2); SODIUM 143 mmol/L (136-145); eGFR NON AFRICAN AMERICAN > 90 mL/min (90-120)
[2018-11-01 07:13] LABS: UREA NITROGEN 16 mg/dL (7-18)
[2018-11-01 07:16] LABS: BASOPHILS 0.3 % (0-2); EOSINOPHILS 5.6 % (0-7); HEMATOCRIT 33.7 % (36.0-48.0); HEMOGLOBIN 10.6 g/dL (12-16); IMMATURE GRANULOCYTES 0.6 % (0-5); LYMPHOCYTES 19.6 % (15-50); MCHC 31.5 g/dL (31.0-37.0); MCV 95.5 fL (80.0-100.0); MEAN PLATELET VOLUME 8.7 fL (7.4-10.4); MONOCYTES 16.8 % (2-11); NEUTROPHILS 57.1 % (40-80); PLATELET COUNT 248 10x3/uL (130-400); RBC 3.53 10x6/uL (4.00-5.40); RDW 14.3 % (11.5-14.5); WBC 3.2 10x3/uL (4.8-10.8)
[2018-11-01 09:40] VITALS: BP 110/70
[2018-11-01] MEDS ORDERED: Nicoderm [PBKC] TRANSDERM (12:44)
[2018-11-01] MEDS ORDERED: PREDNISONE10 MG PO (12:45)
[2018-11-01] MEDS ORDERED: ZITHROMAX250 MG PO (12:45)
[2018-11-01] MEDS ORDERED: LEVAQUIN750 MG PO (12:45)
[2018-11-01] MEDS ORDERED: IPRAT-ALBUT 0.5-3 ML UPD (12:46)
[2018-11-01] MEDS ORDERED: BROVANA15 MCG/2 M INH (12:46)
[2018-11-01] MEDS ORDERED: Abilify PO (12:46)
--- NOTE | 2018-11-01 12:59 | MORECARE ---
CASE MANAGEMENT DISCHARGE SUMMARY PATIENT: NARGIS CUELLO UNIT: [id number] ADM DATE: 10/28/18 AGE: 48 : 68 SEX: F ROOM/BED: D.2203 AUTHOR: DOROTA,DOC PHYSICIAN: REFERRING PHYSICIAN: MARISOL BETANCOURT MD DATE OF SERVICE: 11/01/18 Discharge Plan Patient Name: NARGIS CUELLO Facility: [facility]:[place] : 1970 Planned Disposition: Home Anticipated Discharge Date: 11/01/18 Discharge Date: Expected LOS: 4 Initial Reviewer: [email or web address] Initial Review Date: 10/28/2018 Generated: 11/01/18 1:59 pm Comments DCP- Discharge Planning Updated by [email or web address]: Kyra Roche on 11/01/18 11:[address] Patient Name: NARGIS CUELLO Encounter No: [id number] : 1970 Primary Insurance: [employer] Anticipated DC Date: 11-01-2018 Planned Disposition: Home External Planned Provider: : DCP follow-up note: Patient and family in agreement with discharge plan. No changes to plan. Case management will follow and assist as needed. Kyra Roche DCP- Discharge Planning Updated by [email or web address]: Giovanna Nuno on 10/30/18 2:[address] Patient Name: NARGIS CUELLO Admission Status: Urgent Accout number: [id number] Admission Date: 10-28-2018 : 1970 Admission Diagnosis: Attending: MARISOL BETANCOURT Current LOS: 2 Anticipated DC Date: Planned Disposition: Home Primary Insurance: [employer] EXCHANGE Discharge Planning Comments: CM met with patient to complete initial dc planning assessment. CM educated patient on the CM role and verbal consent given by patient to complete assessment. Patient lives at home with her where she is independent with her care. At discharge patient plans to return home and feels this is a safe discharge. CM discussed availability of home health, rehab services, and medical equipment. Her daughter will be her compactor driver home. Patient has a nebulizer and home o2 ( [place] home patient ) Patient denied known discharge needs at this time. CM will continue to follow and will assist as needed with dc plans/needs. Installation Helper: Giovanna Nuno DCPIA - Discharge Planning Initial Assessment Updated by [email or web address]: Giovanna Nuno on 10/30/18 3:17 pm * Is the patient Alert and Oriented? Yes * How many steps to enter\exit or inside your home? * PCP BELLA * [facility] * Preadmission Environment Home with Family * ADLs Independent * Equipment Nebulizer Oxygen * List name and contact numbers for known caregivers / representatives who currently or will assist patient after discharge: JAYDA LICEA (DAUGHTER) [phone] * Verbal permission to speak to the caregivers and representatives has been obtained from the patient. N/A * Community resources currently utilized None * Additional services required to return to the preadmission environment? No * Can the patient safely return to the preadmission environment? Yes * Has this patient been hospitalized within the prior 30 days at any hospital? No Last DP export: 10/30/18 2:30 p Patient Name: NARGIS CUELLO Page 24107 at 1259 All edits/amendments must be made on the electronic document DICTATION DATE: 11/01/18 1258 ALMOND BLANCHER HAND: ERLIN 11/01/18 1258 RPT#: [id number] [place] DATE: STATUS: ADM IN [facility] [address] [place] [address] END OF REPORT
[2018-11-01 14:15] VITALS: BP 124/90
--- NOTE | 2018-11-03 17:05 | MORECARE ---
CASE MANAGEMENT DISCHARGE SUMMARY PATIENT: NARGIS CUELLO UNIT: [id number] ADM DATE: 10/28/18 AGE: 48 : 68 SEX: F ROOM/BED: D.2203 AUTHOR: DOROTA,DOC PHYSICIAN: REFERRING PHYSICIAN: MARISOL BETANCOURT MD DATE OF SERVICE: 11/03/18 Discharge Plan Patient Name: NARGIS CUELLO Facility: [facility]:[place] : 1970 Planned Disposition: Home Anticipated Discharge Date: 11/01/18 Discharge Date: 11/01/2018 Expected LOS: 4 Initial Reviewer: [email or web address] Initial Review Date: 10/28/2018 Generated: 11/03/18 6:04 pm Comments DCP- Discharge Planning Updated by [email or web address]: Kyra Roche on 11/01/18 11:[address] Patient Name: NARGIS CUELLO Encounter No: [id number] : 1970 Primary Insurance: [employer] Anticipated DC Date: 11-01-2018 Planned Disposition: Home External Planned Provider: : DCP follow-up note: Patient and family in agreement with discharge plan. No changes to plan. Case management will follow and assist as needed. Kyra Roche DCP- Discharge Planning Updated by [email or web address]: Giovanna Nuno on 10/30/18 2:[address] Patient Name: NARGIS CUELLO Admission Status: Urgent Accout number: [id number] Admission Date: 10-28-2018 : 1970 Admission Diagnosis: Attending: MARISOL BETANCOURT Current LOS: 2 Anticipated DC Date: Planned Disposition: Home Primary Insurance: [employer] EXCHANGE Discharge Planning Comments: CM met with patient to complete initial dc planning assessment. CM educated patient on the CM role and verbal consent given by patient to complete assessment. Patient lives at home with her where she is independent with her care. At discharge patient plans to return home and feels this is a safe discharge. CM discussed availability of home health, rehab services, and medical equipment. 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 Patient has a nebulizer and home o2 ( [place] home patient ) Patient denied known discharge needs at this time. CM will continue to follow and will assist as needed with dc plans/needs. Supervisor Plastering: Giovanna Nuno DCPIA - Discharge Planning Initial Assessment Updated by [email or web address]: Giovanna Nuno on 10/30/18 3:17 pm * Is the patient Alert and Oriented? Yes * How many steps to enter\exit or inside your home? * PCP BELLA * Pharmacy [facility] * Preadmission Environment Home with Family * ADLs Independent * Equipment Nebulizer Oxygen * List name and contact numbers for known caregivers / representatives who currently or will assist patient after discharge: JAYDA LICEA (DAUGHTER) [phone] * Verbal permission to speak to the caregivers and representatives has been obtained from the patient. N/A * Community resources currently utilized None * Additional services required to return to the preadmission environment? No * Can the patient safely return to the preadmission environment? Yes * Has this patient been hospitalized within the prior 30 days at any hospital? No Last DP export: 11/01/18 11:59 a Patient Name: NARGIS CUELLO Page 26812 at 1705 All edits/amendments must be made on the electronic document DICTATION DATE: 11/03/181703 STEAMTABLE WORKER: ERLIN 11/03/181703 RPT#: [id number] DC DATE:11/01/18 STATUS: DIS IN [facility] [address] [place] [address] END OF REPORT
[2018-11-06 15:17] LABS: AEROBE ID Preliminary report (()); RESULT 1 Gram negative rods (())
== END 2018-11-01 15:30 | disposition home or self-care (01) | DRG 190 ==
LOC: D.MS 16:27 → D.SDCHOLD 16:27 → D.MS 17:00
PROVIDERS: Family Medicine Adult Medicine; Internal Medicine Pulmonary Disease; ADMIT Family Medicine
DX: J44.1 Chronic obstructive pulmonary disease with (acute) exacerbation (principal); J11.00 Influenza due to unidentified influenza virus with unspecified type of pneumonia; J18.9 Pneumonia, unspecified organism; C34.90 Malignant neoplasm of unspecified part of unspecified bronchus or lung; J96.11 Chronic respiratory failure with hypoxia; Z68.41 Body mass index [BMI] 40.0-44.9, adult; K21.9 Gastro-esophageal reflux disease without esophagitis; I15.9 Secondary hypertension, unspecified

== ENCOUNTER → 2018-12-29 09:08 | Outpatient (CLI) | payer BC ==
[2018-10-30 07:01] VITALS: BMI 41.8
[~2018-12-29 09:08] MED LIST changes: +Abilify PO; +IPRAT-ALBUT 0.5-3 ML UPD; +ZITHROMAX250 MG PO
== END | disposition home or self-care (01) ==
LOC: D.RAD 09:08
PROVIDERS: ATTEND Internal Medicine Hematology & Oncology
DX: C34.90 Malignant neoplasm of unspecified part of unspecified bronchus or lung (principal)

== ENCOUNTER 2019-03-02 18:34 | Inpatient (IN) | payer BC ==
[~2019-03-02] VITALS: Ht 147.3 cm; Wt 74.1 kg
[2019-03-02] MEDS ORDERED: DOXYCYCLINE HY100 M2 PO (18:44)
[2019-03-02 20:17] LABS: APTT 25.4 SECONDS (22.8-39.4); INR 1.04 (0.85-1.17); PROTIME 13.1 SECONDS (11.6-15.0)
[2019-03-02 20:22] LABS: ALBUMIN 3.2 g/dL (3.4-5.0); ALKALINE PHOSPHATASE 89 U/L (46-116); ALT (SGPT) 27 U/L (10-68); BILIRUBIN - TOTAL 0.37 mg/dL (0.2-1.3); CALC OSMOLALITY 275 mosm/kg (275-300); CARBON DIOXIDE 30.6 mmol/L (21.0-32.0); CHLORIDE - SERUM 99 mmol/L (98-107); CREATININE - SERUM 0.8 mg/dL (0.6-1.3); POTASSIUM - SERUM 4.2 mmol/L (3.5-5.1); SODIUM 138 mmol/L (136-145); UREA NITROGEN 7 mg/dL (7-18); eGFR NON AFRICAN AMERICAN 80 mL/min (90-120)
[2019-03-02 20:26] LABS: GLUCOSE 134 mg/dL (74-106)
[2019-03-02 20:35] LABS: CKMB 2.4 U/L (0.0-3.6); CREATINE KINASE 128 UL (21-215); PRO BNP 449 pg/mL (0-125)
[2019-03-02 20:36] LABS: BASOPHILS 0.1 % (0-2); EOSINOPHILS 0.1 % (0-7); HEMATOCRIT 36.3 % (36.0-48.0); HEMOGLOBIN 11.5 g/dL (12-16); IMMATURE GRANULOCYTES 0.3 % (0-5); LYMPHOCYTES 3.9 % (15-50); MCHC 31.7 g/dL (31.0-37.0); MCV 88.3 fL (80.0-100.0); MEAN PLATELET VOLUME 8.9 fL (7.4-10.4); MONOCYTES 4.1 % (2-11); NEUTROPHILS 91.5 % (40-80); RBC 4.11 10x6/uL (4.00-5.40); RDW 14.5 % (11.5-14.5); WBC 14.7 10x3/uL (4.8-10.8)
[2019-03-02 20:42] LABS: PLATELET COUNT 304 10x3/uL (130-400)
[2019-03-02 20:46] LABS: TROPONIN-I < 0.017 ng/mL (0.000-0.060)
[2019-03-02 21:00] VITALS: BP 132/78
--- NOTE | 2019-03-02 21:18 | NUR ---
STOP TIME ON ZOSYN 3.375 IS 2044, STOP TIME ON LR 2099 WHEN PT TRANSFERED TO ICU
[2019-03-02 22:00] VITALS: BP 136/84
--- NOTE | 2019-03-02 22:25 | NUR ---
REPORT REC'D. PT AOX4, BRUISING AND SORES NOTED TO RT SIDE OF FOREHEAD AND RT EYE. PUPILS REACTIVE AND EQUAL. EQUAL H[employer]OL LIBRARIAN, MOVES EXTREMITIES X4 AGAINST GRAVITY. SINUS TACH ON MONITOR, 132. PERIPHERAL PULSES PRESENT. DIMINISHED LUNG SOUNDS, DYSPNEA PRESENT. PT C/O PAIN WHILE COUGHING, DRY HACKING COUGH. 4L O2 VIA NC, SPO2 96. BOWEL SOUNDS PRESENT IN ALL QUADRANTS. HOB @ 40 DEGREES. FRESH WATER AT BEDSIDE. DENIES NEEDS AT THIS TIME. CALL LIGHT AND BEDSIDE TABLE WITHIN PT REACH. CPOC.
--- NOTE | 2019-03-02 22:45 | NUR ---
JANI PAGED PER ORDERS TO CONSULT
--- NOTE | 2019-03-02 22:58 | NUR ---
CALLBACK REC'D FROM JANI, NO NEW ORDERS AT THIS TIME.
[2019-03-02 23:00] VITALS: BP 137/73
--- NOTE | 2019-03-02 23:00 | NUR ---
RON PAGED PER ORDERS TO CONSULT
--- NOTE | 2019-03-02 23:05 | NUR ---
REC'D CALLBACK FROM RON, NO NEW ORDERS AT THIS TIME
[2019-03-02 23:13] VITALS: BP 137/73; BMI 33.5
--- NOTE | 2019-03-02 23:40 | NUR ---
20G RT HAND PIV ESTABLISHED, UNABLE TO ACCESS IMPLANTED CHEST PORT.
[2019-03-03] VITALS (14 sets, daily range): BP systolic 107–135; BP diastolic 63–85; BMI 33.4
--- NOTE | 2019-03-03 01:00 | NUR ---
PT RESTING QUIETLY AT THIS TIME. REPOSITIONS SELF INDEPENDENTLY. HR TRENDING DOWN, CURRENTLY 120. SPO2 98, HOB @ 40 DEGREES. PT DENIES NEEDS AT THIS TIME. CALL LIGHT AND BEDSIDE TABLE WITHIN PT REACH. CPOC.
--- NOTE | 2019-03-03 03:00 | NUR ---
REASSESSMENT COMPLETE, SEE FLOWSHEET FOR ALL CHANGES. PARTIAL LINEN CHANGE PROVIDED. PT REPOSITIONED FOR COMFORT WITH MINIMAL ASSISTANCE. FRESH WATER TO BEDSIDE. DENIES NEEDS AT THIS TIME. CALL LIGHT AND BEDSIDE TABLE WITHIN PT REACH. CPOC.
[2019-03-03 04:34] LABS: BASOPHILS 0.1 % (0-2); EOSINOPHILS 0 % (0-7); HEMATOCRIT 33.9 % (36.0-48.0); HEMOGLOBIN 10.9 g/dL (12-16); IMMATURE GRANULOCYTES 0.4 % (0-5); LYMPHOCYTES 3.5 % (15-50); MCH 28.4 pg (26.0-34.0); MCHC 32.2 g/dL (31.0-37.0); MCV 88.3 fL (80.0-100.0); MEAN PLATELET VOLUME 8.9 fL (7.4-10.4); MONOCYTES 1.4 % (2-11); NEUTROPHILS 94.6 % (40-80); PLATELET COUNT 324 10x3/uL (130-400); RBC 3.84 10x6/uL (4.00-5.40); RDW 14.6 % (11.5-14.5); WBC 16.7 10x3/uL (4.8-10.8)
[2019-03-03 04:53] LABS: ALKALINE PHOSPHATASE 93 U/L (46-116); ALT (SGPT) 30 U/L (10-68); CHLORIDE - SERUM 101 mmol/L (98-107); CREATININE - SERUM 0.6 mg/dL (0.6-1.3); MAGNESIUM - SERUM 2.1 mg/dL (1.8-2.4); PHOSPHOROUS 4.1 mg/dL (2.5-4.9); POTASSIUM - SERUM 3.9 mmol/L (3.5-5.1); PROTEIN - SERUM 7.7 g/dL (6.4-8.2); SODIUM 139 mmol/L (136-145); UREA NITROGEN 6 mg/dL (7-18); eGFR NON AFRICAN AMERICAN > 90 mL/min (90-120)
[2019-03-03 04:54] LABS: CALC OSMOLALITY 280 mosm/kg (275-300); GLUCOSE 193 mg/dL (74-106)
--- NOTE | 2019-03-03 05:00 | NUR ---
PT HAD SMALL FORMED BM, PT CLEANED AND PARTIAL LINEN CHANGE PROVIDED. REPOSITIONED FOR COMFORT WITH MINIMAL ASSISTANCE. COFFEE TO BEDSIDE PER REQUEST. DENIES FURTHER NEEDS AT THIS TIME. CALL LIGHT WITHIN PT REACH. CPOC. .
--- NOTE | 2019-03-03 07:00 | NUR ---
SHIFT ASSESSMENT COMPLETED, PT CARE ASSUMED, MONITORS ON AND WORKING, VITALS STABLE, PT AWAKE AND ALERT SITTING UP IN BED WATCHING TELEVISION, CALL LIGHT WTIHIN REACH, SEE FLOW SHEET FOR FURTHER DETAILS. WILL CONTINUE TO OBSERVE.
--- NOTE | 2019-03-03 09:00 | NUR ---
FAMILY AT BEDSIDE, UPDATE PROVIDED, PT TAKES MEDS PO WITHOUT DIFFICULTY, PT HAS FREQUENT CHRONIC DRY COUGH, PT AWAKE AND ALERT, MONITORS ON AND WORKING, VITALS STABLE, NO SIGNS/SYMPTOMS OF PAIN OR DISCOMFORT NOTED. CALL LIGHT WITHIN REACH, WILL CONTINUE TO OBSERVE.
--- NOTE | 2019-03-03 11:00 | NUR ---
PT SITTING UP IN BED, AWAKE AND ALERT, MONITORS ON AND WORKING, VITALS STABLE, NO FURTHER CHANGES, SEE FLOW SHEET FOR FURTHER DEETIALS, WILL CONTINUE TO OBSERVE.
--- NOTE | 2019-03-03 12:00 | NUR ---
VASCULAR ACCESS NURSE ACCESSED PTS IMPLANTED PORT IN LEFT CHEST WALL WITH 1.5IN NEEDLE, PORT FLUSHES WELL, DRESSING CDI, REC'D ORDERS TO TRANSFER PT TO FLOOR WHEN ROOM BECOMES AVAILABLE, MONITORS ON AND WORKING, VITALS STABLE, NO SIGNS/SYMPTOMS OF PAIN OR DISCOMFORT NOTED AT THIS TIME. CALL LIGHT WITHIN REACH WILL CONTINUE TO OBSERVE.
--- NOTE | 2019-03-03 18:07 | CN ---
PATIENT NAME:NARGIS CUELLO MEDICAL RECORD: [id number] : 68 LOCATION:D.[id number] ADMIT DATE: 03/02/19 ACCOUNT: [id number] CONSULTING PHYSICIAN: AUSTIN PANIAGUA MD REFERRING PHYSICIAN: JUMA MOORE MD DATE OF CONSULTATION: 03/03/2019 DIAGNOSES: 1. Syncope. 2. COPD. 3. Bronchitis. 4. Tachycardia. 5. Lung cancer. 6. Smoking history. HISTORY OF PRESENT ILLNESS: Mrs. Cuello was admitted with COPD exacerbation, worsening of shortness of breath, tachycardia, and episode of syncope. The syncope was while she was coughing; however, she has had multiple coughing episodes in the past and not had syncope. She is quite tachycardic with heart rates in the 110-120 range. Her beta agonists have been removed. She remains tachycardic. Her systolic blood pressure is in the 130 range. PHYSICAL EXAMINATION: GENERAL APPEARANCE: Well-nourished, well-developed, appears stated age. Level of distress, comfortable. PSYCHIATRIC: Mental status, alert, normal affect. Orientation, oriented to time, place and person. EYES: Lids and conjunctiva, noninjected. No discharge, no pallor. ENT: Lips, teeth, gums, normal dentition. Oropharynx, no cyanosis, no pallor. NECK: Carotid arteries, bilateral normal upstroke, no bruits, no thrills. JUGULAR VEINS: No jugular venous pressure or distention. CERVICAL LYMPH NODES: Nontender, nonenlarged. THYROID: Not enlarged. Nontender. No nodules. LUNGS: Respiratory effort, unlabored. CHEST: Normal curvature. No thoracic deformity. No chest wall tenderness. Percussion, resonant. Auscultation, clear. No wheezes, no rales, no rhonchi. CARDIOVASCULAR: Precordial exam, nondisplaced. No heaves or pericardial thrills. Rate and rhythm, regular. Heart sounds, normal S1, normal S2. No S3, no gallop, no rub. Systolic murmur, not heard. Diastolic murmur, not heard. EXTREMITIES: No cyanosis, no edema. Peripheral pulses, full and equal in all extremities, except as noted. No bruits appreciated. ABDOMEN: Soft, nondistended. Normal aorta. No bruit. Nontender. No masses. Liver, nontender, no hepatomegaly. Spleen, nontender, no splenomegaly. MUSCULOSKELETAL: No joint tenderness. No joint swelling. No erythema. NEUROLOGICAL: Normal gait, normal strength, normal tone. SKIN: Warm and dry. OVERALL IMPRESSION: Syncope. Her last cardiac echo was overall normal and that was 2 years ago. We will repeat echocardiogram. We will start her on Bystolic 5 mg b.i.d. as her blood pressure tolerates it to prevent the tachycardia. TRANSINT:[id number] Voice Confirmation ID: [id number] DOCUMENT ID: [id number] CONSULT REPORT [id number] NARGIS CUELLO, AUSTIN MENDOZA at 1807 CC: [id number] DICTATION DATE: 03/03/191655 SEAMER OPERATOR: 03/03/[address] [facility] [address] [place] [address]
--- NOTE | 2019-03-03 20:00 | NUR ---
ALERT RESTING IN BED, SEE SHIFT ASSESSMENT CALL LIGHT IN REACH
[2019-03-04] VITALS (16 sets, daily range): BP systolic 70–136; BP diastolic 41–90; Ht 147.3 cm; Wt 74.1 kg
--- NOTE | 2019-03-04 04:45 | NUR ---
SITTING UP IN BED COUGHHING, UNABLE TO CATCH BREATH, COUGH MED GIVEN, COUGHING EASED ENCOURAGED TO TRY TO TAKE DEEP BREATHS STATES IM TRYING WONT GO ANYWHERE, O2 SAT AT 81% ON 14 L, RT NOTIFIED FOR PRN TX
--- NOTE | 2019-03-04 05:15 | NUR ---
RAPID RESPONSE CALLED AT 0509 DUE TO PT CONTINUES TO HAVE LABORED RESPIRATIONS WITH O2 SAT DROPING DOWN TO 76% WITH O2 PER N/C AT 15L, RESPONSE TEAM ARRIIVED SEE RAPID RESPONSE RECORD
[2019-03-04 05:55] LABS: ALBUMIN 2.7 g/dL (3.4-5.0); ALKALINE PHOSPHATASE 91 U/L (46-116); BILIRUBIN - TOTAL 0.28 mg/dL (0.2-1.3); CALCIUM 8.4 mg/dL (8.5-10.1); CARBON DIOXIDE 27.9 mmol/L (21.0-32.0); CHLORIDE - SERUM 102 mmol/L (98-107); GLUCOSE 195 mg/dL (74-106); PHOSPHOROUS 3.8 mg/dL (2.5-4.9); POTASSIUM - SERUM 3.7 mmol/L (3.5-5.1); PROTEIN - SERUM 6.6 g/dL (6.4-8.2); SODIUM 140 mmol/L (136-145)
[2019-03-04 05:58] LABS: ALT (SGPT) 43 U/L (10-68); CALC OSMOLALITY 282 mosm/kg (275-300); CREATININE - SERUM 0.8 mg/dL (0.6-1.3); UREA NITROGEN 9 mg/dL (7-18); eGFR NON AFRICAN AMERICAN 80 mL/min (90-120)
[2019-03-04 07:14] LABS: HEMOGLOBIN 10.1 g/dL (12-16); MCHC 31.6 g/dL (31.0-37.0); MCV 88.6 fL (80.0-100.0); MEAN PLATELET VOLUME 9.2 fL (7.4-10.4); PLATELET COUNT 298 10x3/uL (130-400); RBC 3.61 10x6/uL (4.00-5.40); RDW 14.7 % (11.5-14.5); WBC 16.7 10x3/uL (4.8-10.8)
--- NOTE | 2019-03-04 07:45 | NUR ---
TO ROOM TO MEET PT. SHE IS SHORT OF BREATH AND COUGHING. 02 SATS DROPPED TO 76% ON 14 LITERS HIGH FLOW CANULA. RAPID REDPONCE CALLED,SEE RAPID SHEET.ASSESSMENT PER FLOW SHEET.
[2019-03-04 08:14] LABS: ANISOCYTOSIS OCC; LYMPHOCYTES 5 % (15-50); MONOCYTES 4 % (2-11); NEUTROPHILS 88 % (40-80); PLATELET ESTIMATE NORMAL
--- NOTE | 2019-03-04 08:15 | NUR ---
REPORT CALLED DEANA IN ICU. PT WILL GO BED [id number]
--- NOTE | 2019-03-04 08:39 | NUR ---
TO ICU VIA BED WITH ASSIST OF RT
--- NOTE | 2019-03-04 08:40 | NUR ---
DR VELASQUEZ ON UNIT INFORMED OF PT TRANSFER TO ICU
--- NOTE | 2019-03-04 09:00 | NUR ---
REC'D PT FROM RAPID RESPONSE ON FLOOR, PT AWAKE AND ALERT, TRANSFER SELF TO ICU BED, MONITORS ON AND WORKING, VITALS KENNY, 02 COMES UP TO LOW 90'S WHEN PT IS AT REST, CALL LIGHT WITHIN REACH WILL CONTINUE TO OBSERVE.
--- NOTE | 2019-03-04 11:00 | NUR ---
PT SITTING UP IN BED, AWAKE AND ALERT, PT ON 15L HIGH FLOW NC, 02 REMAINS ABOVE 90%. FAMILY AT BEDSIDE, SEE FLOW SHEET FOR FURTHER DETIALS, WILL CONTINUE TO OBSERVE.
--- NOTE | 2019-03-04 13:00 | NUR ---
NO CHNAGES, PT AWAKE AND ALERT, MONITORS ON AND WORKING, VITALS STABLE. CALL LIGHT WITHIN REACH, WILL CONTINUE TO OBSERVE.
--- NOTE | 2019-03-04 15:00 | NUR ---
NO CHANGES, SEE FLOW SHEET FOR FURTHER DETIALS. WILL CONTINUE TO OBSERVE.
--- NOTE | 2019-03-04 16:35 | MORECARE ---
CASE MANAGEMENT DISCHARGE SUMMARY PATIENT: NARGIS CUELLO UNIT: [id number] ADM DATE: 03/02/19 AGE: 49 : 68 SEX: F ROOM/BED: D.2306 AUTHOR: DOROTA,DOC PHYSICIAN: REFERRING PHYSICIAN: JUMA MOORE MD DATE OF SERVICE: 03/04/19 Discharge Plan Patient Name: NARGIS CUELLO Facility: [facility]:[place] : 1970 Planned Disposition: Home Anticipated Discharge Date: Discharge Date: Expected LOS: Initial Reviewer: [email or web address] Initial Review Date: 03/04/2019 Generated: 03/04/19 5:35 pm Comments DCP- Discharge Planning Updated by [email or web address]: Pati Bustos on 03/04/19 3:[address] Patient Name: NARGIS CUELLO Admission Status: ER Accout number: [id number] Admission Date: 03-02-2019 : 1970 Admission Diagnosis: Attending: JUMA OMORE Current LOS: 2 Anticipated DC Date: Planned Disposition: Home Primary Insurance: [employer] EXCH[employer] Discharge Planning Comments: CM met with patient to complete initial dc planning assessment. CM educated patient on the CM role and verbal consent given by patient to complete assessment. Patient lives at home with her where she is independent with her care. At discharge patient plans to return home and feels this is a safe discharge. CM discussed availability of home health, rehab services, and medical equipment. Patient states she will have her family drive her home. Patient has a nebulizer, home o2 and CPAP ( [place] home patient ). Patient states that she has a walker and cane if needed that was her mother's. Patient denied known discharge needs at this time. CM will continue to follow and will assist as needed with dc plans/needs. Content Analyst: Pati Bustos DCPIA - Discharge Planning Initial Assessment Updated by [email or web address]: Pati Bustos on 03/04/19 4:30 pm * Is the patient Alert and Oriented? Yes * How many steps to enter\exit or inside your home? * PCP BLANCO * Pharmacy [facility] * Preadmission Environment Home with Family * ADLs Independent * Other Equipment HOME 02 / PORTABLE, NEBULIZER, CPAP,WALKER, CANE * List name and contact numbers for known caregivers / representatives who currently or will assist patient after discharge: JAYDA LICEA - DAUGHTER - [phone] * Verbal permission to speak to the caregivers and representatives has been obtained from the patient. No * Community resources currently utilized None * Additional services required to return to the preadmission environment? No * Can the patient safely return to the preadmission environment? Yes * Has this patient been hospitalized within the prior 30 days at any hospital? No Patient Name: NARGIS CUELLO Page [id number] at 1635 All edits/amendments must be made on the electronic document DICTATION DATE: 03/04/191634 SCRUM MASTER: ERLIN 03/04/19 1635 RPT#: [id number] DC DATE: STATUS: ADM IN [facility] [address] [place] [address] END OF REPORT
--- NOTE | 2019-03-04 17:00 | NUR ---
PT SITTING UP IN BED, FAMILY AT BEDSIDE, UPDATE PROVIDED. NO SIGNS/SYMPTOMS OF PAIN OR DISCOMFORT NOTED. WILL CONTINUE TO OBSERVE.
--- NOTE | 2019-03-04 19:00 | NUR ---
PT SITTING UP IN BED WATCHING TV, RESP EFFORT MODERATELY LABORED, PT STATES THAT SHE HAS BEEN COUGHING UP SOME THICK MUCUS. PT DENIES COMPLAINTS AT THIS TIME
--- NOTE | 2019-03-04 21:00 | NUR ---
PT SITTING IN BED WITH FAMILY AT THE BEDISDE, RESP EFFORT STILL LABORED, PT C/O COUGHING MORE AND CHEST, AND BACK PAIN. PT INFORMED THAT NURSE WOULD GET HER SOME PRN PAIN MEDICINE
--- NOTE | 2019-03-04 23:00 | NUR ---
PT RESTING WITH EYES CLOSED, RESP EFFORT MORE RELAXED AND NOT LABORED. NO DISTRESS NOTED
[2019-03-05] VITALS (25 sets, daily range): BP systolic 103–147; BP diastolic 64–94
--- NOTE | 2019-03-05 01:00 | NUR ---
PT RESTING IN BED WITH EYES CLOSED, RESP MILDLY LABORED AT THIS TIME. NO COMPLAINTS VOICED
[2019-03-05 02:50] LABS: BASOPHILS 0 % (0-2); EOSINOPHILS 0 % (0-7); HEMATOCRIT 36.4 % (36.0-48.0); HEMOGLOBIN 11.3 g/dL (12-16); IMMATURE GRANULOCYTES 0.4 % (0-5); LYMPHOCYTES 7.6 % (15-50); MCH 28.3 pg (26.0-34.0); MONOCYTES 3.9 % (2-11); NEUTROPHILS 88.1 % (40-80); PLATELET COUNT 320 10x3/uL (130-400); RDW 14.8 % (11.5-14.5)
--- NOTE | 2019-03-05 03:00 | NUR ---
PT RESTING IN BED, COUGHING AND C/O BACK AND CHEST PAIN, PRN MED GIVEN
[2019-03-05 03:03] LABS: ALBUMIN 2.7 g/dL (3.4-5.0); ANION GAP 14.7 mmol/L (8-16); BILIRUBIN - TOTAL 0.25 mg/dL (0.2-1.3); CALCIUM 8.9 mg/dL (8.5-10.1); CARBON DIOXIDE 28.4 mmol/L (21.0-32.0); CREATININE - SERUM 0.9 mg/dL (0.6-1.3); MAGNESIUM - SERUM 2.3 mg/dL (1.8-2.4); POTASSIUM - SERUM 4.1 mmol/L (3.5-5.1); PROTEIN - SERUM 7.3 g/dL (6.4-8.2)
[2019-03-05 03:04] LABS: PHOSPHOROUS 5.1 mg/dL (2.5-4.9)
--- NOTE | 2019-03-05 05:00 | NUR ---
PT RESTING IN BED WITH EYES CLOSED RESP EVEN NON LABORED
--- NOTE | 2019-03-05 07:00 | NUR ---
SHIFT ASSESSMENT COMPLETED. PT CARE ASSUMED. MONITORS ON AND WORKING VITALS STABLE, PT AWAKE AND ALERT, NO SIGNS/SYMPTOMS OF PAIN OR DISCOMFORT NOTED AT THIS TIME, CALL LIGHT WITHIN REACH WILL CONTINUE TO OBSERVE.
--- NOTE | 2019-03-05 09:00 | NUR ---
PT SITTING UP IN BED, FAMILY AT BEDSIDE, UPDATE PROVIDED. MONITORS ON AND WORKING, VITALS STABLE. NO SIGNS/SYMPTOMS OF PAIN OR DISCOMFORT AT THIS TIME, WILL CONTINUE TO OBSERVE.
--- NOTE | 2019-03-05 09:18 | NUR ---
Nutrition follow-up: Pt now in ICU following rapid response due to breathing issues Pt continues to cough today Diet: Low sodium PO intake ~60% of meals Labs reviewed Wt: 150# RDN following.
--- NOTE | 2019-03-05 11:00 | NUR ---
PT SITITNG UP EATING LUNCH, MONITORS ON AND WORKING, SEE FLOW SHEET FOR FURTHER DETAILS. CALL LIGHT WITHIN REACH, WILL CONTINUE TO OBSERVE.
--- NOTE | 2019-03-05 13:00 | NUR ---
CHG BED BATH DONE, COMPLETE LINEN CHANGE DONE AT THIS TIME WELL. MONITORS ON AND WORKING, VITALS STABLE, PT AWAKE AND ALERT, CALL LIGHT WITHIN REACH WILL CONTINUE TO OBSERVE.
--- NOTE | 2019-03-05 15:00 | NUR ---
PT SITTING UP IN BED, FAMILY AT BEDSIDE, MONITORS ON AND WORKING, VITALS STABLE, NO SIGNS/SYMPTOMS OF PAIN OR DISCOMFORT NOTED AT THIS ITME, WILL CONTINUE TO OBSERVE. CALL LIGHT WITHIN REACH SEE FLOW SHEET FOR FURTHER DETIALS.
--- NOTE | 2019-03-05 17:00 | NUR ---
PT SITTING UP IN BED EATING DINNER, MONITORS ON AND WORKING, VITALS STABLE, CALL LIGHT WITHIN REACH, WILL CONTINUE TO OBSERV.E
--- NOTE | 2019-03-05 19:00 | NUR ---
REPORT RECEIVED INITIAL ASSESSMENT COMPLETE PT AWAKE ALERT AND ORIENTED. CM READING SR WITHOUT ECTOPY ALARMS ON AND AUDIBLE. RESP EVEN AND NONLABORED AT REST BECOMES SOB WITH EXERTION SHE GETS UP TO BSC INDEPENDENTLY TAKES A FEW MINUTES TO CATCH BREATH WELL WITH COUGHING SPELLS PULSE OX DROPS TO MID TO LOW 80'S. DOES GO BACK TO 90'S FAIRLY QUICKLY. O2 PER HIGH FLOW NC 13 LPM. CALL LIGHT IN REACH BED LOW POSITION ENCOURAGED PT TO CALL NURSE WITH ANY NEEDS. SHE ASKS WHAT TIME SHE CAN GET PAIN MED INFORMED I WOULD CHECK.
[2019-03-06] VITALS (17 sets, daily range): BP systolic 104–150; BP diastolic 55–101
--- NOTE | 2019-03-06 01:00 | NUR ---
PT COUGHING SEVERE EPISODE UPON WAKING UP. WHILE PT WAS SLEEPING NO COUGH SOON SHE WAKES BEGINS TO COUGH. O2 SATS DROPPED TO 81%. ENCOURAGED TO BREATHE IN THROUGH NOSE OUT THROUGH MOUTH O2 SATS BACK UP TO 90% AFTER COUGHING SPELL SUBSIDES
--- NOTE | 2019-03-06 03:00 | NUR ---
REASSESSMENT MADE NO CHANGES CPOC PT INDEPENDENT WITH ADLS
[2019-03-06 03:28] LABS: BASOPHILS 0 % (0-2); EOSINOPHILS 0.6 % (0-7); HEMATOCRIT 30.3 % (36.0-48.0); HEMOGLOBIN 9.4 g/dL (12-16); IMMATURE GRANULOCYTES 0.4 % (0-5); LYMPHOCYTES 2.5 % (15-50); MCH 27.6 pg (26.0-34.0); MCV 89.1 fL (80.0-100.0); MEAN PLATELET VOLUME 8.8 fL (7.4-10.4); MONOCYTES 2.6 % (2-11); NEUTROPHILS 93.9 % (40-80); PLATELET COUNT 262 10x3/uL (130-400); RDW 14.4 % (11.5-14.5); WBC 9.5 10x3/uL (4.8-10.8)
[2019-03-06 03:49] LABS: ALBUMIN 2.5 g/dL (3.4-5.0); ALKALINE PHOSPHATASE 99 U/L (46-116); ALT (SGPT) 86 U/L (10-68); BILIRUBIN - TOTAL 0.32 mg/dL (0.2-1.3); CALC OSMOLALITY 286 mosm/kg (275-300); CALCIUM 8.2 mg/dL (8.5-10.1); CHLORIDE - SERUM 105 mmol/L (98-107); CREATININE - SERUM 0.7 mg/dL (0.6-1.3); GLUCOSE 126 mg/dL (74-106); MAGNESIUM - SERUM 2.1 mg/dL (1.8-2.4); PHOSPHOROUS 4.4 mg/dL (2.5-4.9); POTASSIUM - SERUM 3.6 mmol/L (3.5-5.1); PROTEIN - SERUM 6.3 g/dL (6.4-8.2); SODIUM 143 mmol/L (136-145); UREA NITROGEN 12 mg/dL (7-18); eGFR NON AFRICAN AMERICAN > 90 mL/min (90-120)
--- NOTE | 2019-03-06 06:00 | NUR ---
PT RESTING WITH EYES CLOSED DOES NOT COUGH WHEN SLEEPING BUT WHEN AWAKE FREQUENT COUGHTING CPOC
--- NOTE | 2019-03-06 07:39 | NUR ---
PT AWAKE AND ORIENTED. 13L OXYMIZER, SPO2 92%. PERSISTENT COUGH NOTED. PT C/O PAINFUL CHEST DUE TO COUGHING. NORCO AND SCHEDULED MEDS GIVEN. PT DIDI WELL. PT UP TO BSC.
--- NOTE | 2019-03-06 09:18 | EC ---
PATIENT:NARGIS CUELLO DATE OF SERVICE: 03/02/19 SEX: F MEDICAL RECORD: [id number] DATE OF : [birth year] LOCATION:[facility] D230 AGE OF PATIENT: 49 ADMISSION DATE: 03/02/19 REFERRING PHYSICIAN: INTERPRETING PHYSICIAN: AUSTIN ALMONTE MD ECHOCARDIOGRAM REPORT ECHO CHARGES 4 ECHO COMPLETE Date: 03/04/19 CLINICAL DIAGNOSIS: SYNCOPE ECHOCARDIOGRAPHIC MEASUREMENTS (adult normal given) AC root (d.<3.7cm) 2.9 cm LV Septum d (<1.2 cm> 1.1 cm Valve Excursion 1.4 cm LV Septum (systole) 1.2 cm Left Atria (s.<4.0cm> 3.3 cm LVPW d(<1.2cm) 1.2 cm RV (d.<2.3cm) 3.5 cm LVPW (sytole) 1.3 cm LV diastole(<5.6CM) 4.8 cm MV E-F(>70mm/sec) cm LV systole 3.6 cm LVOT Diameter 1.9 cm MV exc.(>10mm) 1.5 cm Est.ejection fraction (50-75%) % DOPPLER: LVIT cm/sec A 85.0 cm/sec E 76.0 cm/sec LA cm/sec RVSP 28 mmHg LVOT 94 cm/sec AOP1/2T m/s Asc. Ao 128 cm/sec RVOT 81 cm/sec RA cm/sec PA 109 cm/sec AV Gradient Peak 6.59 mmHg AV Mean 3.83 mmHg AV Area 2.4 cm MV Gradient Peak 4.82 mmHg MV Mean 2.14 mmHg MV Area cm COMMENTS: Legal Manager: Brando WEBER Atomic Physics Professor: 1 Dr. Almonte TAPE# PACS Pericardial Effusion N DATE OF SERVICE: ECHOCARDIOGRAM FINDINGS: 1. Left ventricular chamber size is within normal limits. Left ventricular systolic function is normal. Overall ejection fraction estimated at 55%. 2. Left atrium is within normal limits at 3.3 cm. Right atrium and right ventricular chamber sizes are mildly dilated. 3. Valvular structures have normal structure and motion. ECHOCARDIOGRAM REPORT [id number] NARGIS CUELLO Y 4. Doppler interrogation reveals no significant valvular insufficiency or stenosis. Pulmonary systolic pressure is estimated at 28 mmHg. 5. No evidence of pericardial effusion or left ventricular thrombus. TRANSINT:[id number] Voice Confirmation ID: [id number] DOCUMENT ID: [id number] AUSTIN ALMONTE MD at 0918 CC: [id number] DICTATION DATE: 03/04/19 1300 SOFTWARE QUALITY ASSURANCE ENGINEER: 03/04/19 1425 ADM IN [facility] [address] [place] [address]
--- NOTE | 2019-03-06 13:55 | NUR ---
PT C/O PAIN WITH COUGHING. NORCO GIVEN WITH ADEQUATE R/O PAIN.
--- NOTE | 2019-03-06 19:00 | NUR ---
REPORT RECEIVED INITIAL ASSESSMENT COMPLETE. PT RESTING QUIETLY WITH EYES CLOSED VSS AT THIS TIME O2 PER HIGH FLOW NC 13 LPM WITH O2 SAT 96%. NO DISTRESS AT THIS TIME. CM READING SR NO ECTOPY ALARMS ON AND AUDIBLE. CALL LIGHT IN REACH
--- NOTE | 2019-03-06 20:24 | NUR ---
PT C/O PAIN AND REQUESTING COUGH SYRUP. INFORMED THE COUGH SYRUP NOT DUE YET WOULD BE COUPLE HOURS C/O PAIN SEE EMAR FOR PRN MED
--- NOTE | 2019-03-06 22:00 | NUR ---
PT STATES PAIN BETTER. PRN MED EFFECTIVE. PT UP TO BSC WITHOUT ASSISTANCE CLEAR YELLOW URINE NOTED IN BSC PT ABLE TO PERFORM ADL INDEPENDENTLY
--- NOTE | 2019-03-06 23:15 | NUR ---
ANSWERED PTS CALL LIGHT REQUEST FOR MORPHINE FOR PAIN FROM FREQUENT COUGHING PT HAS CHRONIC BACK PAIN ADDED TO THE PAIN IN TRUNK REGION FROM COUGHING SEE EMAR. WILL CONTINUE TO MONITOR
[2019-03-07] VITALS (24 sets, daily range): BP systolic 122–152; BP diastolic 52–120
--- NOTE | 2019-03-07 01:00 | NUR ---
INTO CHECK ON PATIENT RESTING QUIETLY WITH EYES CLOSED VSS AT THIS TIME. O2 CONTINUES AT 13 LPM HFNC
--- NOTE | 2019-03-07 03:00 | NUR ---
REASSESSMENT MADE SEE FLOWSHEET NO CHANGE CPOC
[2019-03-07 03:18] LABS: BASOPHILS 0 % (0-2); EOSINOPHILS 0 % (0-7); HEMATOCRIT 30.6 % (36.0-48.0); HEMOGLOBIN 9.5 g/dL (12-16); IMMATURE GRANULOCYTES 0.8 % (0-5); LYMPHOCYTES 3.6 % (15-50); MCH 27.3 pg (26.0-34.0); MCV 87.9 fL (80.0-100.0); MEAN PLATELET VOLUME 8.7 fL (7.4-10.4); NEUTROPHILS 91.6 % (40-80); PLATELET COUNT 267 10x3/uL (130-400); RBC 3.48 10x6/uL (4.00-5.40); RDW 14.2 % (11.5-14.5); WBC 10.3 10x3/uL (4.8-10.8)
--- NOTE | 2019-03-07 03:20 | NUR ---
FORMATION TESTING OPERATOR DRAWING AM LABS
[2019-03-07 03:42] LABS: ALBUMIN 2.4 g/dL (3.4-5.0); ALKALINE PHOSPHATASE 85 U/L (46-116); ALT (SGPT) 92 U/L (10-68); BILIRUBIN - TOTAL 0.21 mg/dL (0.2-1.3); CALC OSMOLALITY 284 mosm/kg (275-300); CALCIUM 8.3 mg/dL (8.5-10.1); CARBON DIOXIDE 33.5 mmol/L (21.0-32.0); CHLORIDE - SERUM 103 mmol/L (98-107); CREATININE - SERUM 0.6 mg/dL (0.6-1.3); GLUCOSE 149 mg/dL (74-106); MAGNESIUM - SERUM 2.1 mg/dL (1.8-2.4); PHOSPHOROUS 3.6 mg/dL (2.5-4.9); POTASSIUM - SERUM 3.9 mmol/L (3.5-5.1); PROTEIN - SERUM 6.1 g/dL (6.4-8.2); SODIUM 142 mmol/L (136-145); UREA NITROGEN 9 mg/dL (7-18); eGFR NON AFRICAN AMERICAN > 90 mL/min (90-120)
--- NOTE | 2019-03-07 04:00 | NUR ---
PT UP TO BSC INDEPENDENTLY. LEFT BATH SUPPLIES FOR PATIENT WHEN SHES READY FOR BATH
--- NOTE | 2019-03-07 05:45 | NUR ---
ANSWERED PTS CALL LIGHT. COUGHING CAUSING PAIN TIME FOR HER COUGH SYRUP SEE EMAR
--- NOTE | 2019-03-07 07:10 | NUR ---
ANSWERED PTS CALL LIGHT SHE IS COUGHING NONSTOP AND HURTING SEE EMAR PRN MED GIVEN ALSO ASKED FOR COFFEE
--- NOTE | 2019-03-07 08:43 | NUR ---
BREAKFAST TRAY SERVED. PT EATING WITH OUT PROBLEMS. FAMILY AT BS. C/O PAIN AND IS ASKIN FOR MS. PAIN TO CHEST AND BACK RATES AT 4 . MS GIVEN ORDERED.
--- NOTE | 2019-03-07 13:37 | NUR ---
PT OOB TO BSC. C/O H/A NORCO GIVEN WITH ADEQUATE R/O PAIN.
--- NOTE | 2019-03-07 15:17 | NUR ---
PT CO H/A AND CHEST ACHES AND BACK PAIN. PT ASKING FOR MS. 2MG MS GIVEN ORDERED. PT VERB ADEQUATE R/O PAIN.
--- NOTE | 2019-03-07 19:00 | NUR ---
REPORT RECEIVED INITIAL ASSESSMENT COMPLETE. PT ALERT AND ORIENTED STATES SHE FEELS A LITTLE BETTER STILL COUGHING BUT NOT SEVERE. STILL ON HIGH FLOW NC O2 SATS 98% AT THIS TIME. CM READING SR WITHOUT ECTOPY ALARMS ON AND AUDIBLE. PT UP TO BSC INDEPENDENTLY CLEAR YELLOW URINE NOTED TO BSC LARGE AMOUNT 3200 CC EMPTIED WELL PT HAD HAD SMALL BROWN SEMIFORMED BM PT PERFORMS PERINEAL ADL INDEPENDENTLY. CALL LIGHT IN REACH. ENCOURAGED PT TO CALL NURSE WITH ANY NEEDS.
--- NOTE | 2019-03-07 20:15 | NUR ---
PT TIRED COUGHING KEEPING HER FROM RESTING. SORE ALL OVER FROM COUGHING AND ALSO HAS C/O CHRONIC BACK PAIN WELL HURTING FROM UNCOMFORTABLE BED. STARTED WITH PO PRN MED SEE EMAR
--- NOTE | 2019-03-07 23:00 | NUR ---
reassessment MADE NO CHANGES PT RESTING VSS CPOC
[2019-03-08] VITALS (15 sets, daily range): BP systolic 107–150; BP diastolic 43–89
--- NOTE | 2019-03-08 03:00 | NUR ---
REASSESSMENT MADE NO CHANGES. CPOC SEE EMAR FOR PRN MEDICATION ADMINISTRATION
[2019-03-08 03:49] LABS: BASOPHILS 0.1 % (0-2); EOSINOPHILS 0.1 % (0-7); HEMATOCRIT 32.5 % (36.0-48.0); HEMOGLOBIN 10.1 g/dL (12-16); IMMATURE GRANULOCYTES 1.9 % (0-5); LYMPHOCYTES 6.2 % (15-50); MCH 27.4 pg (26.0-34.0); MCHC 31.1 g/dL (31.0-37.0); MCV 88.3 fL (80.0-100.0); MEAN PLATELET VOLUME 8.8 fL (7.4-10.4); MONOCYTES 6.4 % (2-11); NEUTROPHILS 85.3 % (40-80); PLATELET COUNT 285 10x3/uL (130-400); RBC 3.68 10x6/uL (4.00-5.40); WBC 8.9 10x3/uL (4.8-10.8)
[2019-03-08 04:07] LABS: ALBUMIN 2.7 g/dL (3.4-5.0); ALKALINE PHOSPHATASE 73 U/L (46-116); ALT (SGPT) 70 U/L (10-68); BILIRUBIN - TOTAL 0.23 mg/dL (0.2-1.3); C-REACTIVE PROTEIN 2.6 mg/dL (0.0-0.9); CALC OSMOLALITY 283 mosm/kg (275-300); CALCIUM 8.6 mg/dL (8.5-10.1); CARBON DIOXIDE 36.6 mmol/L (21.0-32.0); CHLORIDE - SERUM 102 mmol/L (98-107); CREATININE - SERUM 0.6 mg/dL (0.6-1.3); GLUCOSE 131 mg/dL (74-106); POTASSIUM - SERUM 3.6 mmol/L (3.5-5.1); PROTEIN - SERUM 6.4 g/dL (6.4-8.2); SODIUM 142 mmol/L (136-145); UREA NITROGEN 10 mg/dL (7-18); eGFR NON AFRICAN AMERICAN > 90 mL/min (90-120)
--- NOTE | 2019-03-08 06:00 | NUR ---
COMPLETE LINEN CHANGE AND PT BATH SUPPLIES SET UP SHE IS ABLE TO WASH SELF INDEPENDENTLY. SHAMPOO HAIR SHE WILL DO LATER TOO TIRED AT THIS TIME. VSS CPOC
--- NOTE | 2019-03-08 07:00 | NUR ---
RECEIVED REPORT FROM NIGHT NURSE. PT RESTING IN BED AWAKE ALERT AND ORIENTED WITH STABLE VS ON 4L NC. WILL CHECK ORDERS AND CONTINUE TO MONITOR
--- NOTE | 2019-03-08 09:00 | NUR ---
PT HAD BM IN BSC AND CLEANED SELF. VSS. WILL CONTINUE TO MONITOR
--- NOTE | 2019-03-08 09:27 | NUR ---
Nutrition follow-up: Pt currently out of room for x-ray Diet: Low sodium PO intake 100% of most meals; pt continues to cough Labs reviewed Wt: 163# +BM RDN following.
--- NOTE | 2019-03-08 09:45 | NUR ---
TOOK PATIENT TO CT OF NECK PER ORDERS VIA WHEEL CHAIR. RETURNED SAFELY. HOOKED BACK UP TO MONITOR WITH VSS
--- NOTE | 2019-03-08 10:37 | NUR ---
REPORT GIVEN TO MEGAN LUQUE. PT RAMSEY.
--- NOTE | 2019-03-08 17:33 | NUR ---
REPORT CALLED TO FLOOR NURSE
--- NOTE | 2019-03-08 18:49 | NUR ---
I have reviewed this patient and I concur with the Shift Assessment completed by the Licensed Practical Nurse today this shift.
--- NOTE | 2019-03-08 19:25 | NUR ---
AWAKE AND ALERT O2 AT 4L LUNGS WITH INSPIROTORY WHEEZES SKIN WARM AND DRY PT IS CO OF PAIN MSO4 WILL BE GIVEN BED IS LOW AND LOCKED CALL LIGHT IN REACH
--- NOTE | 2019-03-08 21:42 | NUR ---
RESTING QUIETLY NOW WITH EYES CLOSED RESP EVEN AND O2 IS IN PLACE
--- NOTE | 2019-03-09 00:49 | NUR ---
I have reviewed this patient and I concur with the Shift Assessment completed by the Licensed Practical Nurse today this shift.
[2019-03-09 04:00] VITALS: BP 148/78
[2019-03-09 05:49] LABS: BASOPHILS 0 % (0-2); EOSINOPHILS 0 % (0-7); HEMATOCRIT 31.1 % (36.0-48.0); HEMOGLOBIN 9.8 g/dL (12-16); IMMATURE GRANULOCYTES 3.8 % (0-5); LYMPHOCYTES 5.3 % (15-50); MCH 27.5 pg (26.0-34.0); MCHC 31.5 g/dL (31.0-37.0); MCV 87.1 fL (80.0-100.0); MEAN PLATELET VOLUME 8.8 fL (7.4-10.4); MONOCYTES 4.5 % (2-11); NEUTROPHILS 86.4 % (40-80); PLATELET COUNT 330 10x3/uL (130-400); RBC 3.57 10x6/uL (4.00-5.40); WBC 7.3 10x3/uL (4.8-10.8)
[2019-03-09 06:06] LABS: CALC OSMOLALITY 281 mosm/kg (275-300); CALCIUM 8.3 mg/dL (8.5-10.1); CARBON DIOXIDE 33.9 mmol/L (21.0-32.0); CHLORIDE - SERUM 101 mmol/L (98-107); CREATININE - SERUM 0.7 mg/dL (0.6-1.3); GLUCOSE 145 mg/dL (74-106); POTASSIUM - SERUM 3.7 mmol/L (3.5-5.1); SODIUM 140 mmol/L (136-145); UREA NITROGEN 12 mg/dL (7-18); eGFR NON AFRICAN AMERICAN > 90 mL/min (90-120)
--- NOTE | 2019-03-09 07:20 | NUR ---
PT RESTING IN BED, EYES OPEN. ALERT AND ORIENTED. NO C/O PAIN. NO S/S OF ACUTE DISTRESS NOTED. UP AD JAEL. ON ELECTROLYTE PROTOCOL. ON 4L O2, NC. LEFT SUBCLAVIAN PORT, LR INFUSING @ 75ML/HR. SITE PATENT WITHOUT REDNESS OR SWELLING. PT DENIES ANYTHING FURTHER AT THIS TIME. CALL LIGHT IN REACH. WILL CONTINUE TO MONITOR.
[2019-03-09 09:00] VITALS: BP 147/57; BP 148/67
[2019-03-09 12:00] VITALS: BP 108/64
--- NOTE | 2019-03-09 15:38 | NUR ---
I have reviewed this patient and I concur with the Shift Assessment completed by the Licensed Practical Nurse today this shift.
[2019-03-09 17:06] VITALS: BP 117/59
--- NOTE | 2019-03-09 18:49 | NUR ---
PT RESTING IN BED, EYES OPEN. NO C/O PAIN. NO S/S OF ACUTE DISTRESS NOTED. CALL LIGHT IN REACH. PT DENIES ANYTHING FURTHER. WILL CONTINUE TO MONTIOR.
--- NOTE | 2019-03-09 20:06 | NUR ---
REPORT RECIEVED AND ROUNDING COMPLETE. PATIENT LAYING IN BED. EYES CLOSED BREATHING SHALLOW BUT EVEN. PATIENT IS SHOWING NO S/SX OF DISTRESS AT THIS TIME. CALL LIGHT WITHIN REACH AND BED IN LOWEST POSITION AND LOCKED.
[2019-03-09 21:07] VITALS: BP 132/67
--- NOTE | 2019-03-10 00:17 | NUR ---
I have reviewed this patient and I concur with the Shift Assessment completed by the Licensed Practical Nurse today this shift.
[2019-03-10 01:00] VITALS: BP 135/70
--- NOTE | 2019-03-10 04:53 | NUR ---
PATIENT LAYING IN BED EYES CLOSED BREATHING EVEN AND UNLABORED. CALL LIGHT WIHTIN REACH AND BED IN LOWEST POSITION. SO S/SX OF DISTRESS AT THIS TIME.
[2019-03-10 05:02] VITALS: BP 144/82
[2019-03-10 06:44] LABS: BASOPHILS 0.1 % (0-2); CALC OSMOLALITY 281 mosm/kg (275-300); CALCIUM 8.3 mg/dL (8.5-10.1); CARBON DIOXIDE 34.3 mmol/L (21.0-32.0); CHLORIDE - SERUM 103 mmol/L (98-107); CREATININE - SERUM 0.6 mg/dL (0.6-1.3); EOSINOPHILS 0 % (0-7); GLUCOSE 131 mg/dL (74-106); HEMATOCRIT 31.9 % (36.0-48.0); IMMATURE GRANULOCYTES 5.4 % (0-5); MCH 27.2 pg (26.0-34.0); MCHC 31.3 g/dL (31.0-37.0); MCV 86.7 fL (80.0-100.0); MONOCYTES 7.9 % (2-11); NEUTROPHILS 80.6 % (40-80); PLATELET COUNT 364 10x3/uL (130-400); POTASSIUM - SERUM 4.1 mmol/L (3.5-5.1); RBC 3.68 10x6/uL (4.00-5.40); RDW 14.1 % (11.5-14.5); SODIUM 140 mmol/L (136-145); UREA NITROGEN 14 mg/dL (7-18); WBC 8.4 10x3/uL (4.8-10.8); eGFR NON AFRICAN AMERICAN > 90 mL/min (90-120)
--- NOTE | 2019-03-10 07:25 | NUR ---
PT RESTING IN BED, ALERT AND ORIENTED. C/O PAIN. GAVE NORCO FOR PAIN. UP AD JAEL. EXPIRATORY AND INSPIRATORY WHEEZES AUSCULTATED BILATERAL LUNGS ALL LOBES. PT ON 4L O2, NC. PORT LEFT CHEST, LR INFUSING @ 75ML/HR. SITE PATENT WITHOUT REDNESS OR SWELLING. ON ELECTROLYTE PROTOCOL. PT DENIES ANYTHING FURTHER AT THIS TIME. CALL LIGHT IN REACH. WILL CONTINUE TO MONITOR.
[2019-03-10 09:10] VITALS: BP 140/75
[2019-03-10 13:24] VITALS: BP 147/72
--- NOTE | 2019-03-10 14:33 | NUR ---
NEW DRESSING TO LEFT SUBCLAVIAN PORT, PERFORMED VIA STERILE PROCEDURE. VOICES NO COMPLAINTS.
--- NOTE | 2019-03-10 16:39 | NUR ---
I have reviewed this patient and I concur with the Shift Assessment completed by the Licensed Practical Nurse today this shift.
[2019-03-10 17:43] VITALS: BP 122/63
[2019-03-10 20:00] VITALS: BP 117/65
--- NOTE | 2019-03-10 20:00 | NUR ---
PT SITTING UP IN BED WITHOUT DISTRESS, ALERT AND ORIENTED. O2 4L/HFNC. LEFT CHEST PORT INFUSING LR. REQUESTED AND GIVEN SANDWICH TRAY AND WATER. STATES PAIN 5/10. GAVE MORHPINE ORDERED. DENIES OTHER NEEDS. CL IN REACH, WILL CTM
[2019-03-11] VITALS: BP 112/50
[2019-03-11 04:00] VITALS: BP 123/72
[2019-03-11 07:39] LABS: HEMATOCRIT 35.3 % (36.0-48.0); HEMOGLOBIN 11.1 g/dL (12-16); MCH 27.3 pg (26.0-34.0); MCHC 31.4 g/dL (31.0-37.0); MCV 86.9 fL (80.0-100.0); MEAN PLATELET VOLUME 8.9 fL (7.4-10.4); PLATELET COUNT 377 10x3/uL (130-400); RBC 4.06 10x6/uL (4.00-5.40); RDW 14.4 % (11.5-14.5)
--- NOTE | 2019-03-11 07:40 | NUR ---
PT SITTING UP IN BED. NO ACUTE DISTRESS NOTED. O2 @ 3L HIFLO. DENIES PAIN AT THIS TIME. IV TO LEFT CHEST PORT WITH LR @ 50ML/HR INFUSING VIA PUMP. SITE WITHOUT REDNESS OR EDEMA. DENIES FURTHER NEEDS AT THIS TIME. CL WITHIN REACH. ENCOURAGED TO CALL WITH NEEDS. CONTINUE POC
[2019-03-11 07:54] LABS: CALC OSMOLALITY 277 mosm/kg (275-300); CALCIUM 8.5 mg/dL (8.5-10.1); CARBON DIOXIDE 31.5 mmol/L (21.0-32.0); CHLORIDE - SERUM 100 mmol/L (98-107); CREATININE - SERUM 0.6 mg/dL (0.6-1.3); GLUCOSE 124 mg/dL (74-106); MAGNESIUM - SERUM 2.4 mg/dL (1.8-2.4); PHOSPHOROUS 4.8 mg/dL (2.5-4.9); POTASSIUM - SERUM 4.6 mmol/L (3.5-5.1); SODIUM 138 mmol/L (136-145); UREA NITROGEN 14 mg/dL (7-18); eGFR NON AFRICAN AMERICAN > 90 mL/min (90-120)
[2019-03-11 08:47] VITALS: BP 130/77
[2019-03-11 08:50] LABS: LYMPHOCYTES 12 % (15-50); MONOCYTES 15 % (2-11); NEUTROPHILS 71 % (40-80); PLATELET ESTIMATE NORMAL
[2019-03-11 14:10] VITALS: BP 119/68
[2019-03-11 16:03] VITALS: BP 120/60
[2019-03-11 20:00] VITALS: BP 125/74
[2019-03-12 04:00] VITALS: BP 162/90
[2019-03-12 06:37] LABS: CALC OSMOLALITY 279 mosm/kg (275-300); CALCIUM 8.2 mg/dL (8.5-10.1); CARBON DIOXIDE 31.3 mmol/L (21.0-32.0); CHLORIDE - SERUM 100 mmol/L (98-107); CREATININE - SERUM 0.6 mg/dL (0.6-1.3); GLUCOSE 127 mg/dL (74-106); POTASSIUM - SERUM 4.1 mmol/L (3.5-5.1); SODIUM 139 mmol/L (136-145); UREA NITROGEN 13 mg/dL (7-18); eGFR NON AFRICAN AMERICAN > 90 mL/min (90-120)
[2019-03-12 07:14] LABS: BASOPHILS 0.1 % (0-2); EOSINOPHILS 0 % (0-7); HEMATOCRIT 34.1 % (36.0-48.0); HEMOGLOBIN 10.8 g/dL (12-16); IMMATURE GRANULOCYTES 5.6 % (0-5); LYMPHOCYTES 6.8 % (15-50); MCH 27.6 pg (26.0-34.0); MCHC 31.7 g/dL (31.0-37.0); MEAN PLATELET VOLUME 8.9 fL (7.4-10.4); MONOCYTES 5.4 % (2-11); NEUTROPHILS 82.1 % (40-80); PLATELET COUNT 366 10x3/uL (130-400); RBC 3.92 10x6/uL (4.00-5.40); RDW 14.4 % (11.5-14.5); WBC 9.4 10x3/uL (4.8-10.8)
[2019-03-12 08:29] VITALS: BP 131/71
[2019-03-12 13:32] VITALS: BP 156/75
--- NOTE | 2019-03-12 14:55 | NUR ---
NUTRITION F/U CHART REVIEWED. PT TOLERATING AHA DIET WITH 100% INTAKE RECENT MEALS. WILL CONTINUE TO PROVIDE DIET, MONITOR PO INTAKE. RD FOLLOWING
--- NOTE | 2019-03-12 15:15 | NUR ---
I have reviewed this patient and I concur with the Shift Assessment completed by the Licensed Practical Nurse today this shift.
[2019-03-12 18:19] VITALS: BP 151/78
--- NOTE | 2019-03-12 18:49 | NUR ---
I have reviewed this patient and I concur with the Shift Assessment completed by the Licensed Practical Nurse today this shift.
--- NOTE | 2019-03-12 20:15 | NUR ---
PT ALERT AND ORIENTED. REQUESTS PAIN MEDICINE WHEN AVAILABLE. STATES THAT PAIN IS 4/10 BUT HAS TEARS IN EYES WHEN SPEAKING TO HER. LUNGS PRESENT WITH EXPIRATORY WHEEZES AND DIMINISHED SOUNDS IN BILATERAL LOWER LOBES. HAS LEFT CHEST PORT THAT IS PATENT AND INFUSING. DENIES FURTHER ISSUES AT THIS TIME. CONTINUE PLAN OF CARE.
[2019-03-12 21:13] VITALS: BP 104/57
[2019-03-13 05:10] VITALS: BP 99/45
[2019-03-13 07:04] LABS: HEMATOCRIT 35.8 % (36.0-48.0); HEMOGLOBIN 11.3 g/dL (12-16); MCH 27.8 pg (26.0-34.0); MCHC 31.6 g/dL (31.0-37.0); PLATELET COUNT 342 10x3/uL (130-400); RBC 4.07 10x6/uL (4.00-5.40); RDW 14.4 % (11.5-14.5); WBC 9.3 10x3/uL (4.8-10.8)
[2019-03-13 07:33] LABS: LYMPHOCYTES 8 % (15-50); MONOCYTES 3 % (2-11); NEUTROPHILS 87 % (40-80); PLATELET ESTIMATE NORMAL
[2019-03-13 07:40] LABS: CALC OSMOLALITY 281 mosm/kg (275-300); CALCIUM 8.3 mg/dL (8.5-10.1); CARBON DIOXIDE 31.9 mmol/L (21.0-32.0); CHLORIDE - SERUM 100 mmol/L (98-107); CREATININE - SERUM 0.6 mg/dL (0.6-1.3); GLUCOSE 139 mg/dL (74-106); POTASSIUM - SERUM 3.8 mmol/L (3.5-5.1); SODIUM 140 mmol/L (136-145); UREA NITROGEN 16 mg/dL (7-18); eGFR NON AFRICAN AMERICAN > 90 mL/min (90-120)
[2019-03-13 08:45] VITALS: BP 128/71
--- NOTE | 2019-03-13 09:25 | NUR ---
ALERT AND ORIENTED X 3. LUNGS WITH BILATERAL WHEEZES. HEART SOUNDS S1 AND S2 HEARD IN ALL NAVA. BOWEL SOUNDS ACTIVE X 4. SKIN INTACT WITHOUT REDNESS. PRN PAIN MEDICAITON REQUESTED AND GIVEN. LEFT CHEST PORT COVERED FOR SHOWER. DENIES FURTHER NEEDS. BED LOW. CALL CEJA AND PERSONAL ITEMS IN REACH. WILL CONTINUE TO MONITOR.
[2019-03-13 12:41] VITALS: BP 121/68
--- NOTE | 2019-03-13 13:52 | NUR ---
RESTING IN BED. DENIES PAIN. DENIES NEEDS. WILL CONTINUE TO MONITOR.
[2019-03-13 16:18] VITALS: BP 95/47
--- NOTE | 2019-03-13 18:12 | NUR ---
REQUESTED AND GIVEN PRN NORCO. BP 129/74 PRIOR TO GIVING.
[2019-03-13 19:51] VITALS: BP 105/63
--- NOTE | 2019-03-13 20:00 | NUR ---
RESTING IN BED, SEE SHIFT ASSESSMENT, CALL MANNY PAIGE
[2019-03-14] VITALS: BP 90/36
[2019-03-14 04:54] VITALS: BP 112/63
[2019-03-14 07:06] LABS: BASOPHILS 0.2 % (0-2); EOSINOPHILS 0.1 % (0-7); HEMATOCRIT 36.8 % (36.0-48.0); HEMOGLOBIN 11.4 g/dL (12-16); IMMATURE GRANULOCYTES 5.9 % (0-5); LYMPHOCYTES 6.2 % (15-50); MCH 27.3 pg (26.0-34.0); MEAN PLATELET VOLUME 8.7 fL (7.4-10.4); MONOCYTES 4.4 % (2-11); NEUTROPHILS 83.2 % (40-80); PLATELET COUNT 359 10x3/uL (130-400); RBC 4.18 10x6/uL (4.00-5.40); RDW 14.8 % (11.5-14.5); WBC 11.2 10x3/uL (4.8-10.8)
[2019-03-14 07:36] LABS: CALC OSMOLALITY 280 mosm/kg (275-300); CALCIUM 8.7 mg/dL (8.5-10.1); CARBON DIOXIDE 33.5 mmol/L (21.0-32.0); CHLORIDE - SERUM 102 mmol/L (98-107); CREATININE - SERUM 0.6 mg/dL (0.6-1.3); GLUCOSE 122 mg/dL (74-106); POTASSIUM - SERUM 4.6 mmol/L (3.5-5.1); SODIUM 140 mmol/L (136-145); UREA NITROGEN 16 mg/dL (7-18); eGFR NON AFRICAN AMERICAN > 90 mL/min (90-120)
[2019-03-14 07:47] VITALS: BP 101/73
--- NOTE | 2019-03-14 11:14 | NUR ---
PT AMBULATING HALLS WITH FAMILY AT THIS TIME NO SIGNS OF DISTRESS NOTED, WILL CONTINUE TO MONITOR
[2019-03-14 13:06] VITALS: BP 135/66
--- NOTE | 2019-03-14 15:00 | NUR ---
rehab prescreen this patient has commerical insurance and will require prior auth before able to make a decision on status of admittance. will follow while waiting for insurance approval. thank you for this eval. theo [employer] lpn clinical liasion
[2019-03-14 17:10] VITALS: BP 125/71
--- NOTE | 2019-03-14 19:07 | NUR ---
PT REFUSES METANEB ADMINISTERED BREATHING TX THROUGH REG NEBULIZER DUE TO DC TOMORROW
--- NOTE | 2019-03-14 19:15 | NUR ---
RECEIVED CARE FROM DAY NURSE. LYING IN BED ON SIDE WITH EYES CLOSED. RESP EVEN AND UNLABORED. CALL LIGHT AT SIDE. LEFT IP SL.
[2019-03-14 20:32] VITALS: BP 113/71
[2019-03-15 04:57] VITALS: BP 113/69
[2019-03-15 05:45] LABS: BASOPHILS 0.2 % (0-2); EOSINOPHILS 0 % (0-7); HEMATOCRIT 38.2 % (36.0-48.0); IMMATURE GRANULOCYTES 5.9 % (0-5); LYMPHOCYTES 5.1 % (15-50); MCH 27.5 pg (26.0-34.0); MCHC 31.4 g/dL (31.0-37.0); MCV 87.6 fL (80.0-100.0); MEAN PLATELET VOLUME 8.7 fL (7.4-10.4); MONOCYTES 4.6 % (2-11); NEUTROPHILS 84.2 % (40-80); PLATELET COUNT 362 10x3/uL (130-400); RBC 4.36 10x6/uL (4.00-5.40); RDW 14.7 % (11.5-14.5); WBC 12.8 10x3/uL (4.8-10.8)
[2019-03-15 05:58] LABS: CALC OSMOLALITY 281 mosm/kg (275-300); CALCIUM 8.9 mg/dL (8.5-10.1); CARBON DIOXIDE 31.3 mmol/L (21.0-32.0); CHLORIDE - SERUM 101 mmol/L (98-107); CREATININE - SERUM 0.7 mg/dL (0.6-1.3); GLUCOSE 122 mg/dL (74-106); MAGNESIUM - SERUM 2.4 mg/dL (1.8-2.4); POTASSIUM - SERUM 4.2 mmol/L (3.5-5.1); SODIUM 139 mmol/L (136-145); UREA NITROGEN 20 mg/dL (7-18); eGFR NON AFRICAN AMERICAN > 90 mL/min (90-120)
--- NOTE | 2019-03-15 06:31 | NUR ---
I have reviewed this patient and I concur with the Shift Assessment completed by the Licensed Practical Nurse today this shift.
--- NOTE | 2019-03-15 07:25 | NUR ---
PT SITTING UP IN BED, ALERT AND ORIENTED. UP AD JAEL. ON 3L O2, HIGHFLOW. LEFT INFUSAPORT TO LEFT CHEST, SL. SITE PATENT WITHOUT REDNESS OR SWELLING. PT C/O PAIN. MORPHINE GIVEN FOR PAIN. NO S/S OF ACUTE DISTRESS NOTED. CALL LIGHT IN REACH. PT DENIES ANYTHING FURTHER AT THIS TIME. WILL CONTINUE TO MONITOR.
[2019-03-15 08:39] VITALS: BP 114/72
[2019-03-15 13:13] VITALS: BP 136/79
[2019-03-15] MEDS ORDERED: BYSTOLIC5 MG PO (13:29)
[2019-03-15] MEDS ORDERED: DALIRESP500 MCG PO (13:29)
[2019-03-15] MEDS ORDERED: PREDNISONE10 MG PO (13:31)
[2019-03-15] MEDS ORDERED: Bactroban ointment TOPICAL (13:32)
--- NOTE | 2019-03-15 13:50 | MORECARE ---
CASE MANAGEMENT DISCHARGE SUMMARY PATIENT: NARGIS CUELLO UNIT: [id number] ADM DATE: 03/02/19 AGE: 49 : 68 SEX: F ROOM/BED: D.2230 AUTHOR: DOROTA,DOC PHYSICIAN: REFERRING PHYSICIAN: JUMA MOORE MD DATE OF SERVICE: 03/15/19 Discharge Plan Patient Name: NARGIS CUELLO Facility: [facility]:[place] : 1970 Planned Disposition: Home Anticipated Discharge Date: Discharge Date: Expected LOS: Initial Reviewer: [id number] Initial Review Date: 03/04/2019 Generated: 03/15/19 2:50 pm Comments DCP- Discharge Planning Updated by [id number]: Hanny Hoffmann on 03/15/19 12:[address] Patient Name: NARGIS CUELLO Encounter No: [id number] : 1970 Primary Insurance: [employer] HLTH EXCHANGE Anticipated DC Date: Planned Disposition: Home External Planned Provider: : DCP follow-up note: Patient and family in agreement with discharge plan. I informed her the doctor has ordered home health, [facility] for [facility] signed. I called [facility] and spoke to criselda Ladd faxed. Daughter is here to drive her home. She has her portable oxygen here. Case management will follow and assist as needed. Hanny Shun DCP- Discharge Planning Updated by [email or web address]: Pati Bustos on 03/04/19 3:[address] Patient Name: NARGIS CUELLO Admission Status: ER Accout number: [id number] Admission Date: 03-02-2019 : 1970 Admission Diagnosis: Attending: JUMA MOORE Current LOS: 2 Anticipated DC Date: Planned Disposition: Home Primary Insurance: [employer] EXCHANGE Discharge Planning Comments: CM met with patient to complete initial dc planning assessment. CM educated patient on the CM role and verbal consent given by patient to complete assessment. Patient lives at home with her where she is independent with her care. At discharge patient plans to return home and feels this is a safe discharge. CM discussed availability of home health, rehab services, and medical equipment. Patient states she will have her family drive her home. Patient has a nebulizer, home o2 and CPAP ( [place] home patient ). Patient states that she has a walker and cane if needed that was her mother's. Patient denied known discharge needs at this time. CM will continue to follow and will assist as needed with dc plans/needs. Tuck Pointer: Pati Bustos DCPIA - Discharge Planning Initial Assessment Updated by [id number]: Pati Bustos on 03/04/19 4:30 pm * Is the patient Alert and Oriented? Yes * How many steps to enter\exit or inside your home? * PCP [facility] * Pharmacy [facility] * Preadmission Environment Home with Family * ADLs Independent * Other Equipment HOME 02 / PORTABLE, NEBULIZER, CPAP,WALKER, CANE * List name and contact numbers for known caregivers / representatives who currently or will assist patient after discharge: JAYDA LICEA - DAUGHTER - [phone] * Verbal permission to speak to the caregivers and representatives has been obtained from the patient. No * Community resources currently utilized None * Additional services required to return to the preadmission environment? No * Can the patient safely return to the preadmission environment? Yes * Has this patient been hospitalized within the prior 30 days at any hospital? No External Providers External Provider: [facility] Next Contact Date: Service Request Date: Service Type: Resolution: Reviewer: Comments: Coverage Notice Reviewer: [id number] - Hanny Hoffmann Notice Issued Date-Time: 03/15/2019 13:48 Notice Type: Patient Choice Letter Notice Delivered To: Patient Relationship to Patient: Self Entry Level Electrician Name: Delivery Method: HAND - Hand Delivered Teresita Days: Prior Verbal Notification: Recipient Understood Notice: Yes Recipient Signature: Yes Med Rec Note Co-signed by Attending: Coverage Notice Comment: [facility] for [facility] Last DP export: 03/04/19 3:35 p Patient Name: NARGIS CUELLO Page [phone] at 1350 All edits/amendments must be made on the electronic document DICTATION DATE: 03/15/19 1350 QUARRY WORKER: ERLIN 03/15/19 1350 RPT#: [id number] DC DATE: STATUS: ADM IN [address] [place] [address] END OF REPORT
--- NOTE | 2019-03-15 13:52 | NUR ---
PATIENT SITTING UP ON THE SIDE OF THE BED. LEFT PORT FLUSHED WITH SALINE AND HEPARIN FLUSH. ACCESS REMOVED AND PORT CLEANED AND DRESSING PLACED. EXPLAINED TO LEAVE DRESSING ON FOR 24 HOURS. VERBALIZED UNDERSTANDING. CALL LIGHT WITHIN REACH. WAITING FOR DC INSTRUCTIONS.
--- NOTE | 2019-03-15 15:00 | NUR ---
PT DISCHARGED HOME VIA WHEELCHAIR WITH FAMILY. WENT OVER DISCHARGE INSTRUCTIONS WITH PT, PT VERBALIZED UNDERSTANDING OF INSRUCTIONS. PT DENIES ANYTHING FURTHER.
--- NOTE | 2019-03-16 07:20 | MORECARE ---
CASE MANAGEMENT DISCHARGE SUMMARY PATIENT: NARGIS CUELLO UNIT: [id number] ADM DATE: 03/02/19 AGE: 49 : 68 SEX: F ROOM/BED: D.2230 AUTHOR: DOROTA,DOC PHYSICIAN: REFERRING PHYSICIAN: JUMA MOORE MD DATE OF SERVICE: 03/16/19 Discharge Plan Patient Name: NARGIS CUELLO Facility: [facility]:[place] : 1970 Planned Disposition: Home Anticipated Discharge Date: Discharge Date: 03/15/2019 Expected LOS: 0 Initial Reviewer: [id number] Initial Review Date: 03/04/2019 Generated: 03/16/19 8:20 am Comments DCP- Discharge Planning Updated by [id number]: Hanny Hoffmann on 03/15/19 12:[address] Patient Name: NARGIS CUELLO Encounter No: [id number] : 1970 Primary Insurance: [employer]. HLTH EXCHANGE Anticipated DC Date: Planned Disposition: Home External Planned Provider: : DCP follow-up note: Patient and family in agreement with discharge plan. I informed her the doctor has ordered home health, [facility] for [place] [facility] signed. I called [facility] and spoke to criselda Ladd faxluba. Daughter is here to drive her home. She has her portable oxygen here. Case management will follow and assist as needed. Hanny Shun DCP- Discharge Planning Updated by [id number]: Pati Bustos on 03/04/19 3:[address] Patient Name: NARGIS CUELLO Admission Status: ER Accout number: [id number] Admission Date: 03-02-2019 : 1970 Admission Diagnosis: Attending: JUMA MOORE Current LOS: 2 Anticipated DC Date: Planned Disposition: Home Primary Insurance: [employer] HLTH EXCHANGE Discharge Planning Comments: CM met with patient to complete initial dc planning assessment. CM educated patient on the CM role and verbal consent given by patient to complete assessment. Patient lives at home with her where she is independent with her care. At discharge patient plans to return home and feels this is a safe discharge. CM discussed availability of home health, rehab services, and medical equipment. Patient states she will have her family drive her home. Patient has a nebulizer, home o2 and CPAP ( [place] home patient ). Patient states that she has a walker and cane if needed that was her mother's. Patient denied known discharge needs at this time. CM will continue to follow and will assist as needed with dc plans/needs. Events Traffic Controller: Pati Bustos DCPIA - Discharge Planning Initial Assessment Updated by [email or web address]: Pati Bustos on 03/04/19 4:30 pm * Is the patient Alert and Oriented? Yes * How many steps to enter\exit or inside your home? * PCP [facility] * Pharmacy [facility] * Preadmission Environment Home with Family * ADLs Independent * Other Equipment HOME 02 / PORTABLE, NEBULIZER, CPAP,WALKER, CANE * List name and contact numbers for known caregivers / representatives who currently or will assist patient after discharge: JAYDA LICEA - DAUGHTER - [phone] * Verbal permission to speak to the caregivers and representatives has been obtained from the patient. No * Community resources currently utilized None * Additional services required to return to the preadmission environment? No * Can the patient safely return to the preadmission environment? Yes * Has this patient been hospitalized within the prior 30 days at any hospital? No Coverage Notice Reviewer: [email or web address] Andrés Hoffmann Notice Issued Date-Time: 03/15/2019 13:48 Notice Type: Patient Choice Letter Notice Delivered To: Patient Relationship to Patient: Self Lathe Spotter Name: Delivery Method: HAND - Hand Delivered Teresita Days: Prior Verbal Notification: Recipient Understood Notice: Yes Recipient Signature: Yes Med Rec Note Co-signed by Attending: Coverage Notice Comment: [facility] for [facility] Last DP export: 03/15/19 12:50 pm Patient Name: NARGIS CUELLO Page [phone] at 0720 All edits/amendments must be made on the electronic document DICTATION DATE: 03/16/19719 BAKER SECOND: ERLIN 03/16/19719 RPT#: [id number] DC DATE:03/15/19 STATUS: DIS IN [facility] [address] [place] [address] END OF REPORT
--- NOTE | 2019-03-16 11:20 | MORECARE ---
CASE MANAGEMENT DISCHARGE SUMMARY PATIENT: NARGIS CUELLO UNIT: [id number] ADM DATE: 03/02/19 AGE: 49 : 68 SEX: F ROOM/BED: D.2230 AUTHOR: DOROTA,DOC PHYSICIAN: REFERRING PHYSICIAN: JUMA MOORE MD DATE OF SERVICE: 03/16/19 Discharge Plan Patient Name: NARGIS CUELLO Facility: [facility]:[place] : 1970 Planned Disposition: Home Anticipated Discharge Date: Discharge Date: 03/15/2019 Expected LOS: 0 Initial Reviewer: [email or web address] Initial Review Date: 03/04/2019 Generated: 03/16/19 12:20 pm Comments DCP- Discharge Planning Updated by [id number]: Hanny Hoffmann on 03/15/19 12:[address] Patient Name: NARGIS CUELLO Encounter No: [id number] : 1970 Primary Insurance: [employer] HLTH EXCHANGE Anticipated DC Date: Planned Disposition: Home External Planned Provider: : DCP follow-up note: Patient and family in agreement with discharge plan. I informed her the doctor has ordered home health, [facility] signed. I called [facility] and spoke to criselda Ladd faxluba. Daughter is here to drive her home. She has her portable oxygen here. Case management will follow and assist as needed. Hanny Shun DCP- Discharge Planning Updated by [id number]: Pati Bustos on 03/04/19 3:[address] Patient Name: NARGIS CUELLO Admission Status: ER Accout number: [id number] Admission Date: 03-02-2019 : 1970 Admission Diagnosis: Attending: JUMA MOORE Current LOS: 2 Anticipated DC Date: Planned Disposition: Home Primary Insurance: [employer] EXCHANGE Discharge Planning Comments: CM met with patient to complete initial dc planning assessment. CM educated patient on the CM role and verbal consent given by patient to complete assessment. Patient lives at home with her where she is independent with her care. At discharge patient plans to return home and feels this is a safe discharge. CM discussed availability of home health, rehab services, and medical equipment. Patient states she will have her family drive her home. Patient has a nebulizer, home o2 and CPAP ( [place] home patient ). Patient states that she has a walker and cane if needed that was her mother's. Patient denied known discharge needs at this time. CM will continue to follow and will assist as needed with dc plans/needs. Doll Dresser: Pati Bustos DCPIA - Discharge Planning Initial Assessment Updated by [id number]: Pati Bustos on 03/04/19 4:30 pm * Is the patient Alert and Oriented? Yes * How many steps to enter\exit or inside your home? * PCP [facility] * Pharmacy [facility] * Preadmission Environment Home with Family * ADLs Independent * Other Equipment HOME 02 / PORTABLE, NEBULIZER, CPAP,WALKER, CANE * List name and contact numbers for known caregivers / representatives who currently or will assist patient after discharge: JAYDA LICEA - DAUGHTER - [phone] * Verbal permission to speak to the caregivers and representatives has been obtained from the patient. No * Community resources currently utilized None * Additional services required to return to the preadmission environment? No * Can the patient safely return to the preadmission environment? Yes * Has this patient been hospitalized within the prior 30 days at any hospital? No Coverage Notice Reviewer: [id number] Andrés Hoffmann Notice Issued Date-Time: 03/15/2019 13:48 Notice Type: Patient Choice Letter Notice Delivered To: Patient Relationship to Patient: Self Restaurant Bartender Name: Delivery Method: HAND - Hand Delivered Teresita Days: Prior Verbal Notification: Recipient Understood Notice: Yes Recipient Signature: Yes Med Rec Note Co-signed by Attending: Coverage Notice Comment: [facility] for [facility] Last DP export: 03/16/19 6:20 am Patient Name: NARGIS CUELLO Page [phone] at 1120 All edits/amendments must be made on the electronic document DICTATION DATE: 03/16/19 1119 COMPATIBILITY TEST ENGINEER: ERLIN 03/16/19 1119 RPT#: [id number] DC DATE:03/15/19 STATUS: DIS IN [facility] [address] [place] [address] END OF REPORT
== END 2019-03-15 15:01 | disposition home health service (06) | DRG 871 ==
LOC: D.ER 18:34 → D.MS 19:21 → D.ICU 19:21 → D.MS 03-03 13:17 → D.ICU 03-04 08:40 → D.MS 03-08 17:36 → D.SDCHOLD 03-10 14:26 → D.MS 03-10 14:30
PROVIDERS: Family Medicine; Internal Medicine Nephrology; Internal Medicine Pulmonary Disease; ADMIT Family Medicine; ATTEND Family Medicine
DX: A41.9 Sepsis, unspecified organism (principal); J96.21 Acute and chronic respiratory failure with hypoxia; J18.1 Lobar pneumonia, unspecified organism; J44.0 Chronic obstructive pulmonary disease with (acute) lower respiratory infection; J44.1 Chronic obstructive pulmonary disease with (acute) exacerbation; C34.31 Malignant neoplasm of lower lobe, right bronchus or lung; F17.203 Nicotine dependence unspecified, with withdrawal; Z99.81 Dependence on supplemental oxygen; Z87.01 Personal history of pneumonia (recurrent); F10.20 Alcohol dependence, uncomplicated; F41.8 Other specified anxiety disorders; K21.9 Gastro-esophageal reflux disease without esophagitis; I10 Essential (primary) hypertension; D53.9 Nutritional anemia, unspecified; R53.81 Other malaise; R47.02 Dysphasia; G47.33 Obstructive sleep apnea (adult) (pediatric); Z91.19 Patient's noncompliance with other medical treatment and regimen; R04.0 Epistaxis; R55 Syncope and collapse

== ENCOUNTER → 2019-06-09 08:05 | Outpatient (CLI) | payer BC, MEDICAID ==
[2019-03-04 11:58] VITALS: BMI 31.4
[~2019-06-09 08:05] MED LIST changes: +ALBUTEROL SULF8.5 GM INH; +BYSTOLIC5 MG PO; +Bactroban ointment TOPICAL; +DALIRESP500 MCG PO; +LOPRESSOR25 MG PO
== END | disposition home or self-care (01) ==
LOC: D.HCCARDIO 08:05
PROVIDERS: ATTEND Internal Medicine Cardiovascular Disease
DX: I20.9 Angina pectoris, unspecified (principal)

== ENCOUNTER 2019-07-12 08:05 | Emergency (ER) | payer MEDICAID ==
[~2019-07-12] VITALS: Ht 147.3 cm; Wt 72.7 kg
[~2019-07-12 08:05] MED LIST changes: -ALBUTEROL SULF8.5 GM INH; -LOPRESSOR25 MG PO
[2019-07-12 08:12] VITALS: Ht 147.3 cm; Wt 72.7 kg
[2019-07-12] MEDS ORDERED: ALBUTEROL SULF8.5 GM INH (08:15)
[2019-07-12] MEDS ORDERED: LOPRESSOR25 MG PO (08:18)
[2019-07-12 09:15] LABS: CALC OSMOLALITY 273 mosm/kg (275-300); CALCIUM 8.7 mg/dL (8.5-10.1); CARBON DIOXIDE 29.2 mmol/L (21.0-32.0); CHLORIDE - SERUM 99 mmol/L (98-107); CREATININE - SERUM 0.6 mg/dL (0.6-1.3); GLUCOSE 95 mg/dL (74-106); POTASSIUM - SERUM 3.6 mmol/L (3.5-5.1); SODIUM 138 mmol/L (136-145); UREA NITROGEN 7 mg/dL (7-18); eGFR NON AFRICAN AMERICAN > 90 mL/min (90-120)
[2019-07-12 09:21] LABS: ALBUMIN 3.4 g/dL (3.4-5.0); ALKALINE PHOSPHATASE 77 U/L (46-116); ALT (SGPT) 29 U/L (10-68); BILIRUBIN - TOTAL 0.43 mg/dL (0.2-1.3); PROTEIN - SERUM 6.9 g/dL (6.4-8.2)
[2019-07-12] MEDS ORDERED: DOXYCYCLINE HY100 M2 PO (09:46)
[2019-07-12 09:47] LABS: BASOPHILS 0.2 % (0-2); HEMATOCRIT 36.4 % (36.0-48.0); HEMOGLOBIN 11.3 g/dL (12-16); IMMATURE GRANULOCYTES 0.2 % (0-5); LYMPHOCYTES 11.8 % (15-50); MCH 27.7 pg (26.0-34.0); MCV 89.2 fL (80.0-100.0); MEAN PLATELET VOLUME 9.2 fL (7.4-10.4); MONOCYTES 8.1 % (2-11); NEUTROPHILS 78.7 % (40-80); RBC 4.08 10x6/uL (4.00-5.40); RDW 15.5 % (11.5-14.5); WBC 9.4 10x3/uL (4.8-10.8)
[2019-07-12 09:48] LABS: PLATELET COUNT 246 10x3/uL (130-400)
[2019-07-12 10:13] VITALS: BP 130/77
== END 2019-07-12 10:14 | disposition home or self-care (01) ==
LOC: D.ER 08:05
PROVIDERS: Emergency Medicine
DX: J47.9 Bronchiectasis, uncomplicated (principal); F17.200 Nicotine dependence, unspecified, uncomplicated; J44.9 Chronic obstructive pulmonary disease, unspecified; K21.9 Gastro-esophageal reflux disease without esophagitis

== ENCOUNTER → 2019-09-30 08:46 | Outpatient (CLI) | payer MEDICAID ==
[2019-07-12 08:12] VITALS: BMI 33.5
[~2019-09-30 08:46] MED LIST changes: +ALBUTEROL SULF8.5 GM INH; +LOPRESSOR25 MG PO
== END | disposition home or self-care (01) ==
LOC: D.RAD 08:46
PROVIDERS: ATTEND Internal Medicine Cardiovascular Disease
DX: R06.00 Dyspnea, unspecified (principal)

== ENCOUNTER → 2019-11-17 07:24 | Outpatient (CLI) | payer MEDICAID ==
[2019-07-12 08:12] VITALS: BMI 33.5
== END | disposition home or self-care (01) ==
LOC: D.RAD 07:24 → D.RT 08:00
PROVIDERS: ATTEND Internal Medicine Pulmonary Disease
DX: C34.90 Malignant neoplasm of unspecified part of unspecified bronchus or lung (principal); J90 Pleural effusion, not elsewhere classified